=== PATIENT | female | born 1945 ===

== ENCOUNTER 2016-10-11 11:16 | Emergency (ER) | payer MEDICARE, MEDICAID ==
[2016-10-11] MEDS ORDERED: Albuterol-Ipratrop 3 mg / 0.5 (3 ml) UD ONE ×2 (11:21→12:31)
[2016-10-11 11:24] VITALS: BMI 24.0
[2016-10-11] MEDS: Albuterol-Ipratrop 3 mg / 0.5 (3 ml) UD IH SCH ×3 (12:00→12:48)
--- NOTE | 2016-10-11 12:12 | RAD ---
HISTORY: sob wheezing copd COMPARISON: Multiple chest radiographs most recently from 09/17/2016. TECHNIQUE: Chest PA and lateral FINDINGS: LUNGS: Scarring, bronchiectasis and architectural distortion in the upper lobes bilaterally. Mild hazy opacities in the lung bases likely atelectasis. Please note that chest x-ray has limited sensitivity for the detection of pulmonary masses. PLEURA: No significant pleural effusion identified. No pneumothorax apparent.Biapical pleural parenchymal thickening noted. CARDIOVASCULAR: Normal. OSSEOUS STRUCTURES: The osseous structures demonstrate degenerative changes. VISUALIZED UPPER ABDOMEN: Upper abdomen is suboptimally evaluated. OTHER FINDINGS: None. IMPRESSION: Interstitial changes in both lungs as before. No significant interval change.
[2016-10-11 12:19] LABS: BASO # 0.1 K/uL (0.0-0.2); BASO % 0.5 % (0.0-2.0); EOS # 0.5 K/uL (0.0-0.7); HEMATOCRIT 45.1 % (34.0-47.0); LYMPH # 1.1 K/uL (1.0-4.3); LYMPH % 10.8 % (20.0-40.0); MEAN CELL VOLUME 86.6 fL (81.0-99.0); MEAN CORPUSCULAR HEMOGLOBIN 28.1 pg (27.0-31.0); MEAN CORPUSCULAR HGB CONC 32.4 g/dL (33.0-37.0); MEAN PLATELET VOLUME 9.5 fL (7.2-11.7); MONO # 0.6 K/uL (0.0-0.8); MONO % 6.2 % (0.0-10.0); RED CELL DISTRIBUTION WIDTH 15.6 % (11.5-14.5); WHITE BLOOD COUNT 10.3 K/uL (4.8-10.8)
[2016-10-11 12:26] LABS: CHLORIDE 97 mmol/L (98-107); POTASSIUM 3.9 mmol/L (3.6-5.2); SODIUM 142 mmol/L (132-148)
[2016-10-11 12:28] LABS: GFR AFRICAN-AMERICAN > 60
[2016-10-11 12:29] LABS: ALB/GLOB RATIO 1.2 (1.0-2.1); ALKALINE PHOSPHATASE 60 U/L (38-126); ALT/SGPT 17 U/L (9-52); AST/SGOT 21 U/L (14-36); BILIRUBIN,TOTAL 0.7 mg/dL (0.2-1.3); BLOOD UREA NITROGEN 8 mg/dL (7-17); CARBON DIOXIDE 32 mmol/L (22-30); GLUCOSE,RANDOM 85 mg/dL (65-105); TOTAL PROTEIN 7.5 g/dL (6.3-8.3)
[2016-10-11 12:30] LABS: CALCIUM 8.8 mg/dl (8.6-10.4)
--- NOTE | 2016-10-11 12:48 | C.PDOC ---
History Of Present Illness 71-year-old female, PMHx includes Asthma and COPD, presents to the emergency department with complaints of shortness of breath, wheezing and chest tightness that started two days ago. Patient reports using her Albuterol at home with minimal relief. Notes that symptoms are consistent with her asthma exacerbation. Denies nausea/vomiting, cough, dizziness, diarrhea, headaches, swelling in extremities, or any other associated symptoms. No other complaints at this time. PMD Shane Jones MD. Time Seen by Provider: 10/11/16 11:43 Chief Complaint (Nursing): Shortness Of Breath History Per: Patient History/Exam Limitations: no limitations Onset/Duration Of Symptoms: Days Current Symptoms Are (Timing): Still Present Past Medical History Reviewed: Historical Data, Nursing Documentation, Vital Signs Vital Signs: Last Vital Signs Temp 98.4 F 10/11/16 13:55 Pulse 78 10/11/16 13:55 Resp 18 10/11/16 13:55 BP 120/72 10/11/16 13:55 Pulse Ox 98 10/11/16 13:55 - Medical History PMH: Arthritis, Asthma, COPD, Diabetes, HTN Denies: Chronic Kidney Disease Family History: States: Unknown Family Hx - Social History Hx Tobacco Use: Yes Hx Alcohol Use: Yes Hx Substance Use: No - Immunization History Hx Tetanus Toxoid Vaccination: No Hx Influenza Vaccination: Yes Hx Pneumococcal Vaccination: Yes Review Of Systems Except As Marked, All Systems Reviewed And Found Negative. Constitutional: Negative for: Fever, Chills Cardiovascular: Positive for: Chest Pain. Negative for: Palpitations, Edema, Light Headedness Respiratory: Positive for: Shortness of Breath, Wheezing. Negative for: Cough Gastrointestinal: Negative for: Nausea, Vomiting Musculoskeletal: Negative for: Neck Pain, Back Pain Skin: Negative for: Rash Neurological: Negative for: Weakness, Numbness, Headache, Dizziness Physical Exam - Physical Exam Appears: Non-toxic, No Acute Distress Skin: Warm, Dry, No Rash Head: Atraumatic, Normacephalic Eye(s): bilateral: Normal Inspection, PERRL, EOMI Nose: Normal Oral Mucosa: Moist Lips: Normal Appearing Neck: Normal ROM Cardiovascular: Rhythm Regular Respiratory: No Accessory Muscle Use, No Rales, No Rhonchi, Wheezing (diffuse expiratory), Other (increased end expiratory phase) Gastrointestinal/Abdominal: Soft, No Tenderness Extremity: Normal ROM Neurological/Psych: Oriented x3, Normal Speech ED Course And Treatment - Laboratory Results Result Diagrams: 10/11/16 12:15 10/11/16 12:15 ECG: Interpreted By Me, Viewed By Me ECG Rhythm: Sinus Rhythm ECG Interpretation: No Acute Changes Rate From EC O2 Sat by Pulse Oximetry: 100 - Radiology CXR: Viewed By Me, Read By Radiologist CXR Interpretation: Yes: Other (INTERSTITIAL CHANGES IN BOTH LUNGS BEFORE. NO SIGNIFICANT INTERVAL CHANGE) Medical Decision Making Medical Decision Makin the pt feels much better. SOB is resolved. spo2 94% on RA while ambulating. pt comfortable w dc and plan for rx. follow up and return precautions advised. Disposition - Disposition Referrals: Shaik Lynn MD [Staff Provider] - Disposition: HOME/ ROUTINE Disposition Time: 13:37 Condition: IMPROVED Additional Instructions: Please follow up with your doctor on Friday. Return to the ER for any worsening symptoms or for any other concerns. Prescriptions: Prednisone [Deltasone] 40 mg PO DAILY #8 tablet Albuterol/Ipratropium [Duoneb 3 MG/3 Ml-0.5 MG/3 Ml 3 Ml] 3 ml IH Q6H PRN #20 neb PRN Reason: Wheezing Instructions: COPD (Chronic Obstructive Pulmonary Disease) (ED) Forms: Gen Discharge Inst Kyrgyz Print Language: FRISIAN - Clinical Impression Clinical Impression: COPD exacerbation - Scribe Statement The provider has reviewed the documentation as recorded by the Scribe Rohan Owen All medical record entries made by the Scribe were at my direction and personally dictated by me. I have reviewed the chart and agree that the record accurately reflects my personal performance of the history, physical exam, medical decision making, and the department course for this patient. I have also personally directed, reviewed, and agree with the discharge instructions and disposition.
[2016-10-11 14:00] VITALS: BP 120/72; PULSE 78; RESP 18; TEMP 98.4
[2016-10-11 18:27] VITALS: O2SAT 100
--- NOTE | 2016-10-13 06:46 | CARD ---
APPROVED REPORT EKG Measurement Heart [id number] <Conclusion> Normal sinus rhythm Left anterior fascicular block Abnormal ECG
== END 2016-10-11 14:09 | disposition home or self-care (01) ==
LOC: C.ER 11:16
DX: J44.1 Chronic obstructive pulmonary disease with (acute) exacerbation (principal)
CPT/HCPCS: 71020; 80053; 84484; 85025; 93005; 94640; 96374; 99285; J2930

== ENCOUNTER 2016-10-16 05:51 | Emergency (ER) | payer MEDICARE, MEDICAID ==
[2016-10-16 05:51] VITALS: BMI 24.0
[2016-10-16] MEDS ORDERED: Albuterol-Ipratrop 3 mg / 0.5 (3 ml) UD ONE ×2 (06:08→06:31)
[2016-10-16] MEDS ORDERED: Albuterol-Ipratrop 3 mg / 0.5 (3 ml) UD INH STA (06:29)
--- NOTE | 2016-10-16 06:35 | C.PDOC ---
History Of Present Illness 71 y/o female presents to ED who reports she was feeling chest tightness and wheezing while sleeping prior to arrival. Patient notes she is currently taking prednisone and albuterol inhaler for similar symptoms. However, patient states she accidentally grabbed in the dark a small bottle of a fabric softener by accident and sprayed fabric softener in her mouth instead of her inhaler. She notes that she became a little dizzy soon after. On arrival, patient notes dizziness has subsided. Denies chest pain, palpitations, nausea, vomiting, fever , chills, rash or any other complaints. Time Seen by Provider: 10/16/16 06:20 Chief Complaint (Nursing): Dizziness/Lightheaded History Per: Patient History/Exam Limitations: no limitations Onset/Duration Of Symptoms: Mins Current Symptoms Are (Timing): Still Present Fall Associated With With Symptoms: No Recent travel outside of the [place]: No Past Medical History Reviewed: Historical Data, Nursing Documentation, Vital Signs Vital Signs: Last Vital Signs Temp 98 F 10/16/16 06:02 Pulse 95 H 10/16/16 06:02 Resp 20 10/16/16 06:02 BP 155/95 H 10/16/16 06:02 Pulse Ox 98 10/16/16 06:35 - Medical History PMH: Arthritis, Asthma, COPD, Diabetes, HTN Family History: States: Unknown Family Hx - Social History Hx Tobacco Use: Yes Hx Alcohol Use: No Hx Substance Use: No - Immunization History Hx Tetanus Toxoid Vaccination: No Hx Influenza Vaccination: No Hx Pneumococcal Vaccination: No Review Of Systems Except As Marked, All Systems Reviewed And Found Negative. Constitutional: Negative for: Fever Cardiovascular: Negative for: Chest Pain, Palpitations Respiratory: Positive for: Wheezing. Negative for: Shortness of Breath Gastrointestinal: Negative for: Vomiting Skin: Negative for: Rash Neurological: Negative for: Dizziness (resolved) Physical Exam - Physical Exam Appears: Non-toxic, No Acute Distress Skin: Normal Color, Warm, Dry Head: Atraumatic, Normacephalic Eye(s): bilateral: Normal Inspection, PERRL Oral Mucosa: Moist Tongue: Normal Appearing, No Swelling Lips: Normal Appearing, No Swelling Throat: Normal, No Erythema Chest: Symmetrical Cardiovascular: Rhythm Regular Respiratory: No Accessory Muscle Use, No Rales, No Rhonchi, Wheezing (expiratory ), Other (moving air) Back: Normal Inspection Extremity: Normal ROM, Capillary Refill Neurological/Psych: Oriented x3, Normal Speech, Normal Cognition Gait: Steady ED Course And Treatment O2 Sat by Pulse Oximetry: 98 (RA) Pulse Ox Interpretation: Normal Progress Note: Duoneb treatment x2 given. On reassessment, lung sounds are CTA , and VSS. Patient reports feeling better. Patient is speaking in complete sentences and is in no acute distress. Advised follow up with PMD within 1-2 days. 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 - Scribe Statement The provider has reviewed the documentation as recorded by the Klaus Tay Provider Scribe Attestation: All medical record entries made by the Klaus were at my direction and personally dictated by me. I have reviewed the chart and agree that the record accurately reflects my personal performance of the history, physical exam, medical decision making, and the department course for this patient. I have also personally directed, reviewed, and agree with the discharge instructions and disposition.
--- NOTE | 2016-10-16 06:42 | C.PDOC ---
Time Seen by Provider: 10/16/16 06:20 Chief Complaint (Nursing): Dizziness/Lightheaded Past Medical History Vital Signs: Last Vital Signs Temp 98 F 10/16/16 06:02 Pulse 95 H 10/16/16 06:02 Resp 20 10/16/16 06:02 BP 155/95 H 10/16/16 06:02 Pulse Ox 98 10/16/16 06:02 - Medical History PMH: Arthritis, Asthma, COPD, Diabetes, HTN Denies: Chronic Kidney Disease Family History: States: Unknown Family Hx - Social History Hx Tobacco Use: Yes Hx Alcohol Use: No Hx Substance Use: No - Immunization History Hx Tetanus Toxoid Vaccination: No Hx Influenza Vaccination: No Hx Pneumococcal Vaccination: No ED Course And Treatment O2 Sat by Pulse Oximetry: 98 Disposition Counseled Patient/Family Regarding: Diagnosis, Need For Followup - Disposition Referrals: [facility] [Outside] Disposition: HOME/ ROUTINE Disposition Time: 06:43 Condition: STABLE Additional Instructions: Please follow up with PMD Continue albuterol inhaler Cntinue prednisone Return to ER if worse Instructions: Asthma (ED) - Clinical Impression Clinical Impression: Asthma
[2016-10-16 06:57] VITALS: BP 135/80; PULSE 101; RESP 18; TEMP 98; O2SAT 100
== END 2016-10-16 06:56 | disposition home or self-care (01) ==
LOC: C.ER 05:51
DX: J45.909 Unspecified asthma, uncomplicated (principal)

== ENCOUNTER 2016-11-25 09:30 | Emergency (ER) | payer MEDICARE, MEDICAID ==
[2016-11-25 09:30] VITALS: BMI 24.0
--- NOTE | 2016-11-25 10:49 | C.PDOC ---
History Of Present Illness Patient is a 71 year old female who presents to the ER with a complaint of a posterior headache, associated with dizziness and left shoulder pain radiating to the left arm since 05:00. Patient states she took aspirin with no improvement. Denies fever, chest pain, cough, SOB, nausea, or vomiting. Time Seen by Provider: 11/25/16 09:52 Chief Complaint (Nursing): Dizziness/Lightheaded History Per: Patient History/Exam Limitations: no limitations Onset/Duration Of Symptoms: Hrs (Since 05:00) Current Symptoms Are (Timing): Still Present Activity At Onset Of Symptoms: Other (Unknown) Associated Symptoms Preceding Syncopal Episode: Other (No syncopal episode) Seizure Or Post-ictal Symptoms: None Possible Causative Factor(s): Other (Unknown) Fall Associated With With Symptoms: No Recent travel outside of the [place]: No Past Medical History Reviewed: Historical Data, Nursing Documentation, Vital Signs Vital Signs: Last Vital Signs Temp 98.7 F 11/25/16 13:32 Pulse 77 11/25/16 13:32 Resp 20 11/25/16 13:32 BP 110/70 11/25/16 13:32 Pulse Ox 99 11/25/16 13:32 - Medical History PMH: Arthritis, Asthma, COPD, Diabetes, HTN Surgical History: No Surg Hx Family History: States: Unknown Family Hx - Social History Hx Tobacco Use: Yes Hx Alcohol Use: No Hx Substance Use: No - Immunization History Hx Tetanus Toxoid Vaccination: No Hx Influenza Vaccination: No Hx Pneumococcal Vaccination: No Review Of Systems Constitutional: Negative for: Fever Gastrointestinal: Negative for: Nausea, Vomiting Musculoskeletal: Positive for: Shoulder Pain (Left), Arm Pain (Left, radiating from left shoulder) Neurological: Positive for: Headache (Posterior), Dizziness Physical Exam - Physical Exam Appears: Well, Non-toxic, No Acute Distress Skin: Normal Color, Warm, Dry Head: Atraumatic, Normacephalic Eye(s): bilateral: Normal Inspection, PERRL, EOMI Oral Mucosa: Moist Chest: Symmetrical, Tenderness (midchest and left anterior chest wall) Cardiovascular: Rhythm Regular, No Murmur Respiratory: Normal Breath Sounds, No Rales, No Rhonchi, No Wheezing Gastrointestinal/Abdominal: Soft, No Tenderness Extremity: Normal ROM, Tenderness (diffuse left shoulder, no swelling), No Swelling Neurological/Psych: Oriented x3, Normal Speech, Normal Cognition ED Course And Treatment - Laboratory Results Result Diagrams: 11/25/16 10:44 11/25/16 10:44 ECG Rhythm: Sinus Rhythm ECG Interpretation: No Acute Changes Interpretation Of ECG: prolonged QT Rate From EC O2 Sat by Pulse Oximetry: 94 (Room air) Pulse Ox Interpretation: Normal - Other Rad CXR X-Ray: Viewed By Me, Read By Radiologist Interpretation: Accession No. : [id number]. Patient Name / ID : AGATHA SOLIS / [id number]. Exam Date : 11/25/2016 10:22:38 ( Approved ). Study Comment : Sex / Age : F / 71Y. Creator : Wilfredo Wisdom MD. Dictator : Wilfredo Wisdom MD. Cement And Concrete Plant Worker : Rubber Compounder Mixer : Wilfredo Wisdom MD. Approver2 : Report Date : 11/25/2016 13:31:31. My Comment : . PROCEDURE: CHEST RADIOGRAPH, 1 VIEW. HISTORY: left shoulder pain/dizzy. COMPARISON: 2016. FINDINGS: LUNGS: Confluent nodular consolidative changes at the left lung base with a rounded opacity at the left lung base. This may represent underlying atelectasis and or infiltrate; however, underlying lesion can't be excluded. Posttreatment follow-up and/or correlation with chest CT may be helpful if clinically indicated. Trace right left pleural effusion. Venous congestion. Biapical pleural thickening with upper lobe granulomatous changes. PLEURA: As above. CARDIOVASCULAR: Cardiomegaly. Calcification at the aortic knob. OSSEOUS STRUCTURES: No significant abnormalities. VISUALIZED UPPER ABDOMEN: Normal. OTHER FINDINGS: None. IMPRESSION: Confluent nodular consolidative changes at the left lung base with a rounded opacity at the left lung base. This may represent underlying atelectasis and or infiltrate; however , underlying lesion can't be excluded. Posttreatment follow-up and/or correlation with chest CT may be helpful if clinically indicated. Trace right left pleural effusion. Venous congestion. Biapical pleural thickening with upper lobe granulomatous changes. - CT Scan/US Head CT Other Rad Studies (CT/US): Read By Radiologist, Radiology Report Reviewed CT/US Interpretation: Accession No. : [id number]. Patient Name / ID : AGATHA SOLIS / [id number]. Exam Date : 11/25/2016 10:51:04 ( Approved ). Study Comment : Sex / Age : F / 71Y. Creator : Wilfredo Wisdom MD. Dictator : Wilfredo Wisdom MD. Cement And Concrete Plant Worker : Rubber Compounder Mixer : Wilfredo Wisdom MD. Approver2 : Report Date : 11/25/2016 11:14:27. My Comment : . PROCEDURE: CT HEAD WITHOUT CONTRAST. HISTORY: headache, dizziness. COMPARISON: None available. TECHNIQUE: Axial computed tomography images were obtained through the head/brain without intravenous contrast. Radiation dose: Total exam DLP = 1049 mGy-cm. This CT exam was performed using one or more of the following dose reduction techniques: Automated exposure control, adjustment of the mA and/ or kV according to patient size, and/or use of iterative reconstruction technique. FINDINGS: HEMORRHAGE: No intracranial hemorrhage. BRAIN: Scattered focal lucencies in the subcortical and periventricular white matter suggestive for chronic microvascular ischemic change. Bilateral basal ganglia calcifications. VENTRICLES: Unremarkable. No hydrocephalus. CALVARIUM: Unremarkable. PARANASAL SINUSES: Unremarkable as visualized. No significant inflammatory changes. MASTOID AIR CELLS: Unremarkable as visualized. No inflammatory changes. OTHER FINDINGS: Incidentally noted on the veneer lathe operator view is some mild anterolisthesis of C3 on C4. Intracranial arterial calcifications. IMPRESSION: Chronic microvascular ischemic change. Bilateral basal ganglia calcifications. If focal neurologic deficit persists, consider MRI. Progress Note: Blood work, EKG, CXR, urinalysis, and head CT w/o contrast ordered. Antivert PO administered. On re-evaluation patient feels better and wants to be d/c home. Disposition - Disposition Referrals: Shaik Lynn MD [Staff Provider] - Disposition: HOME/ ROUTINE Disposition Time: 12:55 Condition: STABLE Additional Instructions: Follow up with your PMD within 1-2 days. Return to ED if feel worse. Prescriptions: Meclizine [Meclizine*] 25 mg PO Q6 #30 tab Instructions: Dizziness (ED) Print Language: DIVEHI - Clinical Impression Clinical Impression: Dizziness - Scribe Statement The provider has reviewed the documentation as recorded by the Scribverona Flores All medical record entries made by the Aracelisibverona were at my direction and personally dictated by me. I have reviewed the chart and agree that the record accurately reflects my personal performance of the history, physical exam, medical decision making, and the department course for this patient. I have also personally directed, reviewed, and agree with the discharge instructions and disposition.
[2016-11-25 10:53] LABS: BASO % 0.3 % (0.0-2.0); EOS # 0.4 K/uL (0.0-0.7); EOS % 3.3 % (0.0-4.0); HEMATOCRIT 44.9 % (34.0-47.0); LYMPH # 1.1 K/uL (1.0-4.3); LYMPH % 8.6 % (20.0-40.0); MEAN CELL VOLUME 87.6 fL (81.0-99.0); MEAN CORPUSCULAR HEMOGLOBIN 28.5 pg (27.0-31.0); MEAN CORPUSCULAR HGB CONC 32.5 g/dL (33.0-37.0); MEAN PLATELET VOLUME 9.9 fL (7.2-11.7); MONO # 0.6 K/uL (0.0-0.8); MONO % 4.7 % (0.0-10.0); PLATELET COUNT 632 K/uL (130-400); RED CELL DISTRIBUTION WIDTH 15.5 % (11.5-14.5); WHITE BLOOD COUNT 12.3 K/uL (4.8-10.8)
[2016-11-25 11:02] LABS: CHLORIDE 95 mmol/L (98-107); SODIUM 141 mmol/L (132-148)
[2016-11-25 11:03] LABS: POTASSIUM 3.9 mmol/L (3.6-5.2)
[2016-11-25 11:04] LABS: GFR AFRICAN-AMERICAN > 60
[2016-11-25 11:05] LABS: ALB/GLOB RATIO 1.2 (1.0-2.1); ALKALINE PHOSPHATASE 69 U/L (38-126); AST/SGOT 22 U/L (14-36); BILIRUBIN,TOTAL 0.8 mg/dL (0.2-1.3); BLOOD UREA NITROGEN 8 mg/dL (7-17); CARBON DIOXIDE 32 mmol/L (22-30); GLUCOSE,RANDOM 102 mg/dL (65-105); TOTAL PROTEIN 7.6 g/dL (6.3-8.3)
[2016-11-25 11:06] LABS: ALT/SGPT 22 U/L (9-52); CALCIUM 8.8 mg/dl (8.6-10.4)
--- NOTE | 2016-11-25 11:15 | CT ---
PROCEDURE: CT HEAD WITHOUT CONTRAST. HISTORY: headache, dizziness COMPARISON: None available. TECHNIQUE: Axial computed tomography images were obtained through the head/brain without intravenous contrast. Radiation dose: Total exam DLP = 1049 mGy-cm. This CT exam was performed using one or more of the following dose reduction techniques: Automated exposure control, adjustment of the mA and/or kV according to patient size, and/or use of iterative reconstruction technique. FINDINGS: HEMORRHAGE: No intracranial hemorrhage. BRAIN: Scattered focal lucencies in the subcortical and periventricular white matter suggestive for chronic microvascular ischemic change. Bilateral basal ganglia calcifications. VENTRICLES: Unremarkable. No hydrocephalus. CALVARIUM: Unremarkable. PARANASAL SINUSES: Unremarkable as visualized. No significant inflammatory changes. MASTOID AIR CELLS: Unremarkable as visualized. No inflammatory changes. OTHER FINDINGS: Incidentally noted on the acreage reporter view is some mild anterolisthesis of C3 on C4. Intracranial arterial calcifications. IMPRESSION: Chronic microvascular ischemic change. Bilateral basal ganglia calcifications. If focal neurologic deficit persists, consider MRI.
[2016-11-25 11:43] LABS: EOSINOPHIL 3 % (0-4); NEUTROPHIL 88 % (50-75); TOTAL CELLS COUNTED 100
[2016-11-25 12:12] LABS: RBC URINE < 1 /hpf (0-3); URINE BILIRUBIN NEGATIVE (NEGATIVE); URINE BLOOD NEGATIVE (NEGATIVE); URINE COLOR Yellow (YELLOW); URINE GLUCOSE (UA) NORMAL (Normal); URINE KETONE NEGATIVE (NEGATIVE); URINE LEUKOCYTE ESTERASE 2+ Leu/uL (Negative); URINE PROTEIN NEGATIVE (NEGATIVE); URINE UROBILINOGEN NORMAL mg/dL (0.2-1.0); WBC URINE 5 /hpf (0-5)
--- NOTE | 2016-11-25 13:33 | RAD ---
PROCEDURE: CHEST RADIOGRAPH, 1 VIEW HISTORY: left shoulder pain/dizzy COMPARISON: 10/11/2016 FINDINGS: LUNGS: Confluent nodular consolidative changes at the left lung base with a rounded opacity at the left lung base. This may represent underlying atelectasis and or infiltrate; however, underlying lesion can't be excluded. Posttreatment follow-up and/or correlation with chest CT may be helpful if clinically indicated. Trace right left pleural effusion. Venous congestion. Biapical pleural thickening with upper lobe granulomatous changes. PLEURA: As above. CARDIOVASCULAR: Cardiomegaly. Calcification at the aortic knob. OSSEOUS STRUCTURES: No significant abnormalities. VISUALIZED UPPER ABDOMEN: Normal. OTHER FINDINGS: None. IMPRESSION: Confluent nodular consolidative changes at the left lung base with a rounded opacity at the left lung base. This may represent underlying atelectasis and or infiltrate; however, underlying lesion can't be excluded. Posttreatment follow-up and/or correlation with chest CT may be helpful if clinically indicated. Trace right left pleural effusion. Venous congestion. Biapical pleural thickening with upper lobe granulomatous changes.
[2016-11-25 13:40] VITALS: BP 110/70; PULSE 77; RESP 20; TEMP 98.7
[2016-11-25 14:28] VITALS: O2SAT 94
--- NOTE | 2016-11-26 07:40 | CARD ---
APPROVED REPORT EKG Measurement Heart [id number] <Conclusion> Normal sinus rhythm Left anterior fascicular block Prolonged QT Abnormal ECG
== END 2016-11-25 13:35 | disposition home or self-care (01) ==
LOC: C.ER 09:30
DX: R42 Dizziness and giddiness (principal)

== ENCOUNTER 2016-12-17 22:42 | Emergency (ER) | payer MEDICARE, MEDICAID ==
[2016-12-17 22:42] VITALS: BMI 24.0
[2016-12-17] MEDS ORDERED: Albuterol-Ipratrop 3 mg / 0.5 (3 ml) UD ONE ×2 (22:50→23:03)
--- NOTE | 2016-12-17 23:00 | C.PDOC ---
History Of Present Illness Pt presents with wheezing. It's her usual asthma exacerbation. Did a few albuterol nebs at home, without improvement. No f/c/n/v. Pt speaking in 3-4 word sentences Time Seen by Provider: 12/17/16 23:00 Chief Complaint (Nursing): Respiratory Distress History Per: Patient History/Exam Limitations: no limitations Onset/Duration Of Symptoms: Days Current Symptoms Are (Timing): Still Present Initiating Event: Upper Respiratory Illness Exacerbating Factor(s): Coughing Current Respiratory Medications: See Home Med List Severity: Severe Pain Scale Rating Of: 6 Associated Symptoms: denies: Fever, Chills Reports Recently: Seen In ED, Treated By A Physician, Hospitalized Additional History Per: Patient Past Medical History Reviewed: Historical Data, Nursing Documentation, Vital Signs Vital Signs: Last Vital Signs Temp 97.4 F L 12/17/16 22:53 Pulse 96 H 12/17/16 22:53 Resp 23 12/17/16 22:53 BP 148/93 H 12/17/16 22:53 Pulse Ox 90 L 12/17/16 23:42 - Medical History PMH: Arthritis, Asthma, COPD, Diabetes, HTN Denies: Chronic Kidney Disease Family History: States: No Known Family Hx - Social History Hx Tobacco Use: Yes Hx Alcohol Use: No Hx Substance Use: No - Immunization History Hx Tetanus Toxoid Vaccination: No Hx Influenza Vaccination: No Hx Pneumococcal Vaccination: No Review Of Systems Constitutional: Negative for: Fever, Chills Eyes: Negative for: Vision Change ENT: Negative for: Throat Pain Cardiovascular: Negative for: Chest Pain, Palpitations Respiratory: Positive for: Shortness of Breath, Wheezing Gastrointestinal: Negative for: Nausea, Vomiting, Abdominal Pain Genitourinary: Negative for: Dysuria Musculoskeletal: Negative for: Back Pain Skin: Negative for: Rash, Lesions, Jaundice, Bruising Neurological: Negative for: Weakness Psych: Negative for: Anxiety Physical Exam - Physical Exam Appears: Non-toxic, No Acute Distress Skin: Warm, Dry Head: Normacephalic Eye(s): bilateral: Normal Inspection Nose: No Flaring Oral Mucosa: Moist Throat: No Erythema Neck: Trachea Midline, Supple Chest: Symmetrical Cardiovascular: Rhythm Regular Respiratory: Decreased Breath Sounds, No Rales, Wheezing Gastrointestinal/Abdominal: Soft, No Tenderness, No Distention Back: Normal Inspection Extremity: Normal ROM Extremity: Bilateral: Atraumatic, Normal Color And Temperature Neurological/Psych: Oriented x3, Normal Speech, Normal Cognition Gait: Steady ED Course And Treatment - Laboratory Results Result Diagrams: 12/17/16 23:11 12/17/16 23:11 O2 Sat by Pulse Oximetry: 90 Pulse Ox Interpretation: Normal - Radiology CXR: Interpreted by Me, Viewed By Me CXR Interpretation: Yes: Other (fibrotic intrtitial changes , unchanged from 11/25). No: Infiltrates, Fracture, Pnemothorax Reevaluation Time: 23:59 Reassessment Condition: Improved Critical Care Time - Critical Care Note Total Time (in mins): 30 Documented critical care: time excludes all time spent performing seperately billable procedures. Disposition Counseled Patient/Family Regarding: Studies Performed, Diagnosis, Need For Followup - Disposition Referrals: Shaik Lynn MD [Staff Provider] - Disposition: HOME/ ROUTINE Disposition Time: 23:00 Condition: FAIR Prescriptions: Albuterol/Ipratropium [Duoneb 3 MG/3 Ml-0.5 MG/3 Ml 3 Ml] 3 ml IH QID PRN #50 neb PRN Reason: asthma Prednisone [Deltasone] 20 mg PO DAILY #5 tablet Instructions: Asthma (DC) - Clinical Impression Clinical Impression: Asthma exacerbation
[2016-12-17 23:17] LABS: BASO # 0.1 K/uL (0.0-0.2); BASO % 0.8 % (0.0-2.0); EOS # 1.2 K/uL (0.0-0.7); EOS % 10.6 % (0.0-4.0); LYMPH # 1.9 K/uL (1.0-4.3); LYMPH % 16.8 % (20.0-40.0); MEAN CELL VOLUME 87.5 fL (81.0-99.0); MEAN CORPUSCULAR HEMOGLOBIN 28.9 pg (27.0-31.0); MEAN CORPUSCULAR HGB CONC 33.1 g/dL (33.0-37.0); MEAN PLATELET VOLUME 9.3 fL (7.2-11.7); MONO # 0.9 K/uL (0.0-0.8); MONO % 7.7 % (0.0-10.0); NRBC % 0.1 % (0.0-2.0); WHITE BLOOD COUNT 11.3 K/uL (4.8-10.8)
[2016-12-17] MEDS: Albuterol-Ipratrop 3 mg / 0.5 (3 ml) UD IH SCH (23:20)
[2016-12-17 23:21] LABS: CHLORIDE 98 mmol/L (98-107)
[2016-12-17 23:22] LABS: POTASSIUM 4.1 mmol/L (3.6-5.2); SODIUM 139 mmol/L (132-148)
[2016-12-17 23:24] LABS: ALB/GLOB RATIO 1.3 (1.0-2.1); AST/SGOT 22 U/L (14-36); BILIRUBIN,TOTAL 0.8 mg/dL (0.2-1.3); CARBON DIOXIDE 34 mmol/L (22-30); GFR AFRICAN-AMERICAN > 60; TOTAL PROTEIN 7.2 g/dL (6.3-8.3)
[2016-12-17 23:25] LABS: ALKALINE PHOSPHATASE 67 U/L (38-126); ALT/SGPT 21 U/L (9-52); BLOOD UREA NITROGEN 9 mg/dL (7-17); GLUCOSE,RANDOM 100 mg/dL (65-105)
[2016-12-18] MEDS ORDERED: Albuterol-Ipratrop 3 mg / 0.5 (3 ml) UD ONE (00:09)
[2016-12-18 00:20] VITALS: RESP 26
[2016-12-18 00:24] VITALS: BP 140/88; PULSE 70; TEMP 98.7; O2SAT 99
--- NOTE | 2016-12-18 09:20 | RAD ---
PROCEDURE: CHEST RADIOGRAPH, 1 VIEW HISTORY: SOB COMPARISON: 11/25/2016 FINDINGS: LUNGS: Worsening ill-defined linear consolidative changes at the right upper to mid lung zone. Patchy increased markings at both lung bases ; left greater than right. Venous congestion. Scattered nodularity at the lung bases. PLEURA: As above. CARDIOVASCULAR: Tortuous aorta. OSSEOUS STRUCTURES: No significant abnormalities. VISUALIZED UPPER ABDOMEN: Normal. OTHER FINDINGS: None. IMPRESSION: Worsening ill-defined linear consolidative changes at the right upper to mid lung zone. Patchy increased markings at both lung bases ; left greater than right. Venous congestion. Scattered nodularity at the lung bases.
== END 2016-12-18 00:20 | disposition home or self-care (01) ==
LOC: C.ER 22:42
DX: J45.901 Unspecified asthma with (acute) exacerbation (principal)
CPT/HCPCS: 71010; 80053; 85025; 85610; 85730; 87040; 94640; 96374; 99284; J2930

== ENCOUNTER 2016-12-24 10:29 | Emergency (ER) | payer MEDICARE, MEDICAID ==
[~2016-12-24 10:29] MED LIST: Albuterol-Ipratrop 3 mg / 0.5 (3 ml) UD INH STA
[2016-12-24 10:34] VITALS: BMI 25.1
[2016-12-24] MEDS ORDERED: Albuterol-Ipratrop 3 mg / 0.5 (3 ml) UD INH STA (10:39)
[2016-12-24] MEDS ORDERED: Albuterol-Ipratrop 3 mg / 0.5 (3 ml) UD ONE ×2 (10:39→11:45)
[2016-12-24] MEDS ORDERED: Albuterol-Ipratrop 3 mg / 0.5 (3 ml) UD IH STA (11:11)
[2016-12-24 11:52] LABS: BASO % 0.5 % (0.0-2.0); EOS # 0.9 K/uL (0.0-0.7); EOS % 9.4 % (0.0-4.0); HEMATOCRIT 44.5 % (34.0-47.0); LYMPH # 1.5 K/uL (1.0-4.3); LYMPH % 15.2 % (20.0-40.0); MEAN CELL VOLUME 87.8 fL (81.0-99.0); MEAN CORPUSCULAR HGB CONC 33.1 g/dL (33.0-37.0); MEAN PLATELET VOLUME 9.7 fL (7.2-11.7); MONO # 0.7 K/uL (0.0-0.8); MONO % 7.1 % (0.0-10.0); WHITE BLOOD COUNT 10.1 K/uL (4.8-10.8)
[2016-12-24 12:11] LABS: RBC URINE 1 /hpf (0-3); URINE BILIRUBIN NEGATIVE (NEGATIVE); URINE BLOOD NEGATIVE (NEGATIVE); URINE COLOR Yellow (YELLOW); URINE GLUCOSE (UA) NORMAL (Normal); URINE KETONE NEGATIVE (NEGATIVE); URINE LEUKOCYTE ESTERASE TRACE Leu/uL (Negative); URINE PROTEIN NEGATIVE (NEGATIVE); URINE UROBILINOGEN NORMAL mg/dL (0.2-1.0); WBC URINE 1 /hpf (0-5)
[2016-12-24 12:16] LABS: CHLORIDE 101 mmol/L (98-107)
[2016-12-24 12:17] LABS: POTASSIUM 3.8 mmol/L (3.6-5.2); SODIUM 140 mmol/L (132-148)
[2016-12-24 12:19] LABS: BILIRUBIN,TOTAL 0.7 mg/dL (0.2-1.3); CARBON DIOXIDE 33 mmol/L (22-30); GFR AFRICAN-AMERICAN > 60
[2016-12-24 12:20] LABS: ALB/GLOB RATIO 1.3 (1.0-2.1); ALKALINE PHOSPHATASE 68 U/L (38-126); ALT/SGPT 19 U/L (9-52); AST/SGOT 19 U/L (14-36); BLOOD UREA NITROGEN 10 mg/dL (7-17); CALCIUM 8.3 mg/dl (8.6-10.4); GLUCOSE,RANDOM 89 mg/dL (65-105); TOTAL PROTEIN 6.9 g/dL (6.3-8.3)
[2016-12-24 13:24] VITALS: BP 128/61; PULSE 81; RESP 20; TEMP 98.2
[2016-12-24 13:25] VITALS: O2SAT 97
--- NOTE | 2016-12-24 13:25 | C.PDOC ---
History Of Present Illness The patient, a 71 y/o female whose PMHx includes COPD, presents to the ED for evaluation of wheezing and shortness of breath which began yesterday. Patient states she ran out of her Duoneb treatment at home. She denies fever, chills, chest pain, cough, vomiting, extremity numbness/weakness. Time Seen by Provider: 12/24/16 10:51 Chief Complaint (Nursing): Shortness Of Breath History Per: Patient History/Exam Limitations: no limitations Onset/Duration Of Symptoms: Hrs Current Symptoms Are (Timing): Still Present Initiating Event: Other (+exacerbation of COPD ) Quality: denies: "Pain" Current Respiratory Medications: See Home Med List Associated Symptoms: denies: Fever, Chills, Chest Pain, Bloody Cough Additional History Per: Patient Past Medical History Vital Signs: Last Vital Signs Temp 98.2 F 12/24/16 13:10 Pulse 81 12/24/16 13:10 Resp 20 12/24/16 13:10 BP 128/61 12/24/16 13:10 Pulse Ox 97 12/24/16 15:21 - Medical History PMH: Arthritis, Asthma, COPD, Diabetes, HTN Denies: Chronic Kidney Disease Family History: States: Unknown Family Hx - Social History Hx Tobacco Use: Yes Hx Alcohol Use: No Hx Substance Use: No - Immunization History Hx Tetanus Toxoid Vaccination: No Hx Influenza Vaccination: No Hx Pneumococcal Vaccination: No Review Of Systems Except As Marked, All Systems Reviewed And Found Negative. Cardiovascular: Negative for: Palpitations Respiratory: Positive for: Shortness of Breath, Wheezing. Negative for: Cough Gastrointestinal: Negative for: Nausea, Vomiting Neurological: Negative for: Weakness, Numbness Physical Exam - Physical Exam Appears: Non-toxic, No Acute Distress Skin: Normal Color, Warm, Dry Head: Atraumatic, Normacephalic Eye(s): bilateral: Normal Inspection Ear(s): Bilateral: Normal Nose: Normal, No Discharge Oral Mucosa: Moist Throat: Normal, No Erythema, No Exudate Neck: Normal ROM, Supple Chest: Symmetrical, No Deformity, No Tenderness Cardiovascular: Rhythm Regular, No Murmur Respiratory: No Rales, No Rhonchi, Wheezing (audible, bilaterally ) Back: Normal Inspection, No Vertebral Tenderness, No Paraspinal Tenderness Extremity: Normal ROM, Capillary Refill (less than 2 seconds ) Neurological/Psych: Oriented x3, Normal Speech, Normal Cognition Gait: Steady ED Course And Treatment - Laboratory Results Result Diagrams: 12/24/16 11:43 12/24/16 12:04 ECG: Interpreted By Me, Viewed By Me ECG Rhythm: Sinus Rhythm Interpretation Of ECG: Sinus Rhythm at rate 77 bpm. Incomplete right bundle branch block. Left axis deviation. Rate From EC O2 Sat by Pulse Oximetry: 97 (on RA) Pulse Ox Interpretation: Normal - Other Rad CXR X-Ray: Interpreted by Me, Viewed By Me, Read By Radiologist Interpretation: Accession No. : [id number]. Patient Name / ID : AGATHA SOLIS / [id number]. Exam Date : 12/24/2016 11:20:37 ( Approved ). Study Comment : Sex / Age : F / 71Y. Creator : Kade Jimenez MD. Dictator : Kade Jimenez MD. Biological Lab Technician : Catheter Builder : Kade Jimenez MD. Approver2 : Report Date : 12/24/2016 13:46:10. My Comment : . PROCEDURE: CHEST RADIOGRAPH, 1 VIEW. Portable study 11:30. HISTORY: SOB. COMPARISON: 12/17/2016. FINDINGS: LUNGS: Stable upper lobe infiltrate/scarring. Stable atelectasis at the lung bases. PLEURA: No pneumothorax or pleural fluid seen. CARDIOVASCULAR: No radiographic findings to suggest acute or significant cardiovascular disease. OSSEOUS STRUCTURES: No significant abnormalities. VISUALIZED UPPER ABDOMEN: Normal. OTHER FINDINGS: None. IMPRESSION: Stable infiltrates compared the prior chest x-ray. . No acute/significant interval changes. Progress Note: labs, EKG, CXR ordered and reviewed. lab and CXR results show no acute changes. Patient received Albuterol IH X3 and solu-medrol IV. On reassessment, patient is resting comfortably and reports an improvement in her symptoms. Repeat lung examination shows diffuse wheezing. Patient was offered option to stay in observation. Patient states she is in no distress, her symptoms have improved, and wishes to be discharged home. Patient was dischaged with Rx and is advised to f/u with her PMD within 1-2 days for further evaluation. Reassessment Condition: Improved Disposition - Disposition Referrals: Shaik Lynn MD [Staff Provider] - Disposition: HOME/ ROUTINE Disposition Time: 13:18 Condition: IMPROVED Additional Instructions: Follow up with PMD within 1-2 days. Return to ED if feel worse. Prescriptions: Albuterol/Ipratropium [Duoneb 3 MG/3 Ml-0.5 MG/3 Ml 3 Ml] 1 ea IH Q4 #100 vial predniSONE [predniSONE Tab] 2 tab PO DAILY #8 tab Instructions: COPD (Chronic Obstructive Pulmonary Disease) (ED) - Clinical Impression Clinical Impression: COPD exacerbation - PA / [place] TECHNICIAN / Resident Statement MD/DO has reviewed & agrees with the documentation as recorded. - Scribe Statement The provider has reviewed the documentation as recorded by the Scribe (Judy Contreras) All medical record entries made by the Scribe were at my direction and personally dictated by me. I have reviewed the chart and agree that the record accurately reflects my personal performance of the history, physical exam, medical decision making, and the department course for this patient. I have also personally directed, reviewed, and agree with the discharge instructions and disposition.
--- NOTE | 2016-12-24 13:48 | RAD ---
PROCEDURE: CHEST RADIOGRAPH, 1 VIEW. Portable study 11:30. HISTORY: SOB COMPARISON: 12/17/2016. FINDINGS: LUNGS: Stable upper lobe infiltrate/scarring. Stable atelectasis at the lung bases. PLEURA: No pneumothorax or pleural fluid seen. CARDIOVASCULAR: No radiographic findings to suggest acute or significant cardiovascular disease. OSSEOUS STRUCTURES: No significant abnormalities. VISUALIZED UPPER ABDOMEN: Normal. OTHER FINDINGS: None. IMPRESSION: Stable infiltrates compared the prior chest x-ray. . No acute/significant interval changes.
--- NOTE | 2016-12-26 12:18 | CARD ---
APPROVED REPORT EKG Measurement Heart [id number] VA 144P61 [id number] <Conclusion> Normal sinus rhythm Possible Left atrial enlargement Left axis deviation Incomplete right bundle branch block Abnormal ECG
== END 2016-12-24 14:00 | disposition home or self-care (01) ==
LOC: C.ER 10:29
DX: J44.1 Chronic obstructive pulmonary disease with (acute) exacerbation (principal); Z72.0 Tobacco use
CPT/HCPCS: 71010; 80053; 81001; 83880; 84484; 85025; 93005; 94640; 96374; 99285; J2930

== ENCOUNTER 2017-02-01 15:42 | Emergency (ER) | payer MEDICARE, MEDICAID ==
[2017-02-01 15:42] VITALS: BMI 25.1
--- NOTE | 2017-02-01 16:13 | C.PDOC ---
History Of Present Illness 71 y/o female, with PMHx of COPD and anxiety, presents to the ED for evaluation of headache, chronic wheezes and shortness of breath. She also notes pain from the top of her head to her left-sided neck region, which she states is typical. Patient states she was prescribed Tramadol for headache and neck pain. Patient admits to smoking 1/2 pack of cigarettes/day. Patient underwent Head CT on 2016 which was unremarkable. She denies fever, chills, cough. Time Seen by Provider: 02/01/17 16:03 Chief Complaint (Nursing): Headache History Per: Patient History/Exam Limitations: no limitations Onset/Duration Of Symptoms: Days Current Symptoms Are (Timing): Still Present Quality: Aching Preceeding Symptoms: denies: Visual Disturbances Associated Symptoms: denies: Photophobia, Blurred Vision, Nausea, Vomiting, Extremity Weakness Additional History Per: Patient Past Medical History Reviewed: Historical Data, Nursing Documentation, Vital Signs Vital Signs: Last Vital Signs Temp 98.9 F 02/01/17 18:14 Pulse 100 H 02/01/17 18:14 Resp 19 02/01/17 18:14 BP 156/62 H 02/01/17 18:14 Pulse Ox 93 L 02/01/17 20:43 - Medical History PMH: Arthritis, Asthma, COPD, Diabetes, HTN Surgical History: No Surg Hx Family History: States: Unknown Family Hx - Social History Hx Tobacco Use: Yes Hx Alcohol Use: Yes Hx Substance Use: No - Immunization History Hx Tetanus Toxoid Vaccination: No Hx Influenza Vaccination: No Hx Pneumococcal Vaccination: No Review Of Systems Constitutional: Negative for: Fever, Chills Respiratory: Positive for: Shortness of Breath, Wheezing (chronic ). Negative for: Cough Neurological: Positive for: Headache Physical Exam - Physical Exam Appears: Non-toxic, No Acute Distress, Other (anxious, argumentative, evasive ) Skin: Normal Color, Warm, Dry Head: Atraumatic Eye(s): bilateral: Normal Inspection Oral Mucosa: Moist Neck: Supple Chest: Symmetrical, No Deformity, No Tenderness Cardiovascular: Rhythm Regular, No Murmur Respiratory: No Rales, Rhonchi (mild, scattered ), No Wheezing Gastrointestinal/Abdominal: Soft, No Tenderness, No Guarding, No Rebound, Other (+obese ) Back: Normal Inspection, No Vertebral Tenderness Extremity: Normal ROM, Capillary Refill (less than 2 seconds ) Neurological/Psych: Normal Speech, Normal Cognition Gait: Steady ED Course And Treatment - Laboratory Results Result Diagrams: 02/01/17 16:34 02/01/17 16:34 Lab Interpretation: Normal (abg, no co2 retention, good sat) ECG: Interpreted By Me ECG Rhythm: Sinus Rhythm ECG Interpretation: Normal Rate From EC O2 Sat by Pulse Oximetry: 93 Pulse Ox Interpretation: Normal - Radiology CXR: Interpreted by Me CXR Interpretation: Yes: No Acute Disease, Other (chronic changes) - Other Rad CXR X-Ray: Interpreted by Me, Viewed By Me, Read By Radiologist Interpretation: IMPRESSION: No significant interval change since the previous exam noted. Progress Note: labs, EKG, CXR ordered and reviewed. Patient received Albuterol INH, Pepcid PO, Ultram PO, and prednisone PO. Reevaluation Time: 18:05 Reassessment Condition: Improved (TORIBIO improved, wants d/c. and referral to Neurology for chronic TORIBIO issues- already studied.) Disposition - Disposition Referrals: Shaik Lynn MD [Staff Provider] - Disposition: HOME/ ROUTINE Disposition Time: 18:10 Condition: GOOD Additional Instructions: continue Tylenol 975 mg every 6 hours as needed for headache pain Prednisone 40 mg daily for 4 more days- good for your COPD and Headache issues. Pepcid 20 mg @ night to prevent stomach irritation from the Prednisone. Prescriptions: Prednisone [Deltasone] 40 mg PO DAILY #8 tablet Instructions: Acute Headache (ED) - Clinical Impression Clinical Impression: COPD exacerbation, Headache - Scribe Statement The provider has reviewed the documentation as recorded by the Scribe (Judy Contreras) Provider Attestation: All medical record entries made by the Scribe were at my direction and personally dictated by me. I have reviewed the chart and agree that the record accurately reflects my personal performance of the history, physical exam, medical decision making, and the department course for this patient. I have also personally directed, reviewed, and agree with the discharge instructions and disposition.
[2017-02-01 16:36] LABS: BASO # 0.1 K/uL (0.0-0.2); BASO % 0.7 % (0.0-2.0); EOS # 0.6 K/uL (0.0-0.7); EOS % 5.4 % (0.0-4.0); HEMOGLOBIN 14.5 g/dL (11.0-16.0); LYMPH # 1.9 K/uL (1.0-4.3); LYMPH % 18.1 % (20.0-40.0); MEAN CELL VOLUME 87.9 fL (81.0-99.0); MEAN CORPUSCULAR HEMOGLOBIN 28.7 pg (27.0-31.0); MEAN CORPUSCULAR HGB CONC 32.7 g/dL (33.0-37.0); MEAN PLATELET VOLUME 9.4 fL (7.2-11.7); MONO # 0.9 K/uL (0.0-0.8); MONO % 8.2 % (0.0-10.0); NEUT # 7.1 K/uL (1.8-7.0); NEUT % 67.6 % (50.0-75.0); NRBC % 0.1 % (0.0-2.0); RBC 5.05 Mil/uL (3.80-5.20); RED CELL DISTRIBUTION WIDTH 14.9 % (11.5-14.5); WHITE BLOOD COUNT 10.5 K/uL (4.8-10.8)
[2017-02-01 16:38] LABS: ABG ALLEN TEST POS; ARTERIAL BLOOD GAS HCO3 27.5 mmol/L (21-28); ARTERIAL BLOOD GAS O2 SAT 98.5 % (95-98); ARTERIAL BLOOD GAS PCO2 44 mm/Hg (35-45); ARTERIAL BLOOD GAS PH 7.42 (7.35-7.45); ARTERIAL BLOOD GAS PO2 77 mm/Hg (80-100); ARTERIAL BLOOD GAS TCO2 29.9 mmol/L (22-28)
[2017-02-01 16:53] LABS: GFR AFRICAN-AMERICAN > 60; GFR NON-AFRICAN AMERICAN > 60
[2017-02-01 16:54] LABS: ALB/GLOB RATIO 1.2 (1.0-2.1); ALT/SGPT 20 U/L (9-52); AST/SGOT 26 U/L (14-36); BLOOD UREA NITROGEN 11 mg/dL (7-17)
[2017-02-01 16:55] LABS: CALCIUM 8.5 mg/dl (8.6-10.4)
[2017-02-01] MEDS ORDERED: Albuterol-Ipratrop 3 mg / 0.5 (3 ml) UD INH STA (17:08)
[2017-02-01] MEDS ORDERED: Albuterol-Ipratrop 3 mg / 0.5 (3 ml) UD ONE (17:13)
--- NOTE | 2017-02-01 17:22 | RAD ---
PROCEDURE: CHEST RADIOGRAPH, 1 VIEW HISTORY: SOB COMPARISON: Comparison is made to 12/24/2016 FINDINGS: LUNGS: No evidence of new infiltrate or consolidation in the lungs. Re- demonstration of reticular opacities in the lungs. PLEURA: No pneumothorax or pleural fluid seen. CARDIOVASCULAR: Normal. OSSEOUS STRUCTURES: No significant abnormalities. VISUALIZED UPPER ABDOMEN: Normal. OTHER FINDINGS: None. IMPRESSION: No significant interval change since the previous exam noted.
[2017-02-01 18:16] VITALS: BP 156/62; PULSE 100; RESP 19; TEMP 98.9
[2017-02-01 20:38] VITALS: O2SAT 93
--- NOTE | 2017-02-07 13:59 | CARD ---
APPROVED REPORT EKG Measurement Heart [id number] PA 148P64 [id number] <Conclusion> Normal sinus rhythm Possible Left atrial enlargement Left axis deviation Incomplete right bundle branch block Abnormal ECG
== END 2017-02-01 18:18 | disposition home or self-care (01) ==
LOC: C.ER 15:42
DX: J44.1 Chronic obstructive pulmonary disease with (acute) exacerbation (principal); R51 Headache
CPT/HCPCS: 36600; 71010; 80053; 82803; 84484; 85025; 94640; 99284; G0480

== ENCOUNTER 2017-02-27 00:35 | Inpatient (IN) | payer MEDICARE, MEDICAID ==
[2017-02-27 00:35] VITALS: BMI 25.1
[2017-02-27] MEDS ORDERED: Magnesium Sulfate 1 gm in D5W 2 GM/200 ML BAG IVPB ONE (00:42)
[2017-02-27] MEDS ORDERED: Magnesium Sulfate 1 gm in D5W 1 GM/100 ML BAG IVPB STA (00:48)
[2017-02-27] MEDS ORDERED: Magnesium Sulfate 1 gm in D5W 1 GM/100 ML BAG IVPB ONE (00:50)
[2017-02-27 01:15] LABS: BASO # 0.1 K/uL (0.0-0.2); BASO % 0.8 % (0.0-2.0); EOS # 1.5 K/uL (0.0-0.7); EOS % 14.8 % (0.0-4.0); HEMATOCRIT 45.4 % (34.0-47.0); LYMPH # 2.4 K/uL (1.0-4.3); MEAN CELL VOLUME 88.9 fL (81.0-99.0); MEAN CORPUSCULAR HEMOGLOBIN 28.8 pg (27.0-31.0); MEAN CORPUSCULAR HGB CONC 32.3 g/dL (33.0-37.0); MEAN PLATELET VOLUME 9.6 fL (7.2-11.7); MONO # 0.9 K/uL (0.0-0.8); MONO % 8.8 % (0.0-10.0); RED CELL DISTRIBUTION WIDTH 14.8 % (11.5-14.5); WHITE BLOOD COUNT 10.1 K/uL (4.8-10.8)
--- NOTE | 2017-02-27 01:22 | C.PDOC ---
History Of Present Illness 71 year old female with a Hx of asthma who presents to the ER complaint of SOB and wheezing that began today and has worsened tonight. Denies fever, chills, or chest pain. Chief Complaint (Nursing): Respiratory Distress History Per: Patient History/Exam Limitations: no limitations Onset/Duration Of Symptoms: Hrs Current Symptoms Are (Timing): Still Present Initiating Event: Other (Not known) Current Respiratory Medications: None Associated Symptoms: denies: Fever, Chills, Chest Pain, Bloody Cough, Productive Cough Past Medical History Reviewed: Historical Data, Nursing Documentation, Vital Signs Vital Signs: Last Vital Signs Temp 97.6 F 02/27/17 00:43 Pulse 86 02/27/17 01:35 Resp 20 02/27/17 01:35 BP 135/80 02/27/17 01:35 Pulse Ox 100 02/27/17 01:35 - Medical History PMH: Arthritis, Asthma, COPD, Diabetes, HTN Surgical History: No Surg Hx Family History: States: Unknown Family Hx - Social History Hx Tobacco Use: Yes Hx Alcohol Use: Yes Hx Substance Use: No - Immunization History Hx Tetanus Toxoid Vaccination: No Hx Influenza Vaccination: No Hx Pneumococcal Vaccination: No Review Of Systems Constitutional: Negative for: Fever, Chills Cardiovascular: Negative for: Chest Pain, Palpitations Respiratory: Positive for: Shortness of Breath, Wheezing Gastrointestinal: Negative for: Nausea, Vomiting Physical Exam - Physical Exam Appears: Non-toxic, Other (Dyspenic) Skin: Normal Color, Warm, Dry Head: Atraumatic, Normacephalic Oral Mucosa: Moist Chest: Symmetrical, No Tenderness Cardiovascular: Rhythm Regular, No Murmur Respiratory: No Rales, Rhonchi (Bilateral), No Wheezing Gastrointestinal/Abdominal: Soft, No Tenderness Neurological/Psych: Oriented x3, Normal Speech, Normal Cognition ED Course And Treatment - Laboratory Results Result Diagrams: 02/27/17 01:05 02/27/17 01:05 O2 Sat by Pulse Oximetry: 100 (Room air) Pulse Ox Interpretation: Normal Progress Note: EKG, blood work, and CXR ordered. Magnesium administered. Disposition Discussed With : Ja Contreras Doctor Will See Patient In The: Hospital Counseled Patient/Family Regarding: Diagnosis - Disposition Referrals: Shaik Lynn MD [Primary Care Provider] - Disposition: HOSPITALIZED Disposition Time: 03:16 Condition: STABLE Forms: [facility] (Portuguese) - POA Present On Arrival: None - Clinical Impression Clinical Impression: Exacerbation of asthma - Scribe Statement The provider has reviewed the documentation as recorded by the Scribe Ahsan Flores All medical record entries made by the Scribe were at my direction and personally dictated by me. I have reviewed the chart and agree that the record accurately reflects my personal performance of the history, physical exam, medical decision making, and the department course for this patient. I have also personally directed, reviewed, and agree with the discharge instructions and disposition.
[2017-02-27 01:38] LABS: ALB/GLOB RATIO 1.3 (1.0-2.1); ALKALINE PHOSPHATASE 68 U/L (38-126); ALT/SGPT 25 U/L (9-52); AST/SGOT 30 U/L (14-36); BILIRUBIN,TOTAL 0.4 mg/dL (0.2-1.3); BLOOD UREA NITROGEN 13 mg/dL (7-17); CALCIUM 8.5 mg/dl (8.6-10.4); CARBON DIOXIDE 31 mmol/L (22-30); CHLORIDE 101 mmol/L (98-107); GFR AFRICAN-AMERICAN > 60; GLUCOSE,RANDOM 89 mg/dL (65-105); POTASSIUM 4.1 mmol/L (3.6-5.2); SODIUM 140 mmol/L (132-148); TOTAL PROTEIN 6.5 g/dL (6.3-8.3)
[2017-02-27] MEDS ORDERED: Albuterol-Ipratrop 3 mg / 0.5 (3 ml) UD INH STA ×2 (02:34→02:36)
[2017-02-27] MEDS ORDERED: Albuterol-Ipratrop 3 mg / 0.5 (3 ml) UD ONE (02:36)
--- NOTE | 2017-02-27 03:16 | RAD ---
EXAM: XR Chest, 1 View CLINICAL HISTORY: 71 years old, female; Pain; Chest pain; Additional info: SOB TECHNIQUE: Frontal view of the chest. EXAM DATE/TIME: 02/27/2017 12:47 AM COMPARISON: CR - CHEST TWO VIEWS (PA/LAT) 01/20/2016 11:36:37 PM FINDINGS: The mediastinal cardiac silouette is normal in size. Again seen is a linear opacity in the right upper lung. Again seen are tiny nodular densities not significantly changed. No effusions are identified. The osseous structures are normal. IMPRESSION: No acute findings.
[2017-02-27] MEDS ORDERED: Fluticasone-Salmeterol 500-50mcg Diskus IH PRN (03:50)
[2017-02-27] MEDS ORDERED: Albuterol-Ipratrop 3 mg / 0.5 (3 ml) UD IH SCH (04:00)
[2017-02-27] MEDS ORDERED: MethylPREDNISolone 40 mg Vial ONE (05:42)
[2017-02-27] MEDS: Enoxaparin 40 mg Syringe SC SCH (10:37)
[2017-02-27] MEDS: Azithromycin 500 MG in Sodium Chloride 0.9% 250 ML IVPB SCH (11:01)
--- NOTE | 2017-02-27 12:10 | CP.PCM.CON ---
History of Present Illness - History of Present Illness History of Present Illness: 71 year old female with a Hx of asthma who presents to the ER complaint of SOB and wheezing that began today and has worsened tonight. Denies fever, chills, or chest pain. Review of Systems - Review of Systems All systems: reviewed and no additional remarkable complaints except (As mentioned in HPI) Past Patient History - Infectious Disease Hx of Infectious Diseases: None - Past Medical History & Family History Past Medical History?: Yes - Past Social History Smoking Status: Current Some Days Smoker - CARDIAC Hx Hypertension: Yes - PULMONARY Hx Asthma: Yes Hx Chronic Obstructive Pulmonary Disease (COPD): Yes - NEUROLOGICAL Hx Neurological Disorder: No - HEENT Other/Comment: USES GLASSES - RENAL Hx Chronic Kidney Disease: No - ENDOCRINE/METABOLIC Hx Endocrine Disorders: Yes Hx Diabetes Mellitus Type 2: Yes - HEMATOLOGICAL/ONCOLOGICAL Hx Blood Disorders: No - INTEGUMENTARY Hx Dermatological Problems: No - MUSCULOSKELETAL/RHEUMATOLOGICAL Hx Falls: No - GASTROINTESTINAL Hx Gastrointestinal Disorders: No - GENITOURINARY/GYNECOLOGICAL Hx Genitourinary Disorders: No - PSYCHIATRIC Hx Substance Use: No - SURGICAL HISTORY Hx Surgeries: Yes Hx Cardiac Catheterization: Yes - ANESTHESIA Hx Anesthesia: Yes Hx Anesthesia Reactions: No Hx Malignant Hyperthermia: No Meds Allergies/Adverse Reactions: Allergies Allergy/AdvReac Type Severity Reaction Status Date / Time moxifloxacin HCl Allergy Intermediate RASH Verified 02/01/17 15:52 [From Avelox] - Medications Medications: Current Medications Albuterol/Ipratropium (Duoneb 3 Mg/0.5 Mg (3 Ml) Ud) 3 ml IH RQ4 [facility] Enoxaparin Sodium (Lovenox) 40 mg SC DAILY [facility] Last Admin: 02/27/17 10:37 Dose: 40 mg Azithromycin 500 mg/ Sodium (Chloride) 250 mls @ 250 mls/hr IVPB DAILY [facility] Last Admin: 02/27/17 11:01 Dose: 250 mls/hr Ceftriaxone Sodium 1 gm/ (Sodium Chloride) 100 mls @ 100 mls/hr IVPB DAILY [facility] Last Admin: 02/27/17 11:00 Dose: 100 mls/hr Methylprednisolone (Solu-Medrol) 60 mg IV Q8 [facility] Last Admin: 02/27/17 05:57 Dose: 60 mg Montelukast Sodium (Singulair) 10 mg PO DAILY [facility] Last Admin: 08/10/17 10:43 Dose: 10 mg Fluticasone/Salmeterol (Advair Diskus 500/50) 1 puff IH RBID [facility] Sitagliptin Phosphate (Januvia) 50 mg PO DAILY [facility] Physical Exam - Head Exam Head Exam: NORMAL INSPECTION - Eye Exam Eye Exam: Normal appearance - ENT Exam ENT Exam: Mucous Membranes Moist - Respiratory Exam Respiratory Exam: Prolonged Expiratory Phase, Wheezes - Cardiovascular Exam Cardiovascular Exam: REGULAR RHYTHM, +S1, +S2 - GI/Abdominal Exam GI & Abdominal Exam: Normal Bowel Sounds, Soft - Extremities Exam Extremities exam: Positive for: normal inspection Results - Vital Signs Recent Vital Signs: Last Vital Signs Temp 97.9 F 02/27/17 08:05 Pulse 87 02/27/17 08:05 Resp 18 02/27/17 08:05 BP 109/70 02/27/17 08:05 Pulse Ox 95 02/27/17 08:05 - Labs Result Diagrams: 03/02/17 08:28 03/02/17 08:28 Assessment & Plan (1) COPD exacerbation Status: Acute - Assessment and Plan (Free Text) Plan: IV steroids Nebulizers Oxygen supplementation Chest PT Advair 250/50 micrograms 1 puff twice DVT GI prophylaxis
[2017-02-27] MEDS: Albuterol-Ipratrop 3 mg / 0.5 (3 ml) UD IH SCH ×4 (14:48→23:55)
--- NOTE | 2017-02-27 16:25 | CP.PCM.HP ---
Past Patient History - Infectious Disease Hx of Infectious Diseases: None - Past Medical History & Family History Past Medical History?: Yes - Past Social History Smoking Status: Current Some Days Smoker - CARDIAC Hx Hypertension: Yes - PULMONARY Hx Asthma: Yes Hx Chronic Obstructive Pulmonary Disease (COPD): Yes - NEUROLOGICAL Hx Neurological Disorder: No - HEENT Other/Comment: USES GLASSES - RENAL Hx Chronic Kidney Disease: No - ENDOCRINE/METABOLIC Hx Endocrine Disorders: Yes Hx Diabetes Mellitus Type 2: Yes - HEMATOLOGICAL/ONCOLOGICAL Hx Blood Disorders: No - INTEGUMENTARY Hx Dermatological Problems: No - MUSCULOSKELETAL/RHEUMATOLOGICAL Hx Falls: No - GASTROINTESTINAL Hx Gastrointestinal Disorders: No - GENITOURINARY/GYNECOLOGICAL Hx Genitourinary Disorders: No - PSYCHIATRIC Hx Substance Use: No - SURGICAL HISTORY Hx Surgeries: Yes Hx Cardiac Catheterization: Yes - ANESTHESIA Hx Anesthesia: Yes Hx Anesthesia Reactions: No Hx Malignant Hyperthermia: No Meds Allergies/Adverse Reactions: Allergies Allergy/AdvReac Type Severity Reaction Status Date / Time moxifloxacin HCl Allergy Intermediate RASH Verified 02/01/17 15:52 [From Avelox] Physical Exam - Constitutional Appears: Well - Head Exam Head Exam: ATRAUMATIC, NORMAL INSPECTION, NORMOCEPHALIC - Eye Exam Eye Exam: EOMI, Normal appearance, PERRL Pupil Exam: NORMAL ACCOMODATION, PERRL - ENT Exam ENT Exam: Mucous Membranes Moist, Normal Exam - Neck Exam Neck exam: Positive for: Normal Inspection - Respiratory Exam Respiratory Exam: Decreased Breath Sounds - Cardiovascular Exam Cardiovascular Exam: REGULAR RHYTHM, +S1, +S2 - GI/Abdominal Exam GI & Abdominal Exam: Diminished Bowel Sounds, Soft - Rectal Exam Rectal Exam: Deferred Results - Vital Signs Recent Vital Signs: Last Vital Signs Temp 97.9 F 02/27/17 08:05 Pulse 87 02/27/17 08:05 Resp 18 02/27/17 08:05 BP 109/70 02/27/17 08:05 Pulse Ox 95 02/27/17 08:05 - Labs Result Diagrams: 02/27/17 01:05 02/27/17 01:05 Labs: Laboratory Results - last 24 hr 02/27/17 12:17 POC Glucose (mg/dL) 161 H
[2017-02-27] MEDS: Fluticasone-Salmeterol 500-50mcg Diskus IH SCH (19:42)
[2017-02-27] MEDS: guaiFENesin 100 mg/5 ml Syrup UD PO PRN (20:57)
[2017-02-28] MEDS: Albuterol-Ipratrop 3 mg / 0.5 (3 ml) UD IH SCH ×5 (03:07→19:28)
[2017-02-28] MEDS: guaiFENesin 100 mg/5 ml Syrup UD PO PRN ×2 (06:08→22:06)
[2017-02-28] MEDS: Azithromycin 500 MG in Sodium Chloride 0.9% 250 ML IVPB SCH (09:01)
[2017-02-28] MEDS: Enoxaparin 40 mg Syringe SC SCH (09:01)
[2017-02-28] MEDS: Fluticasone-Salmeterol 500-50mcg Diskus IH SCH ×2 (09:57→19:28)
--- NOTE | 2017-02-28 10:08 | CP.PCM.PN ---
Subjective - Date & Time of Evaluation Date of Evaluation: 02/28/17 Time of Evaluation: 09:20 - Subjective Subjective: clinically same Objective - Vital Signs/Intake and Output Vital Signs (last 24 hours): Temp Pulse Resp BP Pulse Ox 98.3 F 106 H 20 126/79 93 L 02/28/17 07:05 02/28/17 07:05 02/28/17 07:05 02/28/17 07:05 02/28/17 07:05 - Medications Medications: Current Medications Albuterol/Ipratropium (Duoneb 3 Mg/0.5 Mg (3 Ml) Ud) 3 ml IH RQ4 [facility] Last Admin: 02/28/17 07:15 Dose: 3 ml Enoxaparin Sodium (Lovenox) 40 mg SC DAILY [facility] Last Admin: 02/28/17 09:01 Dose: 40 mg Guaifenesin (Robitussin) 100 mg PO Q4H PRN PRN Reason: Cough Last Admin: 02/28/17 06:08 Dose: 100 mg Azithromycin 500 mg/ Sodium (Chloride) 250 mls @ 250 mls/hr IVPB DAILY [facility] Last Admin: 02/28/17 09:01 Dose: 250 mls/hr Ceftriaxone Sodium 1 gm/ (Sodium Chloride) 100 mls @ 100 mls/hr IVPB DAILY [facility] Last Admin: 02/28/17 09:01 Dose: 100 mls/hr Methylprednisolone (Solu-Medrol) 60 mg IV Q8 [facility] Last Admin: 02/28/17 05:10 Dose: 60 mg Montelukast Sodium (Singulair) 10 mg PO DAILY [facility] Last Admin: 02/28/17 09:01 Dose: 10 mg Fluticasone/Salmeterol (Advair Diskus 500/50) 1 puff IH RBID [facility] Last Admin: 02/28/17 09:57 Dose: 1 puff Sitagliptin Phosphate (Januvia) 50 mg PO DAILY [facility] Last Admin: 02/28/17 09:01 Dose: 50 mg - Constitutional Appears: Well - Head Exam Head Exam: ATRAUMATIC, NORMAL INSPECTION, NORMOCEPHALIC - Eye Exam Eye Exam: EOMI, Normal appearance, PERRL Pupil Exam: NORMAL ACCOMODATION, PERRL - ENT Exam ENT Exam: Mucous Membranes Moist, Normal Exam - Neck Exam Neck Exam: Full ROM, Normal Inspection. absent: Lymphadenopathy - Respiratory Exam Respiratory Exam: Decreased Breath Sounds - Cardiovascular Exam Cardiovascular Exam: REGULAR RHYTHM, +S1, +S2 - GI/Abdominal Exam GI & Abdominal Exam: Soft, Diminished Bowel Sounds - Rectal Exam Rectal Exam: Deferred
--- NOTE | 2017-02-28 11:22 | CP.PCM.PN ---
Subjective - Date & Time of Evaluation Date of Evaluation: 02/28/17 Time of Evaluation: 09:40 - Subjective Subjective: Medicine Note- Dr. Contreras's service Patient was seen and examined at bedside. Patient reports no acute complaints at this time. She says her breathing is improved from when she first came in. She states that last night, she was feeling short of breath at night and that is why she came in. She says she has been to the hospital a number of times for her Asthma. No events overnight. Objective - Vital Signs/Intake and Output Vital Signs (last 24 hours): Temp Pulse Resp BP Pulse Ox 98.3 F 106 H 20 126/79 93 L 02/28/17 07:05 02/28/17 07:05 02/28/17 07:05 02/28/17 07:05 02/28/17 07:05 - Medications Medications: Current Medications Albuterol/Ipratropium (Duoneb 3 Mg/0.5 Mg (3 Ml) Ud) 3 ml IH RQ4 [facility] Last Admin: 02/28/17 11:02 Dose: 3 ml Enoxaparin Sodium (Lovenox) 40 mg SC DAILY [facility] Last Admin: 02/28/17 09:01 Dose: 40 mg Guaifenesin (Robitussin) 100 mg PO Q4H PRN PRN Reason: Cough Last Admin: 02/28/17 06:08 Dose: 100 mg Azithromycin 500 mg/ Sodium (Chloride) 250 mls @ 250 mls/hr IVPB DAILY [facility] Last Admin: 02/28/17 09:01 Dose: 250 mls/hr Ceftriaxone Sodium 1 gm/ (Sodium Chloride) 100 mls @ 100 mls/hr IVPB DAILY [facility] Last Admin: 02/28/17 09:01 Dose: 100 mls/hr Methylprednisolone (Solu-Medrol) 60 mg IV Q8 [facility] Last Admin: 02/28/17 05:10 Dose: 60 mg Montelukast Sodium (Singulair) 10 mg PO DAILY [facility] Last Admin: 02/28/17 09:01 Dose: 10 mg Fluticasone/Salmeterol (Advair Diskus 500/50) 1 puff IH RBID [facility] Last Admin: 02/28/17 09:57 Dose: 1 puff Sitagliptin Phosphate (Januvia) 50 mg PO DAILY [facility] Last Admin: 02/28/17 09:01 Dose: 50 mg - Constitutional Appears: Non-toxic, No Acute Distress - Head Exam Head Exam: ATRAUMATIC, NORMAL INSPECTION, NORMOCEPHALIC - Eye Exam Pupil Exam: NORMAL ACCOMODATION, PERRL - ENT Exam ENT Exam: Mucous Membranes Moist - Respiratory Exam Respiratory Exam: Prolonged Expiratory Phase, Rales, Wheezes. absent: Rhonchi - Cardiovascular Exam Cardiovascular Exam: REGULAR RHYTHM, +S1, +S2 - GI/Abdominal Exam GI & Abdominal Exam: Soft, Normal Bowel Sounds. absent: Tenderness, Diminished Bowel Sounds, Hernia, Hypoactive Bowel Sounds - Extremities Exam Extremities Exam: Normal Capillary Refill, Normal Inspection - Neurological Exam Neurological Exam: Alert, Awake, Oriented x3 - Psychiatric Exam Psychiatric exam: Normal Affect, Normal Mood - Skin Skin Exam: Dry, Intact, Normal Color, Warm Assessment and Plan - Assessment and Plan (Free Text) Assessment: Dyspnea secondary to Asthma exacerbation vs Pneumonia CXR- 02/27/17- Again see is a linear opacity in the RUL. Tiny nodular densities not significantly changes. No acute findings Afebrile, WBC 10.1 negative D dimer Continue Ceftriaxone 1gm Q24h and Azithromycin 500mg IVPB Daily Robitussin 100mg PO Q4h Solumedrol 60mg IV Q8h Singulair 10mg PO Daily Advair 500/50 1 puff IH RBID Duoneb Q4h [facility] Diabetes Januvia 50mg PO Daily Accuchecks RISS f/u [id number] Prophylactic Measure Lovenox 40mg SC Daily Protonix 40mg PO Daily
[2017-02-28] MEDS: (Novolin R) Insulin Human Regular 100 units/ml vial SC SCH ×3 (11:56→22:14)
--- NOTE | 2017-02-28 15:43 | CP.PCM.PN ---
Subjective - Date & Time of Evaluation Date of Evaluation: 02/28/17 Time of Evaluation: 15:40 - Subjective Subjective: CHART REVIEWED, PT SEEN AND EXAMINED, COVERING DR FIELDS. PT ALERT, +COUGH +SOB AT REST. ROS: OTHERWISE NEG. Objective - Vital Signs/Intake and Output Vital Signs (last 24 hours): Temp Pulse Resp BP Pulse Ox 98.3 F 106 H 20 126/79 93 L 02/28/17 07:05 02/28/17 07:05 02/28/17 07:05 02/28/17 07:05 02/28/17 07:05 Intake and Output: 02/28/17 02/28/17 06:59 18:59 Intake Total 780 Balance 780 - Medications Medications: Current Medications Albuterol/Ipratropium (Duoneb 3 Mg/0.5 Mg (3 Ml) Ud) 3 ml IH RQ4 [facility] Last Admin: 02/28/17 15:29 Dose: 3 ml Enoxaparin Sodium (Lovenox) 40 mg SC DAILY [facility] Last Admin: 02/28/17 09:01 Dose: 40 mg Guaifenesin (Robitussin) 100 mg PO Q4H PRN PRN Reason: Cough Last Admin: 02/28/17 06:08 Dose: 100 mg Azithromycin 500 mg/ Sodium (Chloride) 250 mls @ 250 mls/hr IVPB DAILY [facility] Last Admin: 02/28/17 09:01 Dose: 250 mls/hr Ceftriaxone Sodium 1 gm/ (Sodium Chloride) 100 mls @ 100 mls/hr IVPB DAILY [facility] Last Admin: 02/28/17 09:01 Dose: 100 mls/hr Insulin Human Regular (Novolin R) 0 unit SC ACHS [facility] PRN Reason: Protocol Last Admin: 02/28/17 11:56 Dose: Not Given Methylprednisolone (Solu-Medrol) 60 mg IV Q8 [facility] Last Admin: 02/28/17 13:07 Dose: 60 mg Montelukast Sodium (Singulair) 10 mg PO DAILY [facility] Last Admin: 02/28/17 09:01 Dose: 10 mg Pantoprazole Sodium (Protonix Ec Tab) 40 mg PO DAILY [facility] Fluticasone/Salmeterol (Advair Diskus 500/50) 1 puff IH RBID [facility] Last Admin: 02/28/17 09:57 Dose: 1 puff Sitagliptin Phosphate (Januvia) 50 mg PO DAILY [facility] Last Admin: 02/28/17 09:01 Dose: 50 mg - Constitutional Appears: Chronically Ill - Head Exam Head Exam: ATRAUMATIC, NORMOCEPHALIC - Eye Exam Eye Exam: EOMI, Normal appearance - ENT Exam ENT Exam: Mucous Membranes Moist - Respiratory Exam Respiratory Exam: Prolonged Expiratory Phase, Rhonchi, Wheezes - Cardiovascular Exam Cardiovascular Exam: RRR, +S1, +S2 - GI/Abdominal Exam GI & Abdominal Exam: Soft. absent: Tenderness - Rectal Exam Rectal Exam: Deferred - Extremities Exam Extremities Exam: absent: Calf Tenderness, Pedal Edema - Back Exam Back Exam: absent: CVA tenderness (L), CVA tenderness (R) - Neurological Exam Neurological Exam: Alert, Awake, CN II-XII Intact, Oriented x3 - Psychiatric Exam Psychiatric exam: Normal Affect - Skin Skin Exam: absent: Rash Assessment and Plan (1) Hypertension Status: Acute (2) Diabetes mellitus Status: Acute (3) COPD exacerbation Status: Acute (4) Pulmonary nodule, left Status: Acute - Assessment and Plan (Free Text) Assessment: 71 YO FEMALE WITH A HX MULT MED PROBS, ADM WITH ACUTE COPD EXAC., STILL WITH SIG BRONCHOSPASM. CONT IV STEROIDS., NEB BD., ADVAIR., MONITOR O2 SAT. EMPIRIC AB., CXR REVIEWED., CHECK CT CHEST FOR BETTER EVAL. DISCUSSED WITH STAFF.
[2017-03-01] MEDS: Albuterol-Ipratrop 3 mg / 0.5 (3 ml) UD IH SCH ×7 (00:32→23:46)
[2017-03-01] MEDS: guaiFENesin 100 mg/5 ml Syrup UD PO PRN (06:01)
[2017-03-01 07:19] LABS: HEMATOCRIT 44.2 % (34.0-47.0); MEAN CELL VOLUME 87.8 fL (81.0-99.0); MEAN CORPUSCULAR HEMOGLOBIN 28.9 pg (27.0-31.0); MEAN CORPUSCULAR HGB CONC 32.9 g/dL (33.0-37.0); MONO # 0.8 K/uL (0.0-0.8); MONO % 4.4 % (0.0-10.0)
[2017-03-01 07:31] LABS: PLATELET COUNT 625 K/uL (130-400); WHITE BLOOD COUNT 19.4 K/uL (4.8-10.8)
[2017-03-01 07:32] LABS: CHLORIDE 101 mmol/L (98-107); POTASSIUM 3.9 mmol/L (3.6-5.2); SODIUM 141 mmol/L (132-148)
[2017-03-01 07:34] LABS: BILIRUBIN,TOTAL 0.4 mg/dL (0.2-1.3); GFR AFRICAN-AMERICAN > 60
[2017-03-01 07:35] LABS: ALB/GLOB RATIO 1.2 (1.0-2.1); ALKALINE PHOSPHATASE 66 U/L (38-126); ALT/SGPT 30 U/L (9-52); AST/SGOT 25 U/L (14-36); BLOOD UREA NITROGEN 18 mg/dL (7-17); CALCIUM 9.6 mg/dl (8.6-10.4); CARBON DIOXIDE 30 mmol/L (22-30); GLUCOSE,RANDOM 110 mg/dL (65-105)
[2017-03-01] MEDS: Fluticasone-Salmeterol 500-50mcg Diskus IH SCH ×2 (08:06→19:31)
[2017-03-01 09:13] LABS: LARGE PLATELETS PRESENT; NEUTROPHIL 88 % (50-75); TOTAL CELLS COUNTED 100
[2017-03-01 09:14] LABS: GIANT PLATELETS PRESENT
[2017-03-01 09:16] LABS: PLATELET CLUMPS PRESENT
[2017-03-01] MEDS: Azithromycin 500 MG in Sodium Chloride 0.9% 250 ML IVPB SCH (09:36)
[2017-03-01] MEDS: (Novolin R) Insulin Human Regular 100 units/ml vial SC SCH ×4 (09:37→21:14)
[2017-03-01] MEDS: Enoxaparin 40 mg Syringe SC SCH (09:37)
--- NOTE | 2017-03-01 10:42 | CP.PCM.PN ---
Subjective - Date & Time of Evaluation Date of Evaluation: 03/01/17 Time of Evaluation: 10:38 - Subjective Subjective: COVERING DR FIELDS. PT ALERT, FEELS BETTER, LESS SOB., LESS COUGH NOW. ROS; OTHERWISE NEG Objective - Vital Signs/Intake and Output Vital Signs (last 24 hours): Temp Pulse Resp BP Pulse Ox 98.2 F 85 20 130/77 93 L 03/01/17 07:54 03/01/17 07:54 03/01/17 07:54 03/01/17 07:54 03/01/17 07:54 Intake and Output: 03/01/17 03/01/17 06:59 18:59 Intake Total 480 Balance 480 - Medications Medications: Current Medications Albuterol/Ipratropium (Duoneb 3 Mg/0.5 Mg (3 Ml) Ud) 3 ml IH RQ4 [facility] Last Admin: 03/01/17 07:40 Dose: 3 ml Enoxaparin Sodium (Lovenox) 40 mg SC DAILY [facility] Last Admin: 03/01/17 09:37 Dose: 40 mg Guaifenesin (Robitussin) 100 mg PO Q4H PRN PRN Reason: Cough Last Admin: 03/01/17 06:01 Dose: 100 mg Azithromycin 500 mg/ Sodium (Chloride) 250 mls @ 250 mls/hr IVPB DAILY [facility] Last Admin: 03/01/17 09:36 Dose: 250 mls/hr Ceftriaxone Sodium 1 gm/ (Sodium Chloride) 100 mls @ 100 mls/hr IVPB DAILY [facility] Last Admin: 03/01/17 09:36 Dose: 100 mls/hr Insulin Human Regular (Novolin R) 0 unit SC ACHS [facility] PRN Reason: Protocol Last Admin: 03/01/17 09:37 Dose: Not Given Methylprednisolone (Solu-Medrol) 60 mg IV Q8 [facility] Last Admin: 03/01/17 05:54 Dose: 60 mg Montelukast Sodium (Singulair) 10 mg PO DAILY [facility] Last Admin: 03/01/17 09:37 Dose: 10 mg Pantoprazole Sodium (Protonix Ec Tab) 40 mg PO DAILY [facility] Fluticasone/Salmeterol (Advair Diskus 500/50) 1 puff IH RBID [facility] Last Admin: 03/01/17 08:06 Dose: 1 puff Sitagliptin Phosphate (Januvia) 50 mg PO DAILY [facility] Last Admin: 03/01/17 09:37 Dose: 50 mg - Labs Labs: 03/01/17 07:08 03/01/17 07:08 - Constitutional Appears: Chronically Ill - Head Exam Head Exam: ATRAUMATIC, NORMOCEPHALIC - Eye Exam Eye Exam: EOMI, Normal appearance - ENT Exam ENT Exam: Mucous Membranes Moist - Neck Exam Neck Exam: absent: Tenderness - Respiratory Exam Respiratory Exam: Decreased Breath Sounds, Prolonged Expiratory Phase, Rhonchi, Wheezes. absent: Accessory Muscle Use - Cardiovascular Exam Cardiovascular Exam: RRR, +S1, +S2 - GI/Abdominal Exam GI & Abdominal Exam: Soft. absent: Tenderness - Rectal Exam Rectal Exam: Deferred - Extremities Exam Extremities Exam: absent: Calf Tenderness, Pedal Edema - Back Exam Back Exam: absent: CVA tenderness (L), CVA tenderness (R) - Neurological Exam Neurological Exam: Alert, Awake, CN II-XII Intact, Oriented x3 - Psychiatric Exam Psychiatric exam: Normal Affect, Normal Mood - Skin Skin Exam: absent: Rash Assessment and Plan (1) Hypertension Status: Acute (2) Diabetes mellitus Status: Acute (3) COPD exacerbation Status: Acute (4) Pulmonary nodule, left Status: Acute - Assessment and Plan (Free Text) Assessment: RESP STATUS IMPROVING,. CONT STEROIDS, TAPER TOLERATED. CONT NEB BD., MONITOR O2 SAT. FOLLOW PEAK FLOWS. CONT ADVAIR, SINGULAIR. CXR REVIEWED. AFEBRILE ON AB. INCREASE OOB. DISCUSSED WITH STAFF.
--- NOTE | 2017-03-01 11:37 | CP.PCM.PN ---
Subjective - Date & Time of Evaluation Date of Evaluation: 03/01/17 Time of Evaluation: 09:40 - Subjective Subjective: clinically same Objective - Vital Signs/Intake and Output Vital Signs (last 24 hours): Temp Pulse Resp BP Pulse Ox 98.2 F 85 20 130/77 93 L 03/01/17 07:54 03/01/17 07:54 03/01/17 07:54 03/01/17 07:54 03/01/17 07:54 Intake and Output: 03/01/17 03/01/17 06:59 18:59 Intake Total 480 Balance 480 - Medications Medications: Current Medications Albuterol/Ipratropium (Duoneb 3 Mg/0.5 Mg (3 Ml) Ud) 3 ml IH RQ4 [facility] Last Admin: 03/01/17 07:40 Dose: 3 ml Enoxaparin Sodium (Lovenox) 40 mg SC DAILY [facility] Last Admin: 03/01/17 09:37 Dose: 40 mg Guaifenesin (Robitussin) 100 mg PO Q4H PRN PRN Reason: Cough Last Admin: 03/01/17 06:01 Dose: 100 mg Azithromycin 500 mg/ Sodium (Chloride) 250 mls @ 250 mls/hr IVPB DAILY [facility] Last Admin: 03/01/17 09:36 Dose: 250 mls/hr Ceftriaxone Sodium 1 gm/ (Sodium Chloride) 100 mls @ 100 mls/hr IVPB DAILY [facility] Last Admin: 03/01/17 09:36 Dose: 100 mls/hr Insulin Human Regular (Novolin R) 0 unit SC ACHS [facility] PRN Reason: Protocol Last Admin: 03/01/17 09:37 Dose: Not Given Methylprednisolone (Solu-Medrol) 60 mg IV Q8 [facility] Last Admin: 03/01/17 05:54 Dose: 60 mg Montelukast Sodium (Singulair) 10 mg PO DAILY [facility] Last Admin: 03/01/17 09:37 Dose: 10 mg Pantoprazole Sodium (Protonix Ec Tab) 40 mg PO DAILY [facility] Fluticasone/Salmeterol (Advair Diskus 500/50) 1 puff IH RBID [facility] Last Admin: 03/01/17 08:06 Dose: 1 puff Sitagliptin Phosphate (Januvia) 50 mg PO DAILY [facility] Last Admin: 03/01/17 09:37 Dose: 50 mg - Labs Labs: 03/01/17 07:08 03/01/17 07:08 - Constitutional Appears: Well - Head Exam Head Exam: ATRAUMATIC, NORMAL INSPECTION, NORMOCEPHALIC - Eye Exam Eye Exam: EOMI, Normal appearance, PERRL Pupil Exam: NORMAL ACCOMODATION, PERRL - ENT Exam ENT Exam: Mucous Membranes Moist, Normal Exam - Neck Exam Neck Exam: Full ROM, Normal Inspection. absent: Lymphadenopathy - Respiratory Exam Respiratory Exam: Decreased Breath Sounds - Cardiovascular Exam Cardiovascular Exam: REGULAR RHYTHM, +S1, +S2 - GI/Abdominal Exam GI & Abdominal Exam: Soft, Diminished Bowel Sounds - Rectal Exam Rectal Exam: Deferred
[2017-03-01] MEDS: Pantoprazole 40 mg EC Tab PO SCH (12:01)
[2017-03-01] MEDS: MethylPREDNISolone 40 mg Vial IVP SCH (15:48)
[2017-03-02] MEDS: MethylPREDNISolone 40 mg Vial IVP SCH ×3 (00:08→15:35)
[2017-03-02] MEDS: guaiFENesin 100 mg/5 ml Syrup UD PO PRN (00:11)
[2017-03-02 00:51] VITALS: RESP 20
[2017-03-02] MEDS: Albuterol-Ipratrop 3 mg / 0.5 (3 ml) UD IH SCH ×3 (03:32→12:18)
[2017-03-02] MEDS: (Novolin R) Insulin Human Regular 100 units/ml vial SC SCH ×2 (07:30→12:00)
[2017-03-02] MEDS: Fluticasone-Salmeterol 500-50mcg Diskus IH SCH (08:11)
[2017-03-02 08:27] VITALS: PULSE 85; O2SAT 95
[2017-03-02 08:45] LABS: BASO % 0.2 % (0.0-2.0); HEMATOCRIT 45.7 % (34.0-47.0); LYMPH # 0.7 K/uL (1.0-4.3); LYMPH % 4.4 % (20.0-40.0); MEAN CORPUSCULAR HEMOGLOBIN 28.6 pg (27.0-31.0); MEAN CORPUSCULAR HGB CONC 32.5 g/dL (33.0-37.0); MEAN PLATELET VOLUME 9.7 fL (7.2-11.7); MONO # 0.7 K/uL (0.0-0.8); MONO % 4.7 % (0.0-10.0); NRBC % 0.2 % (0.0-2.0); PLATELET COUNT 607 K/uL (130-400); RED CELL DISTRIBUTION WIDTH 14.6 % (11.5-14.5); WHITE BLOOD COUNT 14.8 K/uL (4.8-10.8)
[2017-03-02 08:59] LABS: CHLORIDE 97 mmol/L (98-107); SODIUM 141 mmol/L (132-148)
[2017-03-02 09:01] LABS: GFR AFRICAN-AMERICAN > 60
[2017-03-02 09:02] LABS: ALB/GLOB RATIO 1.2 (1.0-2.1); ALKALINE PHOSPHATASE 70 U/L (38-126); ALT/SGPT 26 U/L (9-52); AST/SGOT 22 U/L (14-36); BILIRUBIN,TOTAL 0.4 mg/dL (0.2-1.3); BLOOD UREA NITROGEN 18 mg/dL (7-17); CALCIUM 9.3 mg/dl (8.6-10.4); CARBON DIOXIDE 31 mmol/L (22-30); GLUCOSE,RANDOM 111 mg/dL (65-105); TOTAL PROTEIN 7.3 g/dL (6.3-8.3)
[2017-03-02] MEDS: Pantoprazole 40 mg EC Tab PO SCH (09:04)
[2017-03-02] MEDS: Azithromycin 500 MG in Sodium Chloride 0.9% 250 ML IVPB SCH (09:04)
[2017-03-02] MEDS: Enoxaparin 40 mg Syringe SC SCH (09:08)
--- NOTE | 2017-03-02 09:53 | CP.PCM.PN ---
Subjective - Date & Time of Evaluation Date of Evaluation: 03/02/17 Time of Evaluation: 10:00 - Subjective Subjective: clinically same Objective - Vital Signs/Intake and Output Vital Signs (last 24 hours): Temp Pulse Resp BP Pulse Ox 98 F 85 20 156/96 H 95 03/02/17 08:26 03/02/17 08:26 03/02/17 08:26 03/02/17 08:26 03/02/17 08:26 - Medications Medications: Current Medications Albuterol/Ipratropium (Duoneb 3 Mg/0.5 Mg (3 Ml) Ud) 3 ml IH RQ4 [facility] Last Admin: 03/02/17 08:11 Dose: 3 ml Enoxaparin Sodium (Lovenox) 40 mg SC DAILY [facility] Last Admin: 03/02/17 09:08 Dose: 40 mg Guaifenesin (Robitussin) 100 mg PO Q4H PRN PRN Reason: Cough Last Admin: 03/02/17 00:11 Dose: 100 mg Azithromycin 500 mg/ Sodium (Chloride) 250 mls @ 250 mls/hr IVPB DAILY [facility] Last Admin: 03/02/17 09:04 Dose: 250 mls/hr Ceftriaxone Sodium 1 gm/ (Sodium Chloride) 100 mls @ 100 mls/hr IVPB DAILY [facility] Last Admin: 03/02/17 09:04 Dose: 100 mls/hr Insulin Human Regular (Novolin R) 0 unit SC ACHS [facility] PRN Reason: Protocol Last Admin: 03/02/17 07:30 Dose: Not Given Methylprednisolone (Solu-Medrol) 40 mg IVP Q8H [facility] Last Admin: 03/02/17 09:04 Dose: 40 mg Montelukast Sodium (Singulair) 10 mg PO DAILY [facility] Last Admin: 03/02/17 09:04 Dose: 10 mg Pantoprazole Sodium (Protonix Ec Tab) 40 mg PO DAILY [facility] Last Admin: 03/02/17 09:04 Dose: 40 mg Fluticasone/Salmeterol (Advair Diskus 500/50) 1 puff IH RBID [facility] Last Admin: 03/02/17 08:11 Dose: 1 puff Sitagliptin Phosphate (Januvia) 50 mg PO DAILY [facility] Last Admin: 03/02/17 09:04 Dose: 50 mg - Labs Labs: 03/02/17 08:28 03/02/17 08:28 - Constitutional Appears: Well - Head Exam Head Exam: ATRAUMATIC, NORMAL INSPECTION, NORMOCEPHALIC - Eye Exam Eye Exam: EOMI, Normal appearance, PERRL Pupil Exam: NORMAL ACCOMODATION, PERRL - ENT Exam ENT Exam: Mucous Membranes Moist, Normal Exam - Neck Exam Neck Exam: Full ROM, Normal Inspection. absent: Lymphadenopathy - Respiratory Exam Respiratory Exam: Decreased Breath Sounds - Cardiovascular Exam Cardiovascular Exam: REGULAR RHYTHM, +S1, +S2 - GI/Abdominal Exam GI & Abdominal Exam: Soft, Diminished Bowel Sounds - Rectal Exam Rectal Exam: Deferred
--- NOTE | 2017-03-02 10:53 | CP.PCM.PN ---
Subjective - Date & Time of Evaluation Date of Evaluation: 03/02/17 Time of Evaluation: 10:51 - Subjective Subjective: COVERING DR FIELDS; PT FEELS BETTER, OOB, LESS SOB. LESS COUGH., ROS; OTHERWISE NEG Objective - Vital Signs/Intake and Output Vital Signs (last 24 hours): Temp Pulse Resp BP Pulse Ox 98 F 85 20 156/96 H 95 03/02/17 08:26 03/02/17 08:26 03/02/17 08:26 03/02/17 08:26 03/02/17 08:26 - Medications Medications: Current Medications Albuterol/Ipratropium (Duoneb 3 Mg/0.5 Mg (3 Ml) Ud) 3 ml IH RQ4 [facility] Last Admin: 03/02/17 08:11 Dose: 3 ml Enoxaparin Sodium (Lovenox) 40 mg SC DAILY [facility] Last Admin: 03/02/17 09:08 Dose: 40 mg Guaifenesin (Robitussin) 100 mg PO Q4H PRN PRN Reason: Cough Last Admin: 03/02/17 00:11 Dose: 100 mg Azithromycin 500 mg/ Sodium (Chloride) 250 mls @ 250 mls/hr IVPB DAILY [facility] Last Admin: 03/02/17 09:04 Dose: 250 mls/hr Ceftriaxone Sodium 1 gm/ (Sodium Chloride) 100 mls @ 100 mls/hr IVPB DAILY [facility] Last Admin: 03/02/17 09:04 Dose: 100 mls/hr Insulin Human Regular (Novolin R) 0 unit SC ACHS [facility] PRN Reason: Protocol Last Admin: 03/02/17 07:30 Dose: Not Given Methylprednisolone (Solu-Medrol) 40 mg IVP Q8H [facility] Last Admin: 03/02/17 09:04 Dose: 40 mg Montelukast Sodium (Singulair) 10 mg PO DAILY [facility] Last Admin: 03/02/17 09:04 Dose: 10 mg Pantoprazole Sodium (Protonix Ec Tab) 40 mg PO DAILY [facility] Last Admin: 03/02/17 09:04 Dose: 40 mg Fluticasone/Salmeterol (Advair Diskus 500/50) 1 puff IH RBID [facility] Last Admin: 03/02/17 08:11 Dose: 1 puff Sitagliptin Phosphate (Januvia) 50 mg PO DAILY [facility] Last Admin: 03/02/17 09:04 Dose: 50 mg - Labs Labs: 03/02/17 08:28 03/02/17 08:28 - Constitutional Appears: No Acute Distress - Head Exam Head Exam: ATRAUMATIC, NORMOCEPHALIC - Eye Exam Eye Exam: EOMI, Normal appearance - ENT Exam ENT Exam: Mucous Membranes Moist - Neck Exam Neck Exam: Full ROM - Respiratory Exam Respiratory Exam: Prolonged Expiratory Phase, Wheezes. absent: Accessory Muscle Use, Chest Wall Tenderness - Cardiovascular Exam Cardiovascular Exam: RRR, +S1, +S2 - GI/Abdominal Exam GI & Abdominal Exam: Soft. absent: Tenderness - Extremities Exam Extremities Exam: absent: Calf Tenderness, Pedal Edema - Back Exam Back Exam: absent: CVA tenderness (L), CVA tenderness (R) - Neurological Exam Neurological Exam: Alert, Awake, CN II-XII Intact, Oriented x3 - Psychiatric Exam Psychiatric exam: Normal Affect - Skin Skin Exam: absent: Rash Assessment and Plan (1) Hypertension Status: Acute (2) Diabetes mellitus Status: Acute (3) COPD exacerbation Status: Acute (4) Pulmonary nodule, left Status: Acute - Assessment and Plan (Free Text) Assessment: RESP STATUS IMPROVING., CONT STEROID TAPER TOLERATED. CONT ADVAIR, SINGULAIR. , NEB BD., MONITOR O2 SAT. CXR REVIEWED., AFEBRILE ON AB. DISCUSSED WITH STAFF.
[2017-03-02 11:41] LABS: NEUTROPHIL 92 % (50-75); TOTAL CELLS COUNTED 100
[2017-03-02 11:45] LABS: GIANT PLATELETS PRESENT; LARGE PLATELETS PRESENT
[2017-03-02 15:17] VITALS: BP 149/91; TEMP 98.1
--- NOTE | 2017-03-11 20:33 | CARD ---
APPROVED REPORT EKG Measurement Heart [id number] <Conclusion> Normal sinus rhythm Possible Left atrial enlargement Left axis deviation Incomplete right bundle branch block Left ventricular hypertrophy Abnormal ECG
== END 2017-03-02 16:05 | disposition home or self-care (01) | DRG 191 ==
LOC: SUPCPDRO 00:35 → C.ER 00:35 → C.9E 03:17 → C.5T 08:01 → OBSVTOIN 02-28 16:08
PROVIDERS: ADMIT Internal Medicine Nephrology; ATTEND Internal Medicine Nephrology
DX: J44.1 Chronic obstructive pulmonary disease with (acute) exacerbation (principal); J45.901 Unspecified asthma with (acute) exacerbation; I10 Essential (primary) hypertension; R06.00 Dyspnea, unspecified; R91.1 Solitary pulmonary nodule; E11.9 Type 2 diabetes mellitus without complications; F17.210 Nicotine dependence, cigarettes, uncomplicated

== ENCOUNTER 2017-05-05 10:30 | Emergency (ER) | payer MEDICARE, MEDICAID ==
[2017-05-05 10:30] VITALS: BMI 25.1
[2017-05-05] MEDS ORDERED: Albuterol-Ipratrop 3 mg / 0.5 (3 ml) UD ONE ×3 (10:52→11:57)
[2017-05-05] MEDS ORDERED: Albuterol-Ipratrop 3 mg / 0.5 (3 ml) UD IH STA ×2 (11:10)
[2017-05-05] MEDS ORDERED: Sodium Chloride 0.9% 500 ML IV ONE (11:10)
--- NOTE | 2017-05-05 11:15 | C.PDOC ---
History Of Present Illness 71 yr old female with PMHx of COPD, presents to the ER for evaluation of chest tightness and asthma exacerbation gradually developing for the past few days. Patient states she has been using her nebulizer at home with no improvements. Reports of similar episode in the past, consistent with her asthma exacerbation sx. Otherwise, Patient denies recent illness, fever, chills, headache, dizziness , neck pain, drooling, dysphagia, chest pain, palpitation, diaphoresis, nausea, vomiting, abdominal pain, back pain, UTi sx, peripheral edema. Ambulate to ED, appears in mild resp. distress, use neb tx at present time. Time Seen by Provider: 05/05/17 10:54 Chief Complaint (Nursing): Shortness Of Breath History Per: Patient History/Exam Limitations: no limitations Onset/Duration Of Symptoms: Gradual Current Symptoms Are (Timing): Still Present Past Medical History Reviewed: Historical Data, Nursing Documentation, Vital Signs Vital Signs: Last Vital Signs Temp 98.6 F 05/05/17 13:00 Pulse 76 05/05/17 13:01 Resp 16 05/05/17 13:01 BP 137/60 05/05/17 13:01 Pulse Ox 93 L 05/05/17 14:32 - Medical History PMH: Arthritis, Asthma, COPD, Diabetes, HTN Family History: States: No Known Family Hx - Social History Hx Tobacco Use: Yes Hx Alcohol Use: No Hx Substance Use: No - Immunization History Hx Tetanus Toxoid Vaccination: No Hx Influenza Vaccination: No Hx Pneumococcal Vaccination: No Review Of Systems Except As Marked, All Systems Reviewed And Found Negative. Constitutional: Negative for: Fever Cardiovascular: Negative for: Chest Pain, Palpitations Respiratory: Positive for: Other ((+) Chest tightness. Asthma exacerbation.) Gastrointestinal: Negative for: Nausea, Vomiting, Abdominal Pain Neurological: Negative for: Weakness, Numbness, Headache Physical Exam - Physical Exam Appears: Non-toxic, No Acute Distress, Other (mild resp. distress.) Skin: Warm, Dry, No Rash Head: Normacephalic Ear(s): Bilateral: Normal Nose: No Flaring, No Discharge Oral Mucosa: Moist, No Drooling Throat: No Erythema, No Exudate, No Drooling Neck: Trachea Midline, Supple Chest: Symmetrical, No Tenderness Cardiovascular: Rhythm Regular, No Murmur, No JVD, Other ((-) carotid bruits B/L ) Respiratory: No Decreased Breath Sounds, Accessory Muscle Use, No Rales, No Rhonchi, No Stridor, Wheezing (Diffuse wheezing, bilateral.) Gastrointestinal/Abdominal: Soft, No Tenderness, No Distention, No Guarding Back: No CVA Tenderness Extremity: No Pedal Edema, No Deformity, No Swelling Neurological/Psych: Oriented x3, Normal Speech, Normal Motor, Normal Sensation, Normal Reflexes ED Course And Treatment - Laboratory Results Result Diagrams: 05/05/17 11:32 05/05/17 11:32 Lab Interpretation: No Acute Changes ECG: Interpreted By Me, Viewed By Me ECG Interpretation: No Changes From Prior Interpretation Of ECG: SR@69/min, LAD, incomplete RBBB, left AFB, no acute ST-T changes. Compare to previous study from 02/27/17 and appears similar without acute abnormalities. O2 Sat by Pulse Oximetry: 93 (RA) Pulse Ox Interpretation: Normal - Other Rad CXR X-Ray: Viewed By Me, Read By Radiologist Interpretation: HISTORY: SOB. COMPARISON: Comparison chest dated 02/27/2017. TECHNIQUE: Two-view chest. FINDINGS: LUNGS: Chronic appearing curvilinear atelectasis/ scarring changes seen in the upper lobes bilaterally right greater than left. . Changes are likely postinflammatory. Additionally, the interstitial markings are increased and coarsened with a few scattered peribronchial cuffing changes. Findings could represent sequela of reactive/ inflammatory airway disease or viral illness. PLEURA: No significant pleural effusion identified. No pneumothorax apparent. CARDIOVASCULAR: Heart size is upper limits of normal/borderline enlarged. OSSEOUS STRUCTURES: Mild multilevel degenerative spondylosis of the thoracic spine. VISUALIZED UPPER ABDOMEN: Normal. OTHER FINDINGS: None. IMPRESSION: Chronic appearing curvilinear atelectasis/ scarring changes seen in the upper lobes bilaterally right greater than left. . Changes are likely postinflammatory. Additionally, the interstitial markings are increased and coarsened with a few scattered peribronchial cuffing changes. Findings could represent sequela of reactive/ inflammatory airway disease or viral illness. Progress Note: At 13:10, pt reports moderate improvement in symptoms. Pt appears more comfortable, not in resp. distress. Pt sts, " fell much better" and wish to go home now. PEAK flow pre- 100 and post- 200. Pts ts, baseline for PEAK 350. Afebrile, hemodynamicaly stable. Non-toxic, not in resp. ditsress. PulsEOx 94% RA, apears low. Neck: Supple, (-) JVD, (-) carotid bruits. Lungs: mild improvement in exp. wheezing B/L, BS equal B/L. CVS: (+) S1S2, reg. Abd: benign. Neuorlogicaly intact. Blood work review and appears similar to previous visits. CXR: (-) infiltrates. Admission was offered to pt , refused " I feel much better". Risk vs benefits discussed with pt. Pt was given chance to ask questions and received complete explanation. Pt understands risk and agrees with AMA. Ptadvised return to ED at any time to complete treatment and further eval. Follow up with PMD in 1 days for re-eval. Against Medical Advice - AMA Patient Left Against Medical Advice: The patient declines admission to the hospital and wishes to leave the Emergency Department. This action is against my medical advice. This decision was made with informed refusal. The patient was told that admission to the hospital is necessary. Explanation of the reasons why were discussed. The risks of leaving were explained to the patient and include, but are not limited to, worsening of known or currently unknown conditions, permanent disability and from undiagnosed or untreated conditions. The patient has the capacity to make this informed decision and understands my explanation of the current medical problem and risks of leaving. The patient voluntarily accepts these risks and signed an AMA form documenting our conversation. The patient was given the opportunity to ask questions and reconsider. The patient was encouraged to return to the Emergency Department at any time for further care. Medical Decision Making Medical Decision Making: PLAN: * CXR * EKG * Troponin * CBC * CMP * Urinalysis * Duoneb IH * Solumedrol IVP * Magnesium Sulfate IV * Sodium Chloride IV Disposition - Disposition Referrals: Shaik Lynn MD [Staff Provider] - Disposition: AGAINST MEDICAL ADVICE Disposition Time: 13:09 Condition: STABLE Additional Instructions: TAKE MEDICATION PRESCRIBED NEBULIZER TREATMENT EVERY 4 HOURS ON CLOCK FOLLOW UP WITH PMD AND PULMONOLOGY IN 2-3 DAYS FOR RE-EVALUATION. RETURN TO ED IF ANY WORSENING OR NEW CHANGES. Prescriptions: Albuterol HFA [Ventolin HFA 90 mcg/actuation (8 g)] 1 puff IH Q6 #1 inhaler Albuterol/Ipratropium [Duoneb 3 MG/3 Ml-0.5 MG/3 Ml 3 Ml] 1 ea IH Q4 #100 neb Cefdinir [Omnicef] 300 mg PO BID #14 cap Prednisone [Deltasone] 60 mg PO DAILY #9 tablet Instructions: COPD (Chronic Obstructive Pulmonary Disease) (ED) Forms: [employer] ([place]) - Clinical Impression Clinical Impression: COPD exacerbation, Left against medical advice, Hypoxia - PA / WEB CONTENT EDITOR / Resident Statement MD/DO has reviewed & agrees with the documentation as recorded. - Scribe Statement The provider has reviewed the documentation as recorded by the Scribe Maylin Clancy All medical record entries made by the Aracelisibverona were at my direction and personally dictated by me. I have reviewed the chart and agree that the record accurately reflects my personal performance of the history, physical exam, medical decision making, and the department course for this patient. I have also personally directed, reviewed, and agree with the discharge instructions and disposition.
[2017-05-05] MEDS ORDERED: Magnesium Sulfate 1 gm in D5W 1 GM/100 ML BAG IVPB ONE (11:32)
[2017-05-05] MEDS ORDERED: Sodium Chloride 0.9% 1,000 ML ONE (11:32)
[2017-05-05 11:36] LABS: BASO % 0.6 % (0.0-2.0); EOS # 1.1 K/uL (0.0-0.7); EOS % 14.1 % (0.0-4.0); HEMATOCRIT 45.4 % (34.0-47.0); LYMPH # 1.5 K/uL (1.0-4.3); LYMPH % 18.3 % (20.0-40.0); MEAN CELL VOLUME 86.6 fL (81.0-99.0); MEAN CORPUSCULAR HEMOGLOBIN 28.6 pg (27.0-31.0); MEAN CORPUSCULAR HGB CONC 33.1 g/dL (33.0-37.0); MEAN PLATELET VOLUME 9.8 fL (7.2-11.7); MONO # 0.6 K/uL (0.0-0.8); NRBC % 0.1 % (0.0-2.0); RED CELL DISTRIBUTION WIDTH 15.4 % (11.5-14.5); WHITE BLOOD COUNT 8.1 K/uL (4.8-10.8)
--- NOTE | 2017-05-05 11:36 | RAD ---
HISTORY: SOB COMPARISON: Comparison chest dated 02/27/2017 TECHNIQUE: Two-view chest FINDINGS: LUNGS: Chronic appearing curvilinear atelectasis/ scarring changes seen in the upper lobes bilaterally right greater than left. . Changes are likely postinflammatory. Additionally, the interstitial markings are increased and coarsened with a few scattered peribronchial cuffing changes. Findings could represent sequela of reactive/inflammatory airway disease or viral illness. PLEURA: No significant pleural effusion identified. No pneumothorax apparent. CARDIOVASCULAR: Heart size is upper limits of normal/borderline enlarged OSSEOUS STRUCTURES: Mild multilevel degenerative spondylosis of the thoracic spine VISUALIZED UPPER ABDOMEN: Normal. OTHER FINDINGS: None. IMPRESSION: Chronic appearing curvilinear atelectasis/ scarring changes seen in the upper lobes bilaterally right greater than left. . Changes are likely postinflammatory. Additionally, the interstitial markings are increased and coarsened with a few scattered peribronchial cuffing changes. Findings could represent sequela of reactive/inflammatory airway disease or viral illness.
[2017-05-05 11:45] LABS: CHLORIDE 99 mmol/L (98-107)
[2017-05-05 11:46] LABS: POTASSIUM 4.1 mmol/L (3.6-5.2); SODIUM 138 mmol/L (132-148)
[2017-05-05 11:48] LABS: ALB/GLOB RATIO 1.3 (1.0-2.1); AST/SGOT 21 U/L (14-36); BILIRUBIN,TOTAL 0.7 mg/dL (0.2-1.3); BLOOD UREA NITROGEN 12 mg/dL (7-17); CARBON DIOXIDE 31 mmol/L (22-30); GFR AFRICAN-AMERICAN > 60; TOTAL PROTEIN 7.3 g/dL (6.3-8.3)
[2017-05-05 11:49] LABS: ALKALINE PHOSPHATASE 55 U/L (38-126); ALT/SGPT 27 U/L (9-52); CALCIUM 8.7 mg/dl (8.6-10.4); GLUCOSE,RANDOM 81 mg/dL (65-105)
[2017-05-05] MEDS ORDERED: Magnesium Sulfate 1 gm in D5W 1 GM/100 ML BAG IV ONE (12:00)
[2017-05-05 12:39] LABS: URINE BILIRUBIN NEGATIVE (NEGATIVE); URINE BLOOD NEGATIVE (NEGATIVE); URINE COLOR Colorless (YELLOW); URINE GLUCOSE (UA) NORMAL (Normal); URINE KETONE NEGATIVE (NEGATIVE); URINE LEUKOCYTE ESTERASE NEG Leu/uL (Negative); URINE PROTEIN NEGATIVE (NEGATIVE); URINE UROBILINOGEN NORMAL mg/dL (0.2-1.0); WBC URINE < 1 /hpf (0-5)
[2017-05-05 13:01] VITALS: PULSE 76
[2017-05-05] MEDS ORDERED: Azithromycin 500mg/250ML NS 500 MG/250 ML BAG IVPB STA (13:10)
[2017-05-05 13:13] VITALS: O2SAT 93
[2017-05-05] MEDS ORDERED: cefTRIAXone IV 1 gm in Dextros 50 ML IVPB ONE (13:16)
[2017-05-05] MEDS ORDERED: Azithromycin 500mg/250ML NS 500 MG/250 ML BAG IVPB ONE (13:34)
[2017-05-05 15:53] VITALS: BP 120/64; RESP 18; TEMP 98.9
--- NOTE | 2017-05-06 13:15 | CARD ---
APPROVED REPORT EKG Measurement Heart [id number] FL [id number] <Conclusion> Normal sinus rhythm Possible Left atrial enlargement Incomplete right bundle branch block Left anterior fascicular block Left ventricular hypertrophy Abnormal ECG
== END 2017-05-05 15:45 | disposition left against medical advice (07) ==
LOC: C.ER 10:30
DX: J44.1 Chronic obstructive pulmonary disease with (acute) exacerbation (principal); R09.02 Hypoxemia
CPT/HCPCS: 71020; 80053; 81001; 83880; 84484; 85025; 85610; 85730; 87086; 93005; 96365; 96367; 96375; 99285; J0456; J0696; J2930; J3475; J7040

== ENCOUNTER 2017-06-15 02:05 | Observation (INO) | payer MEDICARE, MEDICAID ==
[2017-06-15 02:05] VITALS: BMI 25.1
[2017-06-15] MEDS ORDERED: Albuterol-Ipratrop 3 mg / 0.5 (3 ml) UD ONE (02:13)
[2017-06-15] MEDS ORDERED: Albuterol-Ipratrop 3 mg / 0.5 (3 ml) UD INH STA ×3 (03:04→07:03)
--- NOTE | 2017-06-15 04:05 | C.PDOC ---
History Of Present Illness 71 year old female with a Hx of asthma, COPD, oxygen dependent at home, presents to the ER with a complaint of SOB and wheezing upon waking up tonight. Patient states she took nebulizer treatments at home with no improvement to symptoms which prompted visit. Denies chest pain, nausea, or vomiting. Time Seen by Provider: 06/15/17 02:58 Chief Complaint (Nursing): Respiratory Distress History Per: Patient History/Exam Limitations: no limitations Onset/Duration Of Symptoms: Hrs Current Symptoms Are (Timing): Still Present Initiating Event: Other (Not known) Associated Symptoms: denies: Fever, Chills, Chest Pain Recent travel outside of the [place]: No Past Medical History Reviewed: Historical Data, Nursing Documentation, Vital Signs Vital Signs: Last Vital Signs Temp 99.1 F 06/15/17 16:00 Pulse 95 H 06/15/17 16:00 Resp 20 06/15/17 16:00 BP 119/72 06/15/17 16:00 Pulse Ox 94 L 06/15/17 18:43 - Medical History PMH: Arthritis, Asthma, COPD, Diabetes, HTN Family History: States: Unknown Family Hx - Social History Hx Tobacco Use: Yes (Last use 3 days ago) Hx Alcohol Use: No Hx Substance Use: No - Immunization History Hx Tetanus Toxoid Vaccination: No Hx Influenza Vaccination: No Hx Pneumococcal Vaccination: No Review Of Systems Constitutional: Negative for: Fever, Chills Cardiovascular: Negative for: Chest Pain, Palpitations Respiratory: Positive for: Shortness of Breath, Wheezing Gastrointestinal: Negative for: Nausea, Vomiting Physical Exam - Physical Exam Appears: Non-toxic, No Acute Distress, Other (Sleeping) Skin: Normal Color, Warm, Dry Head: Atraumatic, Normacephalic Oral Mucosa: Moist Chest: Symmetrical, No Tenderness Cardiovascular: Rhythm Regular Respiratory: No Accessory Muscle Use, No Rales, No Rhonchi, Wheezing (scattered expiratory wheezing (examined after first nebulizer treatment)) Gastrointestinal/Abdominal: Soft, No Tenderness Extremity: No Pedal Edema Neurological/Psych: Oriented x3, Normal Speech, Other (No focal deficits) ED Course And Treatment - Laboratory Results Result Diagrams: 06/15/17 08:51 06/15/17 08:53 O2 Sat by Pulse Oximetry: 94 (Room air) Pulse Ox Interpretation: Normal Medical Decision Making Medical Decision Making: Duoneb and prednisone administered. pt was feeling better after first neb with decreased wheezing. second neb ordered. 650 am: pt resting, appears comfortable,however has diffuse wheezing and o2 sat dec to 93 on 2 liters. pt to be admitted to Dr Rojo, discussed with him. Disposition Discussed With .: Tootie Rojo Doctor Will See Patient In The: Hospital - Disposition Disposition: HOSPITALIZED Disposition Time: 07:05 Condition: STABLE - Clinical Impression Clinical Impression: Exacerbation of asthma - Scribe Statement The provider has reviewed the documentation as recorded by the Scribverona Flores All medical record entries made by the Aracelisibverona were at my direction and personally dictated by me. I have reviewed the chart and agree that the record accurately reflects my personal performance of the history, physical exam, medical decision making, and the department course for this patient. I have also personally directed, reviewed, and agree with the discharge instructions and disposition.
[2017-06-15] MEDS ORDERED: MethylPREDNISolone 40 mg Vial IVP STA (08:47)
[2017-06-15 08:50] LABS: BASO % 0.3 % (0.0-2.0); EOS % 0.2 % (0.0-4.0); HEMOGLOBIN 14.4 g/dL (11.0-16.0); LYMPH # 0.6 K/uL (1.0-4.3); LYMPH % 6.7 % (20.0-40.0); MEAN CELL VOLUME 85.9 fL (81.0-99.0); MEAN CORPUSCULAR HEMOGLOBIN 28.8 pg (27.0-31.0); MEAN CORPUSCULAR HGB CONC 33.5 g/dL (33.0-37.0); MEAN PLATELET VOLUME 9.5 fL (7.2-11.7); MONO # 0.1 K/uL (0.0-0.8); MONO % 1.2 % (0.0-10.0); NEUT # 8.1 K/uL (1.8-7.0); NEUT % 91.6 % (50.0-75.0); PLATELET COUNT 718 K/uL (130-400); RBC 5.01 Mil/uL (3.80-5.20); RED CELL DISTRIBUTION WIDTH 16.8 % (11.5-14.5); WHITE BLOOD COUNT 8.9 K/uL (4.8-10.8)
[2017-06-15 09:03] LABS: BLOOD UREA NITROGEN 15 mg/dL (7-17); CALCIUM 8.4 mg/dl (8.6-10.4); GFR AFRICAN-AMERICAN > 60; GFR NON-AFRICAN AMERICAN > 60
[2017-06-15 09:24] LABS: BANDS 1 % (0-2); LYMPHOCYTE 2 % (20-40); MONOCYTE 1 % (0-10); NEUTROPHIL 96 % (50-75); PLATELET ESTIMATE INCREASED (NORMAL); TOTAL CELLS COUNTED 100
[2017-06-15 09:25] LABS: ANISOCYTOSIS SLIGHT; LARGE PLATELETS PRESENT
[2017-06-15 09:26] LABS: GIANT PLATELETS PRESENT
[2017-06-15 09:27] LABS: HYPOCHROMIC SLIGHT; POLYCHROMIC SLIGHT
[2017-06-15] MEDS: Enoxaparin 40 mg Syringe SC SCH (10:15)
[2017-06-15 12:03] VITALS: RESP 20
[2017-06-15] MEDS ORDERED: Influenza Vaccine 60 mcg/0.5 mL SYR (4YR UP) IM ONE (12:15)
[2017-06-15] MEDS: (Novolog) Insulin Aspart, Recombinant 100 u/ml 10 ml vial SC SCH ×3 (12:30→22:11)
[2017-06-15] MEDS: Albuterol-Ipratrop 3 mg / 0.5 (3 ml) UD INH SCH ×3 (14:00→19:44)
--- NOTE | 2017-06-15 19:07 | RAD ---
HISTORY: asthma COMPARISON: Comparison made with chest radiograph and CT scan chest 05/12/2017 and 05/14/2017 respectively. TECHNIQUE: Chest PA and lateral FINDINGS: LUNGS: Chronic areas of atelectasis/ scarring and bronchiectasis with upper lobe predominance less well seen on this study as compared to high-resolution CT chest. There may also be some mild bibasilar atelectasis as well. PLEURA: No significant pleural effusion identified. No pneumothorax apparent. CARDIOVASCULAR: Normal. OSSEOUS STRUCTURES: No significant abnormalities. VISUALIZED UPPER ABDOMEN: Normal. OTHER FINDINGS: None. IMPRESSION: Chronic areas of atelectasis/ scarring and bronchiectasis with upper lobe predominance less well seen on this study as compared to high-resolution CT chest. There may also be some mild bibasilar atelectasis as well.
[2017-06-15] MEDS ORDERED: (Novolog) Insulin Aspart, Recombinant 100 u/ml 10 ml vial SC SCH (22:00)
[2017-06-16] MEDS: Albuterol-Ipratrop 3 mg / 0.5 (3 ml) UD INH SCH ×5 (00:29→16:14)
--- NOTE | 2017-06-16 00:51 | HP ---
HISTORY OF PRESENT ILLNESS: The patient is a 71-year-old female admitted to the hospital with complaint of weakness, fatigue, tiredness, shortness of breath, and cough. The patient has COPD, smoker. Prescribed Ventolin inhaler, nebulizer. PHYSICAL EXAMINATION: GENERAL: The patient is awake, alert, and oriented. VITAL SIGNS: Temperature 98, pulse 90. HEENT: Within normal limits. NECK: Soft and supple. but wheezes. HEART: Regular. ABDOMEN: Soft. EXTREMITIES: No edema. IMPRESSION: The patient has exacerbation of chronic obstructive pulmonary disease and bronchitis. PLAN: The patient is on bedrest, supportive care, bronchodilators. Tootie Rojo MD
[2017-06-16] MEDS: (Novolog) Insulin Aspart, Recombinant 100 u/ml 10 ml vial SC SCH ×2 (08:05→12:34)
[2017-06-16] MEDS: Enoxaparin 40 mg Syringe SC SCH (10:35)
[2017-06-16 12:07] LABS: BASO # 0.1 K/uL (0.0-0.2); BASO % 0.7 % (0.0-2.0); EOS # 0.2 K/uL (0.0-0.7); EOS % 1.8 % (0.0-4.0); HEMOGLOBIN 13.9 g/dL (11.0-16.0); LYMPH # 2.4 K/uL (1.0-4.3); LYMPH % 22.1 % (20.0-40.0); MEAN CORPUSCULAR HEMOGLOBIN 28.1 pg (27.0-31.0); MEAN CORPUSCULAR HGB CONC 32.6 g/dL (33.0-37.0); MEAN PLATELET VOLUME 9.8 fL (7.2-11.7); MONO # 0.9 K/uL (0.0-0.8); MONO % 7.8 % (0.0-10.0); NEUT # 7.4 K/uL (1.8-7.0); NEUT % 67.6 % (50.0-75.0); RBC 4.96 Mil/uL (3.80-5.20); RED CELL DISTRIBUTION WIDTH 16.5 % (11.5-14.5)
[2017-06-16 13:14] LABS: ALB/GLOB RATIO 1.5 (1.0-2.1); ALBUMIN 4.1 g/dL (3.5-5.0); ALT/SGPT 24 U/L (9-52); AST/SGOT 23 U/L (14-36); BLOOD UREA NITROGEN 22 mg/dL (7-17); CALCIUM 8.3 mg/dl (8.6-10.4); GFR AFRICAN-AMERICAN > 60; GFR NON-AFRICAN AMERICAN > 60; MAGNESIUM 1.5 mg/dL (1.6-2.3)
[2017-06-16] MEDS ORDERED: Potassium Chloride 20 mEq/15 ml LIQ UD PO ONE (15:07)
[2017-06-16 16:16] VITALS: BP 147/82; PULSE 93; TEMP 97.9; O2SAT 95
--- NOTE | 2017-06-16 17:53 | CP.PCM.PN ---
Subjective - Date & Time of Evaluation Date of Evaluation: 06/16/17 Time of Evaluation: 08:05 - Subjective Subjective: PGY2 Resident - Medicine Progress Note This 71 year old female with PMHx of asthma, COPD, oxygen dependent at home - presents to the ED c/o SOB and wheezing since last night. Patient states she took nebulizer treatments at home with no improvement to symptoms which prompted her visit. At the time of admission, she denied chest pain, nausea, or vomiting. In the ED, she found relief with nebulizer treatment, however her O2 saturation remained at 93% on 2L NC. PMHx: Arthritis, Asthma, COPD, Diabetes, HTN Allergies moxifloxacin, azithromycin Meds: see EMR FamHx: denies Social: denies ETOH or illicit drug use. admits to smoking for many years ( states several cigarets per day). Patient seen and examined at bedside. No acute distress. No overnight events. Patient reports she is feeling better after treatment, is less SOB, and would like to go home. She denies fever, chills, headache, changes in vision, chest pain, palpitations, cough, abdominal pain, nausea/vomiting, diarrhea/ constipation, or any additional acute complaints. Patient is stable for discharge per Dr. Jessica Rojo. Patient should resume all medications as outlined in this document. Additionally, patient should take the new medications listed below (scripts provided). 1. Please make an appointment and follow up with your Primary Doctor within one week of discharge. Patient should return to ED immediately if symptoms return or worsen. Instructions discussed with patient who understood and agreed. Newly prescribed medications: Breo 200-25mcg INH daily #1 Medrol dose pack 4mg #1 - follow package instructions Spiriva 18mcg IH daily #1 Objective - Vital Signs/Intake and Output Vital Signs (last 24 hours): Temp Pulse Resp BP Pulse Ox 97.9 F 93 H 20 147/82 95 06/16/17 16:00 06/16/17 16:00 06/16/17 16:00 06/16/17 16:00 06/16/17 16:00 Intake and Output: 06/16/17 06/16/17 06:59 18:59 Intake Total 480 480 Balance 480 480 - Labs Labs: 06/16/17:48 06/16/17 11:48 - Constitutional Appears: Non-toxic, No Acute Distress - Head Exam Head Exam: ATRAUMATIC, NORMAL INSPECTION - Eye Exam Eye Exam: EOMI, Normal appearance, PERRL Pupil Exam: NORMAL ACCOMODATION - ENT Exam ENT Exam: Mucous Membranes Dry, Normal External Ear Exam, Normal Oropharynx - Neck Exam Neck Exam: absent: Lymphadenopathy - Respiratory Exam Respiratory Exam: Decreased Breath Sounds, Wheezes, NORMAL BREATHING PATTERN. absent: Rales, Rhonchi - Cardiovascular Exam Cardiovascular Exam: REGULAR RHYTHM, +S1, +S2 - GI/Abdominal Exam GI & Abdominal Exam: Soft, Normal Bowel Sounds. absent: Tenderness - Extremities Exam Extremities Exam: Full ROM, Normal Capillary Refill. absent: Pedal Edema, Tenderness - Back Exam Back Exam: NORMAL INSPECTION. absent: CVA tenderness (L), CVA tenderness (R) - Neurological Exam Neurological Exam: Alert, Awake, Oriented x3 - Psychiatric Exam Psychiatric exam: Normal Affect, Normal Mood - Skin Skin Exam: Dry, Intact, Normal Color, Warm Assessment and Plan - Assessment and Plan (Free Text) Assessment: Asthma/COPD exacberation -CXR 06/15/17 - Chronic areas of atelectasis/ scarring and bronchiectasis with upper lobe predominance less well seen on this study as compared to high- resolution CT chest. There may also be some mild bibasilar atelectasis as well. -duoneb 3mL INH RQ4 LINDA -Singulair 10mg PO HS LINDA -Prednisone 60mg PO STAT -Solumedrol 40mg IVP BID STAT HTN Controlled without meds Monitor DM Novolog sliding scale Januvia 50mg PO daily Prophylaxis Lovenox 40mg SC daily SCDs
[2017-06-17] MEDS ORDERED: Influenza Vaccine 60 mcg/0.5 mL SYR (4YR UP) IM ONE (10:00)
== END 2017-06-16 16:10 | disposition home or self-care (01) ==
LOC: C.ER 02:05 → C.9E 07:04 → C.6T 10:03 → C.9E 10:38 → C.6T 10:50
PROVIDERS: ADMIT Internal Medicine Pulmonary Disease; ATTEND Internal Medicine Pulmonary Disease
DX: J45.901 Unspecified asthma with (acute) exacerbation (principal); E11.9 Type 2 diabetes mellitus without complications; F17.200 Nicotine dependence, unspecified, uncomplicated; I10 Essential (primary) hypertension; Z79.84 Long term (current) use of oral hypoglycemic drugs; Z99.81 Dependence on supplemental oxygen

== ENCOUNTER 2017-06-17 04:24 | Inpatient (IN) | payer MEDICARE, MEDICAID ==
[2017-06-17 04:24] VITALS: BMI 25.1
--- NOTE | 2017-06-17 04:38 | C.PDOC ---
History Of Present Illness Patient presents to the ED via EMS with complaints of shortness of breath. Patient was seen in ED and discharged yesterday for similar complaints. Patient was given Nebulizer treatment en route to ED with improvement of symptoms. Patient denies fever, chills, nausea, or vomiting. Time Seen by Provider: 06/17/17 04:37 Chief Complaint (Nursing): Respiratory Distress History Per: Patient History/Exam Limitations: no limitations Onset/Duration Of Symptoms: Hrs Current Symptoms Are (Timing): Still Present Current Respiratory Medications: Albuterol Associated Symptoms: denies: Fever, Chills Reports Recently: Seen In ED, Treated By A Physician, Hospitalized Recent travel outside of the [place]: No Additional History Per: Prior Records Past Medical History Reviewed: Historical Data, Nursing Documentation, Vital Signs Vital Signs: Last Vital Signs Temp 98.3 F 06/17/17 04:33 Pulse 94 H 06/17/17 04:33 Resp 22 06/17/17 04:33 BP 152/84 H 06/17/17 04:33 Pulse Ox 99 06/17/17 05:10 - Medical History PMH: Arthritis, Asthma, COPD, Diabetes, HTN Denies: Chronic Kidney Disease Family History: States: No Known Family Hx - Social History Hx Tobacco Use: Yes (Last use 3 days ago) Hx Alcohol Use: No Hx Substance Use: No - Immunization History Hx Tetanus Toxoid Vaccination: No Hx Influenza Vaccination: No Hx Pneumococcal Vaccination: Yes Review Of Systems Constitutional: Negative for: Fever, Chills Cardiovascular: Negative for: Chest Pain, Palpitations Respiratory: Positive for: Shortness of Breath. Negative for: Cough Gastrointestinal: Negative for: Nausea, Vomiting, Abdominal Pain, Diarrhea Physical Exam - Physical Exam Appears: Non-toxic, In Acute Distress (mild respiratory distress, was originally in severe respiratory distress ) Skin: Warm, Dry, No Rash Head: Atraumatic, Normacephalic, No Tenderness Oral Mucosa: Moist Neck: Supple Chest: Symmetrical, No Deformity Cardiovascular: Rhythm Regular, No Murmur Respiratory: Decreased Breath Sounds, Wheezing (bilaterally ) Gastrointestinal/Abdominal: Soft, No Tenderness, No Distention, No Guarding, No Rebound Extremity: Normal ROM, No Tenderness Neurological/Psych: Oriented x3 ED Course And Treatment - Laboratory Results Result Diagrams: 06/17/17 04:47 06/17/17 04:47 ECG: Interpreted By Me, Viewed By Me ECG Rhythm: Sinus Rhythm (97), R BBB, Nonspecific Changes O2 Sat by Pulse Oximetry: 99 (RA) Pulse Ox Interpretation: Normal Progress Note: ABG, Chest CT, EKG, blood work and labs were ordered. Patient was given Albuterol and Solu-Medrol. Critical Care Time - Critical Care Note Total Time (in mins): 30 Documented critical care: time excludes all time spent performing seperately billable procedures. Disposition Discussed With Dr.: Ja Contreras Comment: accepted the pt on his service and took over the care at 6:30 AM Doctor Will See Patient In The: Hospital Counseled Patient/Family Regarding: Studies Performed, Diagnosis - Disposition Disposition: HOSPITALIZED Disposition Time: 04:38 Condition: FAIR Forms: [employer] ([place]ian) - POA Present On Arrival: None - Clinical Impression Clinical Impression: Acute asthma exacerbation, Dyspnea - PA / SURVEILLANCE MONITOR / Resident Statement MD/DO has reviewed & agrees with the documentation as recorded. - Scribe Statement The provider has reviewed the documentation as recorded by the Scribe Catalina Garcia All medical record entries made by the Scribe were at my direction and personally dictated by me. I have reviewed the chart and agree that the record accurately reflects my personal performance of the history, physical exam, medical decision making, and the department course for this patient. I have also personally directed, reviewed, and agree with the discharge instructions and disposition. Decision To Admit - Pt Status Changed To: Hospital Disposition Of: Inpatient - Admit Certification Admit to Inpatient:: After my assessment, the patient will require hospitalization for at least two midnights. This is because of the severity of symptoms shown, intensity of services needed, and/or the medical risk in this patient being treated as an outpatient. - InPatient: Physician Admission Certification: I certify that this patient requires 2 or more midnights of care for the following reason:: After my assessment, the patient will require hospitalization for at least two midnights. This is because of the severity of symptoms shown, intensity of services needed, and/or the medical risk in this patient being treated as an outpatient. - . Bed Request Type: Regular Admitting Physician: Ja Contreras Patient Diagnosis: Acute asthma exacerbation, Dyspnea
[2017-06-17] MEDS ORDERED: Albuterol-Ipratrop 3 mg / 0.5 (3 ml) UD IH SCH (04:45)
[2017-06-17 04:53] LABS: BASO # 0.1 K/uL (0.0-0.2); BASO % 0.9 % (0.0-2.0); EOS # 0.7 K/uL (0.0-0.7); EOS % 6.5 % (0.0-4.0); HEMATOCRIT 43.8 % (34.0-47.0); LYMPH # 2.7 K/uL (1.0-4.3); LYMPH % 26.4 % (20.0-40.0); MEAN CELL VOLUME 85.5 fL (81.0-99.0); MEAN CORPUSCULAR HEMOGLOBIN 27.5 pg (27.0-31.0); MEAN CORPUSCULAR HGB CONC 32.2 g/dL (33.0-37.0); MEAN PLATELET VOLUME 9.3 fL (7.2-11.7); MONO # 0.8 K/uL (0.0-0.8); MONO % 8.2 % (0.0-10.0); NRBC % 0.1 % (0.0-2.0); RED CELL DISTRIBUTION WIDTH 16.8 % (11.5-14.5); WHITE BLOOD COUNT 10.2 K/uL (4.8-10.8)
[2017-06-17 05:00] LABS: INR 0.9
[2017-06-17 05:01] LABS: ABG ALLEN TEST POS; DRAW SITE RR
[2017-06-17 05:12] LABS: ALB/GLOB RATIO 1.7 (1.0-2.1); ALKALINE PHOSPHATASE 58 U/L (38-126); ALT/SGPT 33 U/L (9-52); AST/SGOT 21 U/L (14-36); BILIRUBIN,TOTAL 0.8 mg/dL (0.2-1.3); BLOOD UREA NITROGEN 16 mg/dL (7-17); CARBON DIOXIDE 27 mmol/L (22-30); CHLORIDE 101 mmol/L (98-107); GFR AFRICAN-AMERICAN > 60; GLUCOSE,RANDOM 79 mg/dL (65-105); POTASSIUM 3.8 mmol/L (3.6-5.2); SODIUM 138 mmol/L (132-148); TOTAL PROTEIN 6.3 g/dL (6.3-8.3)
[2017-06-17] MEDS ORDERED: Albuterol-Ipratrop 3 mg / 0.5 (3 ml) UD INH SCH ×2 (08:00→12:00)
[2017-06-17] MEDS ORDERED: Azithromycin 500mg/250ML NS 250 ML IVPB SCH (08:15)
[2017-06-17 08:24] VITALS: RESP 20
[2017-06-17] MEDS: MethylPREDNISolone 40 mg Vial IVP SCH ×3 (09:15→17:28)
[2017-06-17] MEDS ORDERED: cefTRIAXone IV 1 gm in Dextros 50 ML IVPB SCH (10:00)
[2017-06-17] MEDS: Albuterol-Ipratrop 3 mg / 0.5 (3 ml) UD INH SCH ×5 (12:43→23:48)
[2017-06-17] MEDS: Tiotropium 18 mcg Cap For Inhalation IH SCH (12:45)
[2017-06-17] MEDS ORDERED: MethylPREDNISolone 40 mg Vial IVP SCH (14:15)
--- NOTE | 2017-06-17 16:08 | CP.PCM.HP ---
History of Present Illness - History of Present Illness History of Present Illness: 71-year-old female with PMHarthritis, eczema, COPD, DM, HTN presents to the ER for evaluation of shortness of breath. C/Oshortness of breath for the last few hours. Acute in onset, progressive, occurs at rest, NYHA grade 4, not relieved by any bronchodilators or medications. Patient states that she was seen in the ER yesterday for similar complaints and was discharged. No C/[place]chest pain, fever, chills, nausea, vomiting, palpitations. Present on Admission - Present on Admission Any Indicators Present on Admission: No Past Patient History - Infectious Disease Hx of Infectious Diseases: None - Past Medical History & Family History Past Medical History?: Yes - Past Social History Smoking Status: Former Smoker - CARDIAC Hx Hypertension: Yes - PULMONARY Hx Asthma: Yes Hx Chronic Obstructive Pulmonary Disease (COPD): Yes - NEUROLOGICAL Hx Neurological Disorder: No - HEENT Hx HEENT Problems: Yes Other/Comment: USES GLASSES - RENAL Hx Chronic Kidney Disease: No - ENDOCRINE/METABOLIC Hx Endocrine Disorders: Yes Hx Diabetes Mellitus Type 2: Yes - HEMATOLOGICAL/ONCOLOGICAL Hx Blood Disorders: No - INTEGUMENTARY Hx Dermatological Problems: No - MUSCULOSKELETAL/RHEUMATOLOGICAL Hx Arthritis: Yes Hx Falls: Yes - GASTROINTESTINAL Hx Gastrointestinal Disorders: No - GENITOURINARY/GYNECOLOGICAL Hx Genitourinary Disorders: No - PSYCHIATRIC Hx Substance Use: No - SURGICAL HISTORY Hx Surgeries: Yes Hx Cardiac Catheterization: Yes (2015) - ANESTHESIA Hx Anesthesia: Yes Hx Anesthesia Reactions: No Hx Malignant Hyperthermia: No Meds Home Medications: Home Medication List Medication Instructions Recorded Confirmed Type Amoxicillin/Clavulanate [Augmentin 1 tab PO BID #14 tab 06/19/17 Rx 875 MG-125 MG] Prednisone [Deltasone] 20 mg PO DAILY #14 tablet 06/19/17 Rx Allergies/Adverse Reactions: Allergies Allergy/AdvReac Type Severity Reaction Status Date / Time moxifloxacin HCl Allergy Intermediate RASH Verified 06/17/17 04:31 [From Avelox] azithromycin AdvReac ITCHING Verified 06/17/17 04:31 Physical Exam - Constitutional Appears: Well - Head Exam Head Exam: ATRAUMATIC, NORMAL INSPECTION, NORMOCEPHALIC - Eye Exam Eye Exam: EOMI, Normal appearance, PERRL Pupil Exam: NORMAL ACCOMODATION, PERRL - ENT Exam ENT Exam: Mucous Membranes Moist, Normal Exam - Neck Exam Neck exam: Positive for: Normal Inspection - Respiratory Exam Respiratory Exam: Decreased Breath Sounds - Cardiovascular Exam Cardiovascular Exam: REGULAR RHYTHM, +S1, +S2 - GI/Abdominal Exam GI & Abdominal Exam: Diminished Bowel Sounds, Soft - Rectal Exam Rectal Exam: Deferred Results - Vital Signs Recent Vital Signs: Last Vital Signs Temp 98.2 F 06/17/17 08:23 Pulse 92 H 06/17/17 12:45 Resp 20 06/17/17 08:23 BP 138/79 06/17/17 08:23 Pulse Ox 95 06/17/17 08:23 - Labs Result Diagrams: 06/19/17 08:02 06/19/17 08:02 Labs: Laboratory Results - last 24 hr 06/17/17 06/17/17 06/17/17 04:47 04:47 04:47 WBC 10.2 RBC 5.13 Hgb 14.1 Hct 43.8 MCV 85.5 MCH 27.5 MCHC 32.2 L RDW 16.8 H Plt Count 724 H MPV 9.3 Neut % (Auto) 58.0 Lymph % (Auto) 26.4 [place] % (Auto) 8.2 Eos % (Auto) 6.5 H Baso % (Auto) 0.9 Neut # 5.9 Lymph # 2.7 [place] # 0.8 Eos # 0.7 Baso # 0.1 PT 10.4 INR 0.9 APTT 30 Puncture Site pCO2 pO2 HCO3 ABG pH ABG Total CO2 ABG O2 Saturation ABG Base Excess Reji Test ABG Potassium A-a O2 Difference Respiratory Index Glucose Lactate FiO2 Sodium 138 Potassium 3.8 Chloride 101 Carbon Dioxide 27 Anion Gap 14 BUN 16 Creatinine 0.6 L Est GFR ( Amer) > 60 Est GFR (Non-Af Amer) > 60 Random Glucose 79 Calcium 8.0 L Total Bilirubin 0.8 AST 21 ALT 33 Alkaline Phosphatase 58 NT-Pro-B Natriuret Pep 201 Total Protein 6.3 Albumin 4.0 Globulin 2.4 Albumin/Globulin Ratio 1.7 Arterial Blood Potassium 06/17/17 04:55 WBC RBC Hgb Hct MCV MCH MCHC RDW Plt Count MPV Neut % (Auto) Lymph % (Auto) [place] % (Auto) Eos % (Auto) Baso % (Auto) Neut # Lymph # [place] # Eos # Baso # PT INR APTT Puncture Site Rr pCO2 49 H pO2 65 L HCO3 27.7 ABG pH 7.39 ABG Total CO2 31.2 H ABG O2 Saturation 96.8 ABG Base Excess 3.7 H Reji Test Pos ABG Potassium 3.3 L A-a O2 Difference 123.0 Respiratory Index 1.9 Glucose 92 Lactate 1.1 FiO2 35.0 Sodium 141.0 Potassium Chloride 110.0 H Carbon Dioxide Anion Gap BUN Creatinine Est GFR ( Amer) Est GFR (Non-Af Amer) Random Glucose Calcium Total Bilirubin AST ALT Alkaline Phosphatase NT-Pro-B Natriuret Pep Total Protein Albumin Globulin Albumin/Globulin Ratio Arterial Blood Potassium 3.3 L
--- NOTE | 2017-06-17 17:14 | CP.PCM.CON ---
History of Present Illness - History of Present Illness History of Present Illness: Reason for consultation: Asthma Rupal De Leon is a 71 y/o F with a PMHx of Asthma, COPD,extensive bronchiectasis Diabetes and HTN who presents with SOB. SOB is worse at night. Patient on home oxygen and tried her nebulizer which did not help. Patient was discharged from [facility] for Asthma/bronchiectasis Exacerbation on 06/16 where she was prescribed new medications but she did have time to fill the prescriptions before SOB became worse. Pt has 40 year pack smoking hx and continues to smoke 5 cigarettes/day. Patient was seen and examined at bedside. Patient resting comfortably. Patient complains of SOB and congestion. Denies fever, chills, headache, dizziness, cough, chest pain, n/v/, diarrhea, constipation or leg swelling. Allergies: moxifloxacin, azithromycin PMHx: HTN, Asthma, COPD, Diabetes SocialHx: denies alcohol and drug use. 40 year smoking hx. Patient says she smokes "5 cigarettes a day now." Review of Systems - Review of Systems All systems: reviewed and no additional remarkable complaints except (Shortness of breath and cough) Past Patient History - Infectious Disease Hx of Infectious Diseases: None - Past Medical History & Family History Past Medical History?: Yes - Past Social History Smoking Status: Former Smoker - CARDIAC Hx Hypertension: Yes - PULMONARY Hx Chronic Obstructive Pulmonary Disease (COPD): Yes - NEUROLOGICAL Hx Neurological Disorder: No - HEENT Hx HEENT Problems: Yes Other/Comment: USES GLASSES - RENAL Hx Chronic Kidney Disease: No - ENDOCRINE/METABOLIC Hx Diabetes Mellitus Type 2: Yes - HEMATOLOGICAL/ONCOLOGICAL Hx Blood Disorders: No - INTEGUMENTARY Hx Dermatological Problems: No - MUSCULOSKELETAL/RHEUMATOLOGICAL Hx Arthritis: Yes - GASTROINTESTINAL Hx Gastrointestinal Disorders: No - GENITOURINARY/GYNECOLOGICAL Hx Genitourinary Disorders: No - PSYCHIATRIC Hx Substance Use: No - SURGICAL HISTORY Hx Surgeries: Yes Hx Cardiac Catheterization: Yes (2015) - ANESTHESIA Hx Anesthesia: Yes Hx Anesthesia Reactions: No Hx Malignant Hyperthermia: No Meds Allergies/Adverse Reactions: Allergies Allergy/AdvReac Type Severity Reaction Status Date / Time moxifloxacin HCl Allergy Intermediate RASH Verified 06/17/17 04:31 [From Avelox] azithromycin AdvReac ITCHING Verified 06/17/17 04:31 - Medications Medications: Current Medications Albuterol/Ipratropium (Duoneb 3 Mg/0.5 Mg (3 Ml) Ud) 3 ml INH RQ4 [facility] Last Admin: 06/17/17 16:31 Dose: 3 ml Albuterol/Ipratropium (Duoneb 3 Mg/0.5 Mg (3 Ml) Ud) 3 ml INH Q4 [facility] Stop: 06/18/17 00:01 Last Admin: 06/17/17 12:44 Dose: Not Given Heparin Sodium (Porcine) (Heparin) 5,000 units SC Q12 [facility] Ceftriaxone Sodium (Rocephin Iv 1 Gm Duplex) 50 mls @ 100 mls/hr IVPB DAILY [facility] Last Admin: 06/17/17 10:09 Dose: 100 mls/hr Methylprednisolone (Solu-Medrol) 60 mg IVP Q8H [facility] Montelukast Sodium (Singulair) 10 mg PO DAILY [facility] Last Admin: 06/17/17 09:15 Dose: 10 mg Fluticasone/Salmeterol (Advair Diskus 250/50) 1 puff INH RQ12 [facility] Sitagliptin Phosphate (Januvia) 50 mg PO DAILY [facility] Last Admin: 06/17/17 09:15 Dose: 50 mg Tiotropium [place] (Spiriva) 18 mcg IH RQ24 [facility] Last Admin: 06/17/17 12:45 Dose: Not Given Physical Exam - Head Exam Head Exam: ATRAUMATIC, NORMOCEPHALIC - Eye Exam Eye Exam: Normal appearance - ENT Exam ENT Exam: Mucous Membranes Moist - Neck Exam Neck exam: Positive for: Normal Inspection - Respiratory Exam Respiratory Exam: Rhonchi, Wheezes - Cardiovascular Exam Cardiovascular Exam: REGULAR RHYTHM - GI/Abdominal Exam GI & Abdominal Exam: Normal Bowel Sounds, Soft Results - Vital Signs Recent Vital Signs: Last Vital Signs Temp 99 F 06/17/17 16:00 Pulse 95 H 06/17/17 16:32 Resp 20 06/17/17 16:00 BP 130/79 06/17/17 16:00 Pulse Ox 95 06/17/17 16:32 - Labs Result Diagrams: 06/18/17 11:18 06/18/17 11:18 Labs: Laboratory Results - last 24 hr 06/17/17 06/17/17 06/17/17 04:47 04:47 04:47 WBC 10.2 RBC 5.13 Hgb 14.1 Hct 43.8 MCV 85.5 MCH 27.5 MCHC 32.2 L RDW 16.8 H Plt Count 724 H MPV 9.3 Neut % (Auto) 58.0 Lymph % (Auto) 26.4 [place] % (Auto) 8.2 Eos % (Auto) 6.5 H Baso % (Auto) 0.9 Neut # 5.9 Lymph # 2.7 [place] # 0.8 Eos # 0.7 Baso # 0.1 PT 10.4 INR 0.9 APTT 30 Puncture Site pCO2 pO2 HCO3 ABG pH ABG Total CO2 ABG O2 Saturation ABG Base Excess Reji Test ABG Potassium A-a O2 Difference Respiratory Index Glucose Lactate FiO2 Sodium 138 Potassium 3.8 Chloride 101 Carbon Dioxide 27 Anion Gap 14 BUN 16 Creatinine 0.6 L Est GFR ( Amer) > 60 Est GFR (Non-Af Amer) > 60 Random Glucose 79 Calcium 8.0 L Total Bilirubin 0.8 AST 21 ALT 33 Alkaline Phosphatase 58 NT-Pro-B Natriuret Pep 201 Total Protein 6.3 Albumin 4.0 Globulin 2.4 Albumin/Globulin Ratio 1.7 Arterial Blood Potassium 06/17/17 04:55 WBC RBC Hgb Hct MCV MCH MCHC RDW Plt Count MPV Neut % (Auto) Lymph % (Auto) [place] % (Auto) Eos % (Auto) Baso % (Auto) Neut # Lymph # [place] # Eos # Baso # PT INR APTT Puncture Site Rr pCO2 49 H pO2 65 L HCO3 27.7 ABG pH 7.39 ABG Total CO2 31.2 H ABG O2 Saturation 96.8 ABG Base Excess 3.7 H Reji Test Pos ABG Potassium 3.3 L A-a O2 Difference 123.0 Respiratory Index 1.9 Glucose 92 Lactate 1.1 FiO2 35.0 Sodium 141.0 Potassium Chloride 110.0 H Carbon Dioxide Anion Gap BUN Creatinine Est GFR ( Amer) Est GFR (Non-Af Amer) Random Glucose Calcium Total Bilirubin AST ALT Alkaline Phosphatase NT-Pro-B Natriuret Pep Total Protein Albumin Globulin Albumin/Globulin Ratio Arterial Blood Potassium 3.3 L Assessment & Plan (1) COPD exacerbation Status: Acute Comment: Rupal De Leon is a 71 y/o F with a PMHx of Asthma, COPD, severe bronchiectasis Diabetes and HTN who presents with SOB. bronchiectasis exacerbation with lower respiratory tract infection. r/o pneumonia. continue IV antibiotics covering pseudomonas. Patient will benefit from VEST therapy because of recurrent infection and multiple admission. Chest X-ray 06/05: Chronic areas of atelectasis/scarring and bronchiectasis with upper lobe predominance less well seen on this study as compared to high resolution CT chest. There may also be some mild bibasilar atelectasis as well. Continue medications (?) (2) Bronchiectasis Status: Acute
[2017-06-17] MEDS: Cefepime IV 1 gm in Dextrose 1 GM/50 ML BAG IVPB SCH (19:08)
[2017-06-17] MEDS ORDERED: Fluticasone-Salmeterol 250-50mcg Diskus INH SCH (20:00)
[2017-06-18] MEDS: MethylPREDNISolone 40 mg Vial IVP SCH ×4 (01:15→19:15)
[2017-06-18] MEDS ORDERED: Albuterol-Ipratrop 3 mg / 0.5 (3 ml) UD INH STA (02:05)
[2017-06-18] MEDS: Albuterol-Ipratrop 3 mg / 0.5 (3 ml) UD INH SCH ×5 (04:03→19:59)
[2017-06-18] MEDS: Cefepime IV 1 gm in Dextrose 1 GM/50 ML BAG IVPB SCH ×2 (06:28→19:04)
[2017-06-18] MEDS: Tiotropium 18 mcg Cap For Inhalation IH SCH (10:00)
[2017-06-18 11:28] LABS: BASO % 0.2 % (0.0-2.0); EOS % 0.2 % (0.0-4.0); HEMATOCRIT 42.5 % (34.0-47.0); LYMPH % 5.9 % (20.0-40.0); MEAN CELL VOLUME 85.6 fL (81.0-99.0); MEAN CORPUSCULAR HEMOGLOBIN 28.3 pg (27.0-31.0); MEAN PLATELET VOLUME 9.5 fL (7.2-11.7); MONO # 0.7 K/uL (0.0-0.8); PLATELET COUNT 810 K/uL (130-400); RED CELL DISTRIBUTION WIDTH 16.8 % (11.5-14.5); WHITE BLOOD COUNT 16.6 K/uL (4.8-10.8)
[2017-06-18 11:42] LABS: ALB/GLOB RATIO 1.5 (1.0-2.1); ALKALINE PHOSPHATASE 58 U/L (38-126); ALT/SGPT 32 U/L (9-52); AST/SGOT 20 U/L (14-36); BILIRUBIN,TOTAL 0.7 mg/dL (0.2-1.3); BLOOD UREA NITROGEN 18 mg/dL (7-17); CALCIUM 9.2 mg/dl (8.6-10.4); CARBON DIOXIDE 25 mmol/L (22-30); CHLORIDE 99 mmol/L (98-107); GFR AFRICAN-AMERICAN > 60; GLUCOSE,RANDOM 130 mg/dL (65-105); MAGNESIUM 1.9 mg/dL (1.6-2.3); PHOSPHOROUS 3.4 mg/dL (2.5-4.5); SODIUM 135 mmol/L (132-148); TOTAL PROTEIN 7.1 g/dL (6.3-8.3)
[2017-06-18 11:59] LABS: GIANT PLATELETS PRESENT; LARGE PLATELETS PRESENT; NEUTROPHIL 91 % (50-75); TOTAL CELLS COUNTED 100
--- NOTE | 2017-06-18 15:00 | CP.PCM.PN ---
<Santino Magaña - Last Filed: 06/18/17 18:24> Subjective - Date & Time of Evaluation Date of Evaluation: 06/18/17 Time of Evaluation: 08:00 - Subjective Subjective: HPI: This 71 year old female with PMHx of asthma, COPD, oxygen dependent at home - presents to the ED via EMS with complaints of shortness of breath. Patient was seen in ED recently, admitted, and discharged on 06/16/17 with appropriate medication, however patient admits to not filling her scripts. She experienced another episode of asthma exacerbation, and returned to the ED yesterday 06/17. Patient was given Nebulizer treatment en route to ED with improvement of symptoms. PMHx: Arthritis, Asthma, COPD, Diabetes, HTN Allergies moxifloxacin, azithromycin Meds: see EMR FamHx: denies Social: denies ETOH or illicit drug use. admits to smoking for many years ( states several cigarets per day). PGY2 Resident - Medicine Progress Note Patient seen and examined at bedside. No acute distress. No overnight events. Patient reports she is breathing better with treatment. When asked why she did not fill her medications on discharge from the hospital, she states that she was discharged too late at 5pm and could not make it to her pharmacy in time. Patient states she will call her son, have him pickup her medications today, so they will be available to her upon subsequent discharge. Currently denies fever , chills, headache, changes in vision, chest pain, palpitations, cough, abdominal pain, nausea/vomiting, diarrhea/constipation, or any additional acute complaints. Objective - Vital Signs/Intake and Output Vital Signs (last 24 hours): Temp Pulse Resp BP Pulse Ox 98.3 F 101 H 20 114/64 95 06/18/17 08:06 06/18/17 08:06 06/18/17 08:06 06/18/17 08:06 06/18/17 08:06 Intake and Output: 06/18/17 06/18/17 06:59 18:59 Intake Total 810 Output Total 600 Balance 210 - Medications Medications: Current Medications Albuterol/Ipratropium (Duoneb 3 Mg/0.5 Mg (3 Ml) Ud) 3 ml INH RQ4 [facility] Last Admin: 06/18/17 11:13 Dose: 3 ml Heparin Sodium (Porcine) (Heparin) 5,000 units SC Q12 [facility] Last Admin: 06/18/17 10:53 Dose: 5,000 units Cefepime HCl (Maxipime Iv 1 Gm Premix) 1 gm in 50 mls @ 100 mls/hr IVPB Q12H [facility] Last Admin: 06/18/17 06:28 Dose: 100 mls/hr Methylprednisolone (Solu-Medrol) 40 mg IVP Q8H [facility] Last Admin: 06/18/17 12:09 Dose: Not Given Montelukast Sodium (Singulair) 10 mg PO DAILY [facility] Last Admin: 06/18/17 10:53 Dose: 10 mg Fluticasone/Salmeterol (Advair Diskus 250/50) 1 puff INH RQ12 [facility] Sitagliptin Phosphate (Januvia) 50 mg PO DAILY [facility] Last Admin: 06/18/17 10:53 Dose: 50 mg Tiotropium [place] (Spiriva) 18 mcg IH RQ24 [facility] Last Admin: 06/18/17 10:00 Dose: 18 mcg - Labs Labs: 06/18/17 11:18 06/18/17 11:18 PT 10.4 SECONDS (9.7-12.2) 06/17/17 04:47 INR 0.9 06/17/17 04:47 APTT 30 SECONDS (21-34) 06/17/17 04:47 - Additional Findings Additional findings: - Constitutional Appears: Non-toxic, No Acute Distress - Head Exam Head Exam: ATRAUMATIC, NORMAL INSPECTION - Eye Exam Eye Exam: EOMI, Normal appearance, PERRL - ENT Exam ENT Exam: Mucous Membranes Dry, Normal External Ear Exam, Normal Oropharynx - Respiratory Exam Respiratory Exam: Decreased Breath Sounds, Wheezes, NORMAL BREATHING PATTERN. absent: Rales, Rhonchi - Cardiovascular Exam Cardiovascular Exam: REGULAR RHYTHM, +S1, +S2 - GI/Abdominal Exam GI & Abdominal Exam: Soft, Normal Bowel Sounds. absent: Tenderness - Extremities Exam Extremities Exam: Full ROM, Normal Capillary Refill. absent: Pedal Edema, Tenderness - Back Exam Back Exam: NORMAL INSPECTION. absent: CVA tenderness (L), CVA tenderness (R) - Neurological Exam Neurological Exam: Alert, Awake, Oriented x3 - Psychiatric Exam Psychiatric exam: Normal Affect, Normal Mood - Skin Skin Exam: Dry, Intact, Normal Color, Warm Assessment and Plan - Assessment and Plan (Free Text) Assessment: Asthma/COPD exacberation -duoneb 3mL INH RQ4 [facility] -Singulair 10mg PO HS [facility] -Spiriva 18mcg IH RQ24 -Advair diskus 250/50 1 puff INH Q12H -Cefepime -Solumedrol 40mg IVP Q8H [facility] -CXR 06/15/17 (prior admission) - Chronic areas of atelectasis/ scarring and bronchiectasis with upper lobe predominance less well seen on this study as compared to high-resolution CT chest. There may also be some mild bibasilar atelectasis as well. -Pulmonology consult, Dr. Florentino, f/u recs - Patient will benefit from VEST therapy because of recurrent infection and multiple admission HTN Controlled without meds Monitor DM Novolog sliding scale Januvia 50mg PO daily Prophylaxis Heparin 5000u SC SCDs <Ja Contreras S - Last Filed: 06/19/17 16:31> Objective - Vital Signs/Intake and Output Vital Signs (last 24 hours): Temp Pulse Resp BP Pulse Ox 97.9 F 105 H 20 115/70 96 06/19/17 08:00 06/19/17 08:00 06/19/17 08:00 06/19/17 08:00 06/19/17 08:00 Intake and Output: 06/19/17 06/19/17 06:59 18:59 Intake Total 1100 Balance 1100 - Labs Labs: 06/19/17 08:02 06/19/17 08:02 PT 10.4 SECONDS (9.7-12.2) 06/17/17 04:47 INR 0.9 06/17/17 04:47 APTT 30 SECONDS (21-34) 06/17/17 04:47 Attending/Attestation - Attestation I have personally seen and examined this patient.: Yes I have fully participated in the care of the patient.: Yes I have reviewed all pertinent clinical information, including history, physical exam and plan: Yes Notes (Text): Patient examined. Patient better. No acute distress. Continue bronchodilators. Continue methylprednisolone. Continue cefepime. Continue sitagliptin.
--- NOTE | 2017-06-18 18:55 | CP.PCM.PN ---
Subjective - Date & Time of Evaluation Date of Evaluation: 06/18/17 Time of Evaluation: 08:00 - Subjective Subjective: clinically same Objective - Vital Signs/Intake and Output Vital Signs (last 24 hours): Temp Pulse Resp BP Pulse Ox 98.5 F 104 H 20 126/76 95 06/18/17 15:53 06/18/17 15:53 06/18/17 15:53 06/18/17 15:53 06/18/17 15:53 Intake and Output: 06/18/17 06/18/17 06:59 18:59 Intake Total 810 Output Total 600 Balance 210 - Medications Medications: Current Medications Albuterol/Ipratropium (Duoneb 3 Mg/0.5 Mg (3 Ml) Ud) 3 ml INH RQ4 [facility] Last Admin: 06/18/17 17:33 Dose: 3 ml Heparin Sodium (Porcine) (Heparin) 5,000 units SC Q12 [facility] Last Admin: 06/18/17 10:53 Dose: 5,000 units Cefepime HCl (Maxipime Iv 1 Gm Premix) 1 gm in 50 mls @ 100 mls/hr IVPB Q12H [facility] Last Admin: 06/18/17 06:28 Dose: 100 mls/hr Methylprednisolone (Solu-Medrol) 40 mg IVP Q8H [facility] Last Admin: 06/18/17 12:09 Dose: Not Given Montelukast Sodium (Singulair) 10 mg PO DAILY [facility] Last Admin: 06/18/17 10:53 Dose: 10 mg Fluticasone/Salmeterol (Advair Diskus 250/50) 1 puff INH RQ12 [facility] Sitagliptin Phosphate (Januvia) 50 mg PO DAILY [facility] Last Admin: 06/18/17 10:53 Dose: 50 mg Tiotropium [place] (Spiriva) 18 mcg IH RQ24 [facility] Last Admin: 06/18/17 10:00 Dose: 18 mcg - Labs Labs: 06/18/17 11:18 06/18/17 11:18 PT 10.4 SECONDS (9.7-12.2) 06/17/17 04:47 INR 0.9 06/17/17 04:47 APTT 30 SECONDS (21-34) 06/17/17 04:47 - Constitutional Appears: Well - Head Exam Head Exam: ATRAUMATIC, NORMAL INSPECTION, NORMOCEPHALIC - Eye Exam Eye Exam: EOMI, Normal appearance, PERRL Pupil Exam: NORMAL ACCOMODATION, PERRL - ENT Exam ENT Exam: Mucous Membranes Moist, Normal Exam - Neck Exam Neck Exam: Full ROM, Normal Inspection. absent: Lymphadenopathy - Respiratory Exam Respiratory Exam: Decreased Breath Sounds - Cardiovascular Exam Cardiovascular Exam: REGULAR RHYTHM, +S1, +S2 - GI/Abdominal Exam GI & Abdominal Exam: Soft, Diminished Bowel Sounds - Rectal Exam Rectal Exam: Deferred Assessment and Plan (1) Acute asthma exacerbation Status: Acute (2) Asthma Status: Acute (3) Asthma exacerbation Status: Acute (4) Bronchiectasis Status: Acute (5) COPD exacerbation Status: Acute (6) Choking episode Status: Acute (7) Chr obstructive pulmonary disease w/ acute lower respiratory infxn Status: Acute (8) Diabetes mellitus Status: Acute (9) Dizziness Status: Acute (10) Dyspnea Status: Acute (11) Dyspnea Status: Acute (12) Exacerbation of asthma Status: Acute (13) Headache Status: Acute (14) Hypertension Status: Acute (15) Hypoxia Status: Acute (16) Insomnia Status: Acute (17) Left against medical advice Status: Acute (18) Pneumonia Status: Acute (19) Pulmonary nodule, left Status: Acute (20) Respiratory tract infection Status: Acute - Assessment and Plan (Free Text) Plan: Patient examined. Patient better. Laboratory investigation shows raised total count. Continue bronchodilators, methylprednisolone. Continue sitagliptin. Continuation cefepime.
[2017-06-19 00:08] VITALS: O2SAT 96
[2017-06-19] MEDS: Albuterol-Ipratrop 3 mg / 0.5 (3 ml) UD INH SCH ×4 (00:59→11:06)
[2017-06-19] MEDS: MethylPREDNISolone 40 mg Vial IVP SCH (04:35)
[2017-06-19] MEDS: Cefepime IV 1 gm in Dextrose 1 GM/50 ML BAG IVPB SCH (06:24)
[2017-06-19 08:18] LABS: BASO % 0.1 % (0.0-2.0); HEMATOCRIT 43.3 % (34.0-47.0); LYMPH # 0.4 K/uL (1.0-4.3); LYMPH % 2.7 % (20.0-40.0); MEAN CELL VOLUME 86.2 fL (81.0-99.0); MEAN CORPUSCULAR HEMOGLOBIN 28.1 pg (27.0-31.0); MEAN CORPUSCULAR HGB CONC 32.6 g/dL (33.0-37.0); MEAN PLATELET VOLUME 9.3 fL (7.2-11.7); MONO # 0.6 K/uL (0.0-0.8); MONO % 3.6 % (0.0-10.0); PLATELET COUNT 753 K/uL (130-400); RED CELL DISTRIBUTION WIDTH 16.6 % (11.5-14.5); WHITE BLOOD COUNT 16.3 K/uL (4.8-10.8)
--- NOTE | 2017-06-19 09:01 | CP.PCM.PN ---
<Pancho Salter - Last Filed: 06/19/17 10:17> Subjective - Date & Time of Evaluation Date of Evaluation: 06/19/17 Time of Evaluation: 09:01 - Subjective Subjective: PGY2 Note for Dr. Jabari Contreras; all management as per Dr. Jabari Contreras The patient states she feels well, is no longer wheezing, and is walking/ ambulatin gwithout problem or shortness of breath. The patient is stable for d/ c as per Dr. Jabari Contreras. Objective - Vital Signs/Intake and Output Vital Signs (last 24 hours): Temp Pulse Resp BP Pulse Ox 98.4 F 77 20 124/73 96 06/19/17 00:05 06/19/17 00:05 06/19/17 00:05 06/19/17 00:05 06/19/17 00:05 Intake and Output: 06/19/17 06/19/17 06:59 18:59 Intake Total 1100 Balance 1100 - Medications Medications: Current Medications Albuterol/Ipratropium (Duoneb 3 Mg/0.5 Mg (3 Ml) Ud) 3 ml INH RQ4 LINDA Last Admin: 06/19/17 07:38 Dose: 3 ml Heparin Sodium (Porcine) (Heparin) 5,000 units SC Q12 LINDA Last Admin: 06/18/17 22:22 Dose: 5,000 units Cefepime HCl (Maxipime Iv 1 Gm Premix) 1 gm in 50 mls @ 100 mls/hr IVPB Q12H LINDA Last Admin: 06/19/17 06:24 Dose: 100 mls/hr Methylprednisolone (Solu-Medrol) 40 mg IVP Q12H LINDA Montelukast Sodium (Singulair) 10 mg PO DAILY LINDA Last Admin: 06/18/17 10:53 Dose: 10 mg Fluticasone/Salmeterol (Advair Diskus 250/50) 1 puff INH RQ12 LINDA Sitagliptin Phosphate (Januvia) 50 mg PO DAILY LINDA Last Admin: 06/18/17 10:53 Dose: 50 mg Tiotropium [place] (Spiriva) 18 mcg IH RQ24 LINDA Last Admin: 06/18/17 10:00 Dose: 18 mcg - Labs Labs: 06/19/17 08:02 06/18/17 11:18 PT 10.4 SECONDS (9.7-12.2) 06/17/17 04:47 INR 0.9 06/17/17 04:47 APTT 30 SECONDS (21-34) 06/17/17 04:47 - Constitutional Appears: Well, Non-toxic - Head Exam Head Exam: ATRAUMATIC, NORMAL INSPECTION - Eye Exam Eye Exam: EOMI - ENT Exam ENT Exam: Mucous Membranes Moist - Neck Exam Neck Exam: Full ROM - Respiratory Exam Respiratory Exam: Clear to Ausculation Bilateral - Cardiovascular Exam Cardiovascular Exam: REGULAR RHYTHM - GI/Abdominal Exam GI & Abdominal Exam: Soft - Back Exam Back Exam: absent: CVA tenderness (L), CVA tenderness (R) - Neurological Exam Neurological Exam: Alert, Awake, CN II-XII Intact, Normal Gait, Oriented x3 - Psychiatric Exam Psychiatric exam: Normal Affect - Skin Skin Exam: Warm Assessment and Plan - Assessment and Plan (Free Text) Assessment: Asthma/COPD exacberation; resolving -duoneb 3mL INH RQ4 LINDA -Singulair 10mg PO HS LINDA -Spiriva 18mcg IH RQ24 -Advair diskus 250/50 1 puff INH Q12H -Cefepime -Solumedrol 40mg IVP Q8H LINDA -06/19: redued to Q12H 40mg IV solumedrol; can likely be d/c with steroids PO at this point if stable -CXR 06/15/17 (prior admission) - Chronic areas of atelectasis/ scarring and bronchiectasis with upper lobe predominance less well seen on this study as compared to high-resolution CT chest. There may also be some mild bibasilar atelectasis as well. -Pulmonology consult, Dr. Florentino, f/u recs - Patient will benefit from VEST therapy because of recurrent infection and multiple admission HTN Controlled without meds Monitor DM Novolog sliding scale Januvia 50mg PO daily Prophylaxis Heparin 5000u SC SCDs The patient is stable for d/c as per Dr. Jabari Contreras She will get 40mg PO prednisone for 7 more days She does not need more abx she has all other inhalers already filled as per patient she will need to follow up with Dr. Florentino, pulmonology, as outpatient All management as per Dr. Jabari Contreras <Ja Contreras S - Last Filed: 06/19/17 16:32> Objective - Vital Signs/Intake and Output Vital Signs (last 24 hours): Temp Pulse Resp BP Pulse Ox 97.9 F 105 H 20 115/70 96 06/19/17 08:00 06/19/17 08:00 06/19/17 08:00 06/19/17 08:00 06/19/17 08:00 Intake and Output: 06/19/17 06/19/17 06:59 18:59 Intake Total 1100 Balance 1100 - Labs Labs: 06/19/17 08:02 06/19/17 08:02 PT 10.4 SECONDS (9.7-12.2) 06/17/17 04:47 INR 0.9 06/17/17 04:47 APTT 30 SECONDS (21-34) 06/17/17 04:47 Assessment and Plan (1) Acute asthma exacerbation Status: Acute (2) Asthma Status: Acute (3) Asthma exacerbation Status: Acute (4) Bronchiectasis Status: Acute (5) COPD exacerbation Status: Acute (6) Choking episode Status: Acute (7) Chr obstructive pulmonary disease w/ acute lower respiratory infxn Status: Acute (8) Diabetes mellitus Status: Acute (9) Dizziness Status: Acute (10) Dyspnea Status: Acute (11) Dyspnea Status: Acute (12) Exacerbation of asthma Status: Acute (13) Headache Status: Acute (14) Hypertension Status: Acute (15) Hypoxia Status: Acute (16) Insomnia Status: Acute (17) Left against medical advice Status: Acute (18) Pneumonia Status: Acute (19) Pulmonary nodule, left Status: Acute (20) Respiratory tract infection Status: Acute Attending/Attestation - Attestation I have personally seen and examined this patient.: Yes I have fully participated in the care of the patient.: Yes I have reviewed all pertinent clinical information, including history, physical exam and plan: Yes Notes (Text): Patient examined. No wheezing present. Patient is ambulatory. Patient can be discharged. Continue bronchodilators and methylprednisolone. Continue supportive care.
[2017-06-19 09:09] LABS: ALB/GLOB RATIO 1.4 (1.0-2.1); ALKALINE PHOSPHATASE 62 U/L (38-126); ALT/SGPT 32 U/L (9-52); AST/SGOT 18 U/L (14-36); BILIRUBIN,TOTAL 0.7 mg/dL (0.2-1.3); BLOOD UREA NITROGEN 21 mg/dL (7-17); CALCIUM 8.6 mg/dl (8.6-10.4); CARBON DIOXIDE 30 mmol/L (22-30); CHLORIDE 99 mmol/L (98-107); GFR AFRICAN-AMERICAN > 60; GLUCOSE,RANDOM 110 mg/dL (65-105); MAGNESIUM 1.8 mg/dL (1.6-2.3); PHOSPHOROUS 3.8 mg/dL (2.5-4.5); POTASSIUM 3.8 mmol/L (3.6-5.2); SODIUM 141 mmol/L (132-148); TOTAL PROTEIN 6.8 g/dL (6.3-8.3)
[2017-06-19] MEDS ORDERED: MethylPREDNISolone 40 mg Vial IVP SCH (09:15)
[2017-06-19 09:35] VITALS: BP 115/70; PULSE 105; TEMP 97.9
[2017-06-19 10:02] LABS: NEUTROPHIL 84 % (50-75); REACTIVE LYMPHOCYTES 1 % (0-0); TOTAL CELLS COUNTED 100
[2017-06-19 10:03] LABS: GIANT PLATELETS PRESENT; LARGE PLATELETS PRESENT
[2017-06-19] MEDS: Tiotropium 18 mcg Cap For Inhalation IH SCH (11:05)
[2017-06-19] MEDS ORDERED: Influenza Vaccine 60 mcg/0.5 mL SYR (4YR UP) IM ONE (11:30)
--- NOTE | 2017-06-19 13:13 | CP.PCM.PN ---
Objective - Vital Signs/Intake and Output Vital Signs (last 24 hours): Temp Pulse Resp BP Pulse Ox 97.9 F 105 H 20 115/70 96 06/19/17 08:00 06/19/17 08:00 06/19/17 08:00 06/19/17 08:00 06/19/17 08:00 Intake and Output: 06/19/17 06/19/17 06:59 18:59 Intake Total 1100 Balance 1100 - Medications Medications: Current Medications Albuterol/Ipratropium (Duoneb 3 Mg/0.5 Mg (3 Ml) Ud) 3 ml INH RQ4 LINDA Last Admin: 06/19/17 11:06 Dose: 3 ml Heparin Sodium (Porcine) (Heparin) 5,000 units SC Q12 LINDA Last Admin: 06/19/17 10:21 Dose: 5,000 units Cefepime HCl (Maxipime Iv 1 Gm Premix) 1 gm in 50 mls @ 100 mls/hr IVPB Q12H LINDA Last Admin: 06/19/17 06:24 Dose: 100 mls/hr Methylprednisolone (Solu-Medrol) 40 mg IVP Q12H LINDA Last Admin: 06/19/17 10:20 Dose: 40 mg Montelukast Sodium (Singulair) 10 mg PO DAILY LINDA Last Admin: 06/19/17 10:20 Dose: 10 mg Fluticasone/Salmeterol (Advair Diskus 250/50) 1 puff INH RQ12 LINDA Sitagliptin Phosphate (Januvia) 50 mg PO DAILY LINDA Last Admin: 06/19/17 10:20 Dose: 50 mg Tiotropium [place] (Spiriva) 18 mcg IH RQ24 LINDA Last Admin: 06/19/17 11:05 Dose: 18 mcg - Labs Labs: 06/19/17 08:02 06/19/17 08:02 PT 10.4 SECONDS (9.7-12.2) 06/17/17 04:47 INR 0.9 06/17/17 04:47 APTT 30 SECONDS (21-34) 06/17/17 04:47 Assessment and Plan (1) COPD exacerbation Status: Acute (2) Bronchiectasis Status: Acute
[2017-06-19] MEDS ORDERED: Fluticasone-Salmeterol 250-50mcg Diskus INH SCH (20:00)
[2017-06-20] MEDS ORDERED: Pneumococcal 23-Valent Vaccine IM ONE ×2 (10:00)
--- NOTE | 2017-06-20 19:38 | CARD ---
APPROVED REPORT EKG Measurement Heart [id number] <Conclusion> Normal sinus rhythm Possible Left atrial enlargement Incomplete right bundle branch block Left anterior fascicular block Abnormal ECG
== END 2017-06-19 14:18 | disposition home or self-care (01) | DRG 190 ==
LOC: SUPCPDRO 04:24 → C.ER 04:24 → C.3T 06:28
PROVIDERS: ADMIT Internal Medicine Nephrology; ATTEND Internal Medicine Nephrology
DX: J44.0 Chronic obstructive pulmonary disease with (acute) lower respiratory infection (principal); J18.9 Pneumonia, unspecified organism; Z99.81 Dependence on supplemental oxygen; J45.901 Unspecified asthma with (acute) exacerbation; J98.11 Atelectasis; J44.1 Chronic obstructive pulmonary disease with (acute) exacerbation; E11.9 Type 2 diabetes mellitus without complications; M19.90 Unspecified osteoarthritis, unspecified site; I10 Essential (primary) hypertension; F17.210 Nicotine dependence, cigarettes, uncomplicated; R09.89 Other specified symptoms and signs involving the circulatory and respiratory systems; R09.02 Hypoxemia; G47.00 Insomnia, unspecified

== ENCOUNTER 2017-09-05 15:18 | Emergency (ER) | payer MEDICARE, MEDICAID ==
[2017-09-05 15:48] VITALS: BMI 25.4
[2017-09-05 15:54] VITALS: O2SAT 95
--- NOTE | 2017-09-05 17:47 | C.PDOC ---
History Of Present Illness 72-year-old female, presents to the emergency department with complaints of three-day duration of intermittent dizziness, that is described as room- spinning. Patient has a Hx of vertigo in the past and this feels similar. Denies nausea/vomiting, chest pain, shortness of breath. No other complaints at this time. Time Seen by Provider: 09/05/17 16:03 Chief Complaint (Nursing): Dizziness/Lightheaded History Per: Patient History/Exam Limitations: no limitations Onset/Duration Of Symptoms: Days Past Medical History Reviewed: Historical Data, Nursing Documentation, Vital Signs Vital Signs: Last Vital Signs Temp 98.7 F 09/05/17 15:50 Pulse 85 09/05/17 15:50 Resp 17 09/05/17 15:50 BP 123/77 09/05/17 15:50 Pulse Ox 95 09/05/17 17:57 - Medical History PMH: Arthritis, Asthma, COPD, Diabetes, HTN Family History: States: No Known Family Hx - Social History Hx Tobacco Use: Yes (Last use 3 days ago) Hx Alcohol Use: No Hx Substance Use: No - Immunization History Hx Tetanus Toxoid Vaccination: No Hx Influenza Vaccination: No Hx Pneumococcal Vaccination: Yes Review Of Systems Except As Marked, All Systems Reviewed And Found Negative. Constitutional: Negative for: Fever, Chills Cardiovascular: Negative for: Chest Pain, Palpitations Respiratory: Negative for: Shortness of Breath Gastrointestinal: Negative for: Nausea, Vomiting, Abdominal Pain Skin: Negative for: Rash Neurological: Positive for: Dizziness. Negative for: Weakness, Numbness, Headache Physical Exam - Physical Exam Appears: Non-toxic, No Acute Distress Skin: Normal Color, Warm, Dry, No Rash Head: Atraumatic, Normacephalic Eye(s): bilateral: Normal Inspection, PERRL, EOMI, Other (No nystagmus) Ear(s): Bilateral: Normal Nose: Normal Oral Mucosa: Moist Lips: Normal Appearing Throat: No Erythema, No Exudate Neck: Normal ROM, Supple Chest: Symmetrical Cardiovascular: Rhythm Regular, No Friction Rub, No Murmur Respiratory: Normal Breath Sounds, No Accessory Muscle Use Gastrointestinal/Abdominal: Soft, No Tenderness Back: Normal Inspection, No CVA Tenderness Extremity: Normal ROM, No Swelling Neurological/Psych: Oriented x3, Normal Speech, Normal Motor Gait: Steady ED Course And Treatment O2 Sat by Pulse Oximetry: 95 (RA) Pulse Ox Interpretation: Normal Medical Decision Making Medical Decision Making: Plan: * Antivert * Reassess and Disposition On re-evaluation, patients dizziness has resolved. On re-exam, the patient reports improvement of symptoms. Lungs are CTA, heart is RRR, abdomen is soft, non-tender and is tolerating PO well. Ambulatory in the ED with steady gait. Follow up with the medical doctor within 1-2 days without fail. Return if worsened. Disposition - Disposition Referrals: Shaik Lynn MD [Staff Provider] - Disposition: HOME/ ROUTINE Disposition Time: 17:45 Condition: GOOD Additional Instructions: Follow up with the medical doctor within 1-2 days. Return if worsened. Prescriptions: Meclizine [Meclizine*] 25 mg PO Q8 PRN #30 tab PRN Reason: Dizziness Instructions: Vertigo (a Type of Dizziness) (DC) Forms: [employer] (Japanese) - Clinical Impression Clinical Impression: Vertigo - Scribe Statement The provider has reviewed the documentation as recorded by the Scribe (Rohan Owen) All medical record entries made by the Scribe were at my direction and personally dictated by me. I have reviewed the chart and agree that the record accurately reflects my personal performance of the history, physical exam, medical decision making, and the department course for this patient. I have also personally directed, reviewed, and agree with the discharge instructions and disposition.
[2017-09-05 18:18] VITALS: BP 140/80; PULSE 83; RESP 18; TEMP 97.9
== END 2017-09-05 18:18 | disposition home or self-care (01) ==
LOC: C.ER 15:18
DX: R42 Dizziness and giddiness (principal); I10 Essential (primary) hypertension; Z87.891 Personal history of nicotine dependence

== ENCOUNTER 2017-10-10 11:29 | Emergency (ER) | payer OTHER, MEDICAID ==
[2017-10-10 11:37] VITALS: BMI 24.7
[2017-10-10 11:39] VITALS: O2SAT 94
--- NOTE | 2017-10-10 12:38 | C.PDOC ---
History Of Present Illness 72 year old female, whose PMHx includes Asthma, presents to the ED for evaluation of asthma exacerbation which began yesterday. Patient states she found limited improvement after using albuterol. Patient states she last used nebulizer in May. Patient denies fever, chills, chest pain. Time Seen by Provider: 10/10/17 12:02 Chief Complaint (Nursing): Shortness Of Breath History Per: Patient History/Exam Limitations: no limitations Onset/Duration Of Symptoms: Hrs Current Symptoms Are (Timing): Still Present Current Respiratory Medications: Albuterol Associated Symptoms: denies: Fever, Chills, Chest Pain Past Medical History Reviewed: Historical Data, Nursing Documentation, Vital Signs Vital Signs: Last Vital Signs Temp 97.9 F 10/10/17 11:38 Pulse 95 H 10/10/17 11:38 Resp 22 10/10/17 11:38 BP 115/78 10/10/17 11:38 Pulse Ox 94 L 10/10/17 15:25 - Medical History PMH: Arthritis, Asthma, COPD, Diabetes, HTN Denies: Chronic Kidney Disease Surgical History: No Surg Hx Family History: States: Unknown Family Hx - Social History Hx Tobacco Use: Yes (Last use 3 days ago) Hx Alcohol Use: No Hx Substance Use: No - Immunization History Hx Tetanus Toxoid Vaccination: No Hx Influenza Vaccination: No Hx Pneumococcal Vaccination: Yes Review Of Systems Constitutional: Negative for: Fever, Chills Cardiovascular: Negative for: Chest Pain Respiratory: Positive for: Other (asthma exacerbation ) Physical Exam - Physical Exam Appears: Non-toxic, No Acute Distress Skin: Normal Color, Warm, Dry Head: Atraumatic, Normacephalic Eye(s): bilateral: Normal Inspection Oral Mucosa: Moist Neck: Supple Chest: Symmetrical, No Deformity, No Tenderness Cardiovascular: Rhythm Regular, No Murmur Respiratory: Rhonchi (central ), Wheezing (expiratory ), Other (retraction ) Extremity: Normal ROM, Capillary Refill (less than 2 seconds ) Neurological/Psych: Oriented x3, Normal Speech, Normal Cognition ED Course And Treatment - Laboratory Results Result Diagrams: 10/10/17 13:48 10/10/17 13:48 O2 Sat by Pulse Oximetry: 94 Progress Note: Bloodwork and CXR ordered and reviewed. Albuterol INH and Prednisone PO administered. Reevaluation Time: 15:36 Reassessment Condition: Improved Disposition Counseled Patient/Family Regarding: Studies Performed, Diagnosis, Need For Followup, Rx Given - Disposition Referrals: YOUR,PMD [Other] Disposition: HOME/ ROUTINE Disposition Time: 15:36 Condition: IMPROVED Prescriptions: Albuterol 0.083% [Albuterol Sulfate 3 Ml] 3 ml IH Q4 #30 neb Albuterol HFA [Ventolin HFA 90 mcg/actuation (8 g)] 1 puff IH Q4 #1 inhaler predniSONE [Prednisone] 60 mg PO DAILY #12 tab Instructions: Asthma, Adult (DC) Forms: [employer] (Montenegrin) Print Language: CHINESE - Clinical Impression Clinical Impression: Exacerbation of asthma - Scribe Statement The provider has reviewed the documentation as recorded by the Scribe (Judy Contreras) Provider Attestation: All medical record entries made by the Scribe were at my direction and personally dictated by me. I have reviewed the chart and agree that the record accurately reflects my personal performance of the history, physical exam, medical decision making, and the department course for this patient. I have also personally directed, reviewed, and agree with the discharge instructions and disposition.
--- NOTE | 2017-10-10 12:41 | RAD ---
HISTORY: COUGH COMPARISON: 06/15/2017 TECHNIQUE: Chest PA and lateral FINDINGS: LUNGS: Stable scarring in the upper lobes right greater than left. Mild hazy opacity in retrocardiac location seen on the lateral view could be atelectasis versus pneumonia. PLEURA: No significant pleural effusion identified. No pneumothorax apparent.Biapical pleural parenchymal thickening noted. CARDIOVASCULAR: Stable. OSSEOUS STRUCTURES: Degenerative changes. VISUALIZED UPPER ABDOMEN: Limited evaluation. OTHER FINDINGS: Moderate-sized hiatal hernia again noted. IMPRESSION: Small hazy opacity in the retrocardiac location seen on the lateral view could be atelectasis versus pneumonia. Correlation with clinical symptoms requested.
[2017-10-10 13:54] LABS: BASO % 0.6 % (0.0-2.0); EOS # 0.5 K/uL (0.0-0.7); EOS % 5.8 % (0.0-4.0); HEMOGLOBIN 14.5 g/dL (11.0-16.0); LYMPH # 0.7 K/uL (1.0-4.3); LYMPH % 8.2 % (20.0-40.0); MEAN CORPUSCULAR HEMOGLOBIN 27.2 pg (27.0-31.0); MEAN CORPUSCULAR HGB CONC 32.8 g/dL (33.0-37.0); MEAN PLATELET VOLUME 9.3 fL (7.2-11.7); MONO # 0.3 K/uL (0.0-0.8); NEUT # 7.4 K/uL (1.8-7.0); NEUT % 82.4 % (50.0-75.0); NRBC % 0.1 % (0.0-2.0); RBC 5.35 Mil/uL (3.80-5.20); RED CELL DISTRIBUTION WIDTH 15.2 % (11.5-14.5); WHITE BLOOD COUNT 8.9 K/uL (4.8-10.8)
[2017-10-10 13:56] LABS: MEAN CELL VOLUME 82.9 fL (81.0-99.0); PLATELET COUNT 641 K/uL (130-400)
[2017-10-10 14:05] LABS: BLOOD UREA NITROGEN 9 mg/dL (7-17); CALCIUM 8.5 mg/dl (8.6-10.4); GFR AFRICAN-AMERICAN > 60; GFR NON-AFRICAN AMERICAN > 60
[2017-10-10] MEDS ORDERED: Albuterol-Ipratrop 3 mg / 0.5 (3 ml) UD ONE (14:13)
[2017-10-10] MEDS: Albuterol-Ipratrop 3 mg / 0.5 (3 ml) UD IH SCH (14:19)
[2017-10-10 14:21] LABS: BANDS 1 % (0-2); EOSINOPHIL 2 % (0-4); LYMPHOCYTE 8 % (20-40); MONOCYTE 5 % (0-10); NEUTROPHIL 84 % (50-75); PLATELET ESTIMATE INCREASED (NORMAL); TOTAL CELLS COUNTED 100
[2017-10-10 14:22] LABS: ANISOCYTOSIS SLIGHT; LARGE PLATELETS PRESENT
[2017-10-10 15:38] VITALS: BP 125/77; PULSE 82; RESP 20; TEMP 98.2
== END 2017-10-10 16:12 | disposition home or self-care (01) ==
LOC: C.ER 11:29
DX: J45.901 Unspecified asthma with (acute) exacerbation (principal); E11.9 Type 2 diabetes mellitus without complications; I10 Essential (primary) hypertension; Z72.0 Tobacco use

== ENCOUNTER 2017-10-26 00:30 | Inpatient (IN) | payer MEDICARE, MEDICAID ==
[2017-10-26 00:32] VITALS: BMI 24.7
[2017-10-26] MEDS ORDERED: Albuterol-Ipratrop 3 mg / 0.5 (3 ml) UD ONE (01:04)
[2017-10-26 01:23] LABS: BASO # 0.1 K/uL (0.0-0.2); BASO % 0.7 % (0.0-2.0); EOS # 1.7 K/uL (0.0-0.7); HEMOGLOBIN 14.5 g/dL (11.0-16.0); LYMPH # 2.3 K/uL (1.0-4.3); LYMPH % 18.8 % (20.0-40.0); MEAN CELL VOLUME 82.6 fL (81.0-99.0); MEAN CORPUSCULAR HEMOGLOBIN 26.9 pg (27.0-31.0); MEAN CORPUSCULAR HGB CONC 32.5 g/dL (33.0-37.0); MEAN PLATELET VOLUME 9.8 fL (7.2-11.7); MONO # 1.2 K/uL (0.0-0.8); MONO % 9.3 % (0.0-10.0); NEUT # 7.1 K/uL (1.8-7.0); NEUT % 57.2 % (50.0-75.0); RBC 5.39 Mil/uL (3.80-5.20); RED CELL DISTRIBUTION WIDTH 15.3 % (11.5-14.5); WHITE BLOOD COUNT 12.4 K/uL (4.8-10.8)
--- NOTE | 2017-10-26 01:27 | C.PDOC ---
History Of Present Illness 72 y/o female with a PMHx of COPD brought in by ambulance for complaints of SOB and wheezing, worsened tonight. Patient is on home oxygen at night and as needed. States she gave herself nebulizer treatments today at home without improvement. Patient has had previous admissions for similar presentation this winter. Denies any chest pain, fever, chills, dizziness, or other complaint. Time Seen by Provider: 10/26/17 01:04 Chief Complaint (Nursing): Shortness Of Breath History Per: Patient History/Exam Limitations: no limitations Onset/Duration Of Symptoms: Hrs Current Symptoms Are (Timing): Still Present Past Medical History Reviewed: Historical Data, Nursing Documentation, Vital Signs Vital Signs: Last Vital Signs Temp 98.3 F 10/26/17 00:39 Pulse 96 H 10/26/17 00:39 Resp 25 H 10/26/17 00:51 BP 131/73 10/26/17 00:39 Pulse Ox 96 10/26/17 01:31 - Medical History PMH: Arthritis, Asthma, COPD, Diabetes, HTN Denies: Chronic Kidney Disease Other Surgeries: Cardiac catheterization 2015 Family History: States: Unknown Family Hx - Social History Hx Tobacco Use: Yes (Last use 3 days ago) Hx Alcohol Use: No Hx Substance Use: No - Immunization History Hx Tetanus Toxoid Vaccination: No Hx Influenza Vaccination: No Hx Pneumococcal Vaccination: Yes Review Of Systems Except As Marked, All Systems Reviewed And Found Negative. Constitutional: Negative for: Fever, Chills Cardiovascular: Negative for: Chest Pain Respiratory: Positive for: Shortness of Breath, Wheezing Gastrointestinal: Negative for: Nausea, Vomiting Neurological: Negative for: Dizziness Physical Exam - Physical Exam Appears: In Acute Distress (moderate respiratory distress) Skin: Normal Color, Warm, Dry Head: Atraumatic, Normacephalic Eye(s): bilateral: Normal Inspection, PERRL, EOMI Oral Mucosa: Moist Neck: Normal ROM, Supple Chest: Symmetrical Cardiovascular: Rhythm Regular, No Murmur Respiratory: Rhonchi (scattered), Wheezing (scattered) Gastrointestinal/Abdominal: Soft, No Tenderness, No Distention Extremity: Bilateral: Atraumatic, No Pedal Edema, Normal Color And Temperature Pulses: Left Dorsalis Pedis: Normal, Right Dorsalis Pedis: Normal Neurological/Psych: Oriented x3, Normal Speech ED Course And Treatment - Laboratory Results Result Diagrams: 10/26/17 01:17 10/26/17 01:17 Lab Interpretation: Normal (mild leukocytosis without L shift) ECG: Interpreted By Me ECG Rhythm: Sinus Rhythm ECG Interpretation: Normal Rate From EC O2 Sat by Pulse Oximetry: 96 (NC) Pulse Ox Interpretation: Normal - Radiology CXR: Interpreted by Me CXR Interpretation: Yes: No Acute Disease, Other (chronic lung dz, + fluid in fissures, no acute pna/pnx) Reevaluation Time: 02:07 Reassessment Condition: Improved Critical Care Time - Critical Care Note Total Time (in mins): 90 Documented critical care: time excludes all time spent performing seperately billable procedures. Medical Decision Making Medical Decision Making: Impression: 72 y/o female with SOB and wheezing, Hx of COPD Initial Plan: * EKG * Blood work * Chest x-ray * Flu swab * Urinalysis copd exacerbation without PNA mild leukocytosis prob related to steroids as no L-shift Disposition Doctor Will See Patient In The: Hospital Counseled Patient/Family Regarding: Studies Performed, Diagnosis - Disposition Disposition: HOSPITALIZED Disposition Time: 02:08 Condition: GOOD Forms: [employer] (Italian) - Clinical Impression Clinical Impression: COPD exacerbation - Scribe Statement The provider has reviewed the documentation as recorded by the Klaus Sood Provider Attestation: All medical record entries made by the Klaus were at my direction and personally dictated by me. I have reviewed the chart and agree that the record accurately reflects my personal performance of the history, physical exam, medical decision making, and the department course for this patient. I have also personally directed, reviewed, and agree with the discharge instructions and disposition.
[2017-10-26 01:32] LABS: ALB/GLOB RATIO 1.2 (1.0-2.1); ALBUMIN 3.9 g/dL (3.5-5.0); ALT/SGPT 14 U/L (9-52); AST/SGOT 20 U/L (14-36); BLOOD UREA NITROGEN 8 mg/dL (7-17); CALCIUM 8.5 mg/dl (8.6-10.4); GFR AFRICAN-AMERICAN > 60; GFR NON-AFRICAN AMERICAN > 60
[2017-10-26 01:44] LABS: B-TYPE NATRIURETIC PEPTIDE 160 pg/mL (0-900)
[2017-10-26] MEDS: Albuterol-Ipratrop 3 mg / 0.5 (3 ml) UD INH SCH ×3 (07:58→20:28)
--- NOTE | 2017-10-26 07:58 | RAD ---
Chest x-ray single frontal view History: Shortness of breath. Comparison: 10/10/2017 Findings: Prominent diffuse increased interstitial lung markings which may represent underlying edema and or infiltrate. Biapical pleural thickening with upper lobe granulomatous changes. Dense confluent area of linear consolidative changes seen in the upper to mid lung zones bilaterally; right greater than left, not significantly changed since the prior study. Right paratracheal prominence may represent prominent vasculature. Patchy bibasilar airspace opacities. Bibasilar breast and nipple shadows. Mild cardiomegaly. Degenerative changes in the spine and shoulders. Impression: Prominent diffuse increased interstitial lung markings which may represent underlying edema and or infiltrate. Biapical pleural thickening with upper lobe granulomatous changes. Dense confluent area of linear consolidative changes seen in the upper to mid lung zones bilaterally; right greater than left, not significantly changed since the prior study. Right paratracheal prominence may represent prominent vasculature. Patchy bibasilar airspace opacities. Bibasilar breast and nipple shadows. Mild cardiomegaly. Degenerative changes in the spine and shoulders.
[2017-10-26] MEDS: MethylPREDNISolone 40 mg Vial IVP SCH ×3 (08:42→23:58)
[2017-10-26] MEDS: Pantoprazole 40 mg EC Tab PO SCH (09:42)
[2017-10-26] MEDS: Enoxaparin 40 mg Syringe SC SCH (09:42)
[2017-10-26] MEDS ORDERED: Tiotropium 18 mcg Cap For Inhalation IH SCH (10:00)
[2017-10-26] MEDS ORDERED: cefTRIAXone IV 1 gm in Dextros 50 ML IVPB SCH (10:00)
--- NOTE | 2017-10-26 10:51 | CP.PCM.CON ---
History of Present Illness - History of Present Illness History of Present Illness: reason for consultation: shortness of breath and cough Rupal De Leon is a 71 y/o F with a PMHx of Asthma/ COPD,extensive bronchiectasis Diabetes and HTN who presents with SOB. SOB is worse at night. Patient on home oxygen and tried her nebulizer which did not help.. Pt has 40 year pack smoking Patient was seen and examined at bedside. Patient resting comfortably. Patient complains of SOB and congestion. Denies fever, chills, headache, dizziness, cough, chest pain, n/v/, diarrhea, constipation or leg swelling. Allergies: moxifloxacin, azithromycin PMHx: HTN, Asthma, COPD, Diabetes SocialHx: denies alcohol and drug use. 40 year smoking hx. Patient says she smokes "5 cigarettes a day now." Review of Systems - Review of Systems All systems: reviewed and no additional remarkable complaints except (shortness of breathand productive cough) Past Patient History - Infectious Disease Hx of Infectious Diseases: None - Past Medical History & Family History Past Medical History?: Yes - Past Social History Smoking Status: Former Smoker - CARDIAC Hx Hypertension: Yes - PULMONARY Hx Asthma: Yes Hx Chronic Obstructive Pulmonary Disease (COPD): Yes - NEUROLOGICAL Hx Neurological Disorder: No - HEENT Hx HEENT Problems: Yes Other/Comment: USES GLASSES - RENAL Hx Chronic Kidney Disease: No - ENDOCRINE/METABOLIC Hx Endocrine Disorders: Yes Hx Diabetes Mellitus Type 2: Yes - HEMATOLOGICAL/ONCOLOGICAL Hx Blood Disorders: No - INTEGUMENTARY Hx Dermatological Problems: No - MUSCULOSKELETAL/RHEUMATOLOGICAL Hx Arthritis: Yes Hx Falls: Yes - GASTROINTESTINAL Hx Gastrointestinal Disorders: No - GENITOURINARY/GYNECOLOGICAL Hx Genitourinary Disorders: No - PSYCHIATRIC Hx Substance Use: No - SURGICAL HISTORY Hx Surgeries: Yes Hx Cardiac Catheterization: Yes (2015) - ANESTHESIA Hx Anesthesia: Yes Hx Anesthesia Reactions: No Hx Malignant Hyperthermia: No Meds Allergies/Adverse Reactions: Allergies Allergy/AdvReac Type Severity Reaction Status Date / Time moxifloxacin HCl Allergy Intermediate RASH Verified 10/10/17 11:37 [From Avelox] azithromycin AdvReac ITCHING Verified 10/10/17 11:37 - Medications Medications: Current Medications Albuterol/Ipratropium (Duoneb 3 Mg/0.5 Mg (3 Ml) Ud) 3 ml INH RQ6 [facility] Last Admin: 10/26/17 07:58 Dose: 3 ml Enoxaparin Sodium (Lovenox) 40 mg SC DAILY [facility] Last Admin: 10/26/17 09:42 Dose: 40 mg Ceftriaxone Sodium (Rocephin Iv 1 Gm Duplex) 50 mls @ 100 mls/hr IVPB DAILY [facility] PRN Reason: Protocol Last Admin: 10/26/17 09:56 Dose: 100 mls/hr Meclizine HCl (Antivert) 25 mg PO Q8 PRN PRN Reason: Dizziness Methylprednisolone (Solu-Medrol) 40 mg IVP Q8H [facility] Last Admin: 10/26/17 08:42 Dose: 40 mg Montelukast Sodium (Singulair) 10 mg PO DAILY [facility] Last Admin: 10/26/17 09:42 Dose: 10 mg Pantoprazole Sodium (Protonix Ec Tab) 40 mg PO DAILY [facility] Last Admin: 10/26/17 09:42 Dose: 40 mg Sitagliptin Phosphate (Januvia) 50 mg PO DAILY [facility] Last Admin: 10/26/17 09:42 Dose: 50 mg Tiotropium [place] (Spiriva) 18 mcg IH DAILY [facility] Tiotropium [place] (Spiriva Inhalation Handihaler Device) 1 inhaler INH DAILY [facility] Physical Exam - Head Exam Head Exam: ATRAUMATIC, NORMOCEPHALIC - ENT Exam ENT Exam: Mucous Membranes Moist - Neck Exam Neck exam: Positive for: Normal Inspection - Respiratory Exam Respiratory Exam: Clear to Auscultation Bilateral - Cardiovascular Exam Cardiovascular Exam: REGULAR RHYTHM - GI/Abdominal Exam GI & Abdominal Exam: Normal Bowel Sounds - Extremities Exam Extremities exam: Positive for: normal inspection - Neurological Exam Neurological exam: Alert, Oriented x3 Results - Vital Signs Recent Vital Signs: Last Vital Signs Temp 98.9 F 10/26/17 07:00 Pulse 98 H 10/26/17 07:00 Resp 20 10/26/17 07:00 BP 120/70 10/26/17 07:00 Pulse Ox 95 10/26/17 07:00 - Labs Result Diagrams: 10/26/17 01:17 10/26/17 01:17 Labs: Laboratory Results - last 24 hr 10/26/17 10/26/17 10/26/17 01:17 01:17 01:36 WBC 12.4 H RBC 5.39 H Hgb 14.5 Hct 44.5 MCV 82.6 MCH 26.9 L MCHC 32.5 L RDW 15.3 H Plt Count 576 H MPV 9.8 Neut % (Auto) 57.2 Lymph % (Auto) 18.8 L Stephens % (Auto) 9.3 Eos % (Auto) 14.0 H Baso % (Auto) 0.7 Neut # (Auto) 7.1 H Lymph # (Auto) 2.3 Stephens # (Auto) 1.2 H Eos # (Auto) 1.7 H Baso # (Auto) 0.1 Sodium 142 Potassium 3.5 L Chloride 102 Carbon Dioxide 29 Anion Gap 14 BUN 8 Creatinine 0.6 L Est GFR ( Amer) > 60 Est GFR (Non-Af Amer) > 60 POC Glucose (mg/dL) Random Glucose 96 Calcium 8.5 L Total Bilirubin 0.4 AST 20 ALT 14 Alkaline Phosphatase 67 Troponin I < 0.0120 NT-Pro-B Natriuret Pep 160 Total Protein 7.2 Albumin 3.9 Globulin 3.3 Albumin/Globulin Ratio 1.2 Influenza Typ A,B (EIA) Negative for flu a/b 10/26/17 06:48 WBC RBC Hgb Hct MCV MCH MCHC RDW Plt Count MPV Neut % (Auto) Lymph % (Auto) Stephens % (Auto) Eos % (Auto) Baso % (Auto) Neut # (Auto) Lymph # (Auto) Stephens # (Auto) Eos # (Auto) Baso # (Auto) Sodium Potassium Chloride Carbon Dioxide Anion Gap BUN Creatinine Est GFR ( Amer) Est GFR (Non-Af Amer) POC Glucose (mg/dL) 145 H Random Glucose Calcium Total Bilirubin AST ALT Alkaline Phosphatase Troponin I NT-Pro-B Natriuret Pep Total Protein Albumin Globulin Albumin/Globulin Ratio Influenza Typ A,B (EIA) Assessment & Plan (1) COPD exacerbation Status: Acute Comment: continue IV steroids and nebulizer treatment. Discontinue Rocephin and start Zosyn because of history of bronchiectasis and high risk for pseudomonal infection (2) Bronchiectasis Status: Acute
[2017-10-26] MEDS: Piperacill/Tazo 3.375gm in Dex 3.375 GM/50 ML BAG IVPB SCH ×2 (12:58→20:00)
[2017-10-26] MEDS ORDERED: Potassium Chloride 20 mEq ER Tab PO STA (13:03)
[2017-10-26] MEDS: Acetylcysteine 20% Inhal Soln (4ml) INH SCH ×2 (13:29→20:26)
--- NOTE | 2017-10-26 15:17 | CP.PCM.HP ---
Past Patient History - Infectious Disease Hx of Infectious Diseases: None - Past Medical History & Family History Past Medical History?: Yes - Past Social History Smoking Status: Former Smoker - CARDIAC Hx Hypertension: Yes - PULMONARY Hx Asthma: Yes Hx Chronic Obstructive Pulmonary Disease (COPD): Yes - NEUROLOGICAL Hx Neurological Disorder: No - HEENT Hx HEENT Problems: Yes Other/Comment: USES GLASSES - RENAL Hx Chronic Kidney Disease: No - ENDOCRINE/METABOLIC Hx Endocrine Disorders: Yes Hx Diabetes Mellitus Type 2: Yes - HEMATOLOGICAL/ONCOLOGICAL Hx Blood Disorders: No - INTEGUMENTARY Hx Dermatological Problems: No - MUSCULOSKELETAL/RHEUMATOLOGICAL Hx Arthritis: Yes Hx Falls: Yes - GASTROINTESTINAL Hx Gastrointestinal Disorders: No - GENITOURINARY/GYNECOLOGICAL Hx Genitourinary Disorders: No - PSYCHIATRIC Hx Substance Use: No - SURGICAL HISTORY Hx Surgeries: Yes Hx Cardiac Catheterization: Yes (2015) - ANESTHESIA Hx Anesthesia: Yes Hx Anesthesia Reactions: No Hx Malignant Hyperthermia: No Meds Allergies/Adverse Reactions: Allergies Allergy/AdvReac Type Severity Reaction Status Date / Time moxifloxacin HCl Allergy Intermediate RASH Verified 10/10/17 11:37 [From Avelox] azithromycin AdvReac ITCHING Verified 10/10/17 11:37 Physical Exam - Constitutional Appears: Well - Head Exam Head Exam: ATRAUMATIC, NORMAL INSPECTION, NORMOCEPHALIC - Eye Exam Eye Exam: EOMI, Normal appearance, PERRL Pupil Exam: NORMAL ACCOMODATION, PERRL - ENT Exam ENT Exam: Mucous Membranes Moist, Normal Exam - Neck Exam Neck exam: Positive for: Normal Inspection - Respiratory Exam Respiratory Exam: Decreased Breath Sounds - Cardiovascular Exam Cardiovascular Exam: REGULAR RHYTHM, +S1, +S2 - GI/Abdominal Exam GI & Abdominal Exam: Diminished Bowel Sounds, Soft - Rectal Exam Rectal Exam: Deferred Results - Vital Signs Recent Vital Signs: Last Vital Signs Temp 98.9 F 10/26/17 07:00 Pulse 100 H 10/26/17 07:00 Resp 20 10/26/17 07:00 BP 120/70 10/26/17 07:00 Pulse Ox 95 10/26/17 07:00 - Labs Result Diagrams: 10/26/17 01:17 10/26/17 01:17 Labs: Laboratory Results - last 24 hr 10/26/17 10/26/17 10/26/17 01:17 01:17 01:36 WBC 12.4 H RBC 5.39 H Hgb 14.5 Hct 44.5 MCV 82.6 MCH 26.9 L MCHC 32.5 L RDW 15.3 H Plt Count 576 H MPV 9.8 Neut % (Auto) 57.2 Lymph % (Auto) 18.8 L [place] % (Auto) 9.3 Eos % (Auto) 14.0 H Baso % (Auto) 0.7 Neut # (Auto) 7.1 H Lymph # (Auto) 2.3 [place] # (Auto) 1.2 H Eos # (Auto) 1.7 H Baso # (Auto) 0.1 Sodium 142 Potassium 3.5 L Chloride 102 Carbon Dioxide 29 Anion Gap 14 BUN 8 Creatinine 0.6 L Est GFR ( Amer) > 60 Est GFR (Non-Af Amer) > 60 POC Glucose (mg/dL) Random Glucose 96 Calcium 8.5 L Total Bilirubin 0.4 AST 20 ALT 14 Alkaline Phosphatase 67 Troponin I < 0.0120 NT-Pro-B Natriuret Pep 160 Total Protein 7.2 Albumin 3.9 Globulin 3.3 Albumin/Globulin Ratio 1.2 Influenza Typ A,B (EIA) Negative for flu a/b 10/26/17 06:48 WBC RBC Hgb Hct MCV MCH MCHC RDW Plt Count MPV Neut % (Auto) Lymph % (Auto) [place] % (Auto) Eos % (Auto) Baso % (Auto) Neut # (Auto) Lymph # (Auto) [place] # (Auto) Eos # (Auto) Baso # (Auto) Sodium Potassium Chloride Carbon Dioxide Anion Gap BUN Creatinine Est GFR ( Amer) Est GFR (Non-Af Amer) POC Glucose (mg/dL) 145 H Random Glucose Calcium Total Bilirubin AST ALT Alkaline Phosphatase Troponin I NT-Pro-B Natriuret Pep Total Protein Albumin Globulin Albumin/Globulin Ratio Influenza Typ A,B (EIA)
[2017-10-26 20:28] LABS: SQUAMOUS EPITHIAL 2 /hpf (0-5); URINE BILIRUBIN NEGATIVE (NEGATIVE); URINE BLOOD NEGATIVE (NEGATIVE); URINE CLARITY Clear (Clear); URINE COLOR Straw (YELLOW); URINE GLUCOSE (UA) NORMAL (Normal); URINE LEUKOCYTE ESTERASE NEG Leu/uL (Negative); URINE PROTEIN NEGATIVE (NEGATIVE); URINE UROBILINOGEN NORMAL mg/dL (0.2-1.0)
[2017-10-27] MEDS: Albuterol-Ipratrop 3 mg / 0.5 (3 ml) UD INH SCH ×4 (01:49→19:58)
[2017-10-27] MEDS: Acetylcysteine 20% Inhal Soln (4ml) INH SCH ×4 (01:49→19:59)
[2017-10-27] MEDS: Piperacill/Tazo 3.375gm in Dex 3.375 GM/50 ML BAG IVPB SCH ×3 (03:41→20:40)
[2017-10-27] MEDS: MethylPREDNISolone 40 mg Vial IVP SCH ×3 (08:45→23:24)
[2017-10-27] MEDS: Enoxaparin 40 mg Syringe SC SCH (10:11)
[2017-10-27] MEDS: Pantoprazole 40 mg EC Tab PO SCH (10:12)
[2017-10-27] MEDS: Tiotropium 18 mcg Cap For Inhalation IH SCH (13:54)
--- NOTE | 2017-10-27 14:09 | CP.PCM.PN ---
Subjective - Date & Time of Evaluation Date of Evaluation: 10/27/17 Time of Evaluation: 11:40 - Subjective Subjective: clinically same Objective - Vital Signs/Intake and Output Vital Signs (last 24 hours): Temp Pulse Resp BP Pulse Ox 97.9 F 89 20 125/75 95 10/27/17 08:06 10/27/17 08:06 10/27/17 08:06 10/27/17 08:06 10/27/17 08:06 Intake and Output: 10/27/17 10/27/17 06:59 18:59 Intake Total 750 Balance 750 - Medications Medications: Current Medications Acetylcysteine (Acetylcysteine 20%) 4 ml INH RQ6 [facility] Last Admin: 10/27/17 13:53 Dose: 4 ml Albuterol/Ipratropium (Duoneb 3 Mg/0.5 Mg (3 Ml) Ud) 3 ml INH RQ6 [facility] Last Admin: 10/27/17 13:53 Dose: 3 ml Benzonatate (Tessalon Perles) 100 mg PO TID [facility] Last Admin: 10/27/17 13:08 Dose: 100 mg Enoxaparin Sodium (Lovenox) 40 mg SC DAILY [facility] Last Admin: 10/27/17 10:11 Dose: 40 mg Piperacillin Sod/Tazobactam Sod (Zosyn 3.375 Gm Iv Premix) 3.375 gm in 50 mls @ 100 mls/hr IVPB Q8H [facility] PRN Reason: Protocol Last Admin: 10/27/17 12:45 Dose: 100 mls/hr Meclizine HCl (Antivert) 25 mg PO Q8 PRN PRN Reason: Dizziness Methylprednisolone (Solu-Medrol) 40 mg IVP Q8H [facility] Last Admin: 10/27/17 08:45 Dose: 40 mg Montelukast Sodium (Singulair) 10 mg PO DAILY [facility] Last Admin: 10/27/17 10:11 Dose: 10 mg Pantoprazole Sodium (Protonix Ec Tab) 40 mg PO DAILY [facility] Last Admin: 10/27/17 10:12 Dose: 40 mg Sitagliptin Phosphate (Januvia) 50 mg PO DAILY [facility] Last Admin: 10/27/17 10:12 Dose: 50 mg Tiotropium [place] (Spiriva) 18 mcg IH RQ24 [facility] Last Admin: 10/27/17 13:54 Dose: Not Given - Labs Labs: 10/26/17 01:17 10/26/17 01:17 - Constitutional Appears: Well - Head Exam Head Exam: ATRAUMATIC, NORMAL INSPECTION, NORMOCEPHALIC - Eye Exam Eye Exam: EOMI, Normal appearance, PERRL Pupil Exam: NORMAL ACCOMODATION, PERRL - ENT Exam ENT Exam: Mucous Membranes Moist, Normal Exam - Neck Exam Neck Exam: Full ROM, Normal Inspection. absent: Lymphadenopathy - Respiratory Exam Respiratory Exam: Decreased Breath Sounds - Cardiovascular Exam Cardiovascular Exam: REGULAR RHYTHM, +S1, +S2 - GI/Abdominal Exam GI & Abdominal Exam: Soft, Diminished Bowel Sounds - Rectal Exam Rectal Exam: Deferred
--- NOTE | 2017-10-27 18:26 | CP.PCM.PN ---
Subjective - Date & Time of Evaluation Date of Evaluation: 10/27/17 Time of Evaluation: 11:00 - Subjective Subjective: Patient seen and examined at bedside. Patient again reports shortness of breath and coughing large amounts of white sputum. Patient still wheezing. Assessment and Plan: 1. COPD Exacerbation - Saturating at 95% on 2L NC - CBC 10/26: WBC 12.4 without left shift - solumedrol - duonebs - spiriva - zosyn - phenergan with codeine 2. Bronchiectasis Objective - Vital Signs/Intake and Output Vital Signs (last 24 hours): Temp Pulse Resp BP Pulse Ox 98.1 F 89 20 120/67 94 L 10/27/17 15:48 10/27/17 16:00 10/27/17 15:48 10/27/17 15:48 10/27/17 15:48 Intake and Output: 10/27/17 10/27/17 06:59 18:59 Intake Total 750 Balance 750 - Medications Medications: Current Medications Acetylcysteine (Acetylcysteine 20%) 4 ml INH RQ6 [facility] Last Admin: 10/27/17 13:53 Dose: 4 ml Albuterol/Ipratropium (Duoneb 3 Mg/0.5 Mg (3 Ml) Ud) 3 ml INH RQ6 [facility] Last Admin: 10/27/17 13:53 Dose: 3 ml Benzonatate (Tessalon Perles) 100 mg PO TID [facility] Last Admin: 10/27/17 17:49 Dose: 100 mg Enoxaparin Sodium (Lovenox) 40 mg SC DAILY [facility] Last Admin: 10/27/17 10:11 Dose: 40 mg Piperacillin Sod/Tazobactam Sod (Zosyn 3.375 Gm Iv Premix) 3.375 gm in 50 mls @ 100 mls/hr IVPB Q8H [facility] PRN Reason: Protocol Last Admin: 10/27/17 12:45 Dose: 100 mls/hr Meclizine HCl (Antivert) 25 mg PO Q8 PRN PRN Reason: Dizziness Methylprednisolone (Solu-Medrol) 40 mg IVP Q8H [facility] Last Admin: 10/27/17 17:10 Dose: 40 mg Montelukast Sodium (Singulair) 10 mg PO DAILY [facility] Last Admin: 10/27/17 10:11 Dose: 10 mg Pantoprazole Sodium (Protonix Ec Tab) 40 mg PO DAILY [facility] Last Admin: 10/27/17 10:12 Dose: 40 mg Sitagliptin Phosphate (Januvia) 50 mg PO DAILY [facility] Last Admin: 10/27/17 10:12 Dose: 50 mg Tiotropium [place] (Spiriva) 18 mcg IH RQ24 [facility] Last Admin: 10/27/17 13:54 Dose: Not Given - Labs Labs: 10/26/17 01:17 10/26/17 01:17 Assessment and Plan (1) COPD exacerbation Status: Acute (2) Bronchiectasis Status: Acute
[2017-10-28] MEDS: Acetylcysteine 20% Inhal Soln (4ml) INH SCH ×4 (01:21→20:04)
[2017-10-28] MEDS: Albuterol-Ipratrop 3 mg / 0.5 (3 ml) UD INH SCH ×5 (01:22→20:04)
[2017-10-28] MEDS: Piperacill/Tazo 3.375gm in Dex 3.375 GM/50 ML BAG IVPB SCH ×3 (03:32→19:47)
[2017-10-28] MEDS: MethylPREDNISolone 40 mg Vial IVP SCH ×2 (08:27→15:15)
[2017-10-28] MEDS: Tiotropium 18 mcg Cap For Inhalation IH SCH (08:36)
[2017-10-28] MEDS: Pantoprazole 40 mg EC Tab PO SCH (09:40)
[2017-10-28] MEDS: Enoxaparin 40 mg Syringe SC SCH (09:40)
--- NOTE | 2017-10-28 16:23 | CP.PCM.PN ---
Subjective - Date & Time of Evaluation Date of Evaluation: 10/28/17 Time of Evaluation: 15:00 - Subjective Subjective: Patient seen and examined at bedside. Patient again reports shortness of breath and coughing large amounts of white sputum. Patient still wheezing. Assessment and Plan: 1. COPD Exacerbation - Saturating at 95% on 2L NC - CBC 10/26: WBC 12.4 without left shift - solumedrol - duonebs - spiriva - phenergan with codeine 2. Bronchiectasis - zosyn Objective - Vital Signs/Intake and Output Vital Signs (last 24 hours): Temp Pulse Resp BP Pulse Ox 98.3 F 99 H 20 109/70 94 L 10/28/17 15:33 10/28/17 15:33 10/28/17 15:33 10/28/17 15:33 10/28/17 15:33 Intake and Output: 10/28/17 10/28/17 06:59 18:59 Intake Total 550 Balance 550 - Medications Medications: Current Medications Acetylcysteine (Acetylcysteine 20%) 4 ml INH RQ6 [facility] Last Admin: 10/28/17 13:50 Dose: 4 ml Albuterol/Ipratropium (Duoneb 3 Mg/0.5 Mg (3 Ml) Ud) 3 ml INH RQ6 [facility] Last Admin: 10/28/17 13:47 Dose: 3 ml Benzonatate (Tessalon Perles) 100 mg PO TID [facility] Last Admin: 10/28/17 13:27 Dose: 100 mg Enoxaparin Sodium (Lovenox) 40 mg SC DAILY [facility] Last Admin: 10/28/17 09:40 Dose: 40 mg Piperacillin Sod/Tazobactam Sod (Zosyn 3.375 Gm Iv Premix) 3.375 gm in 50 mls @ 100 mls/hr IVPB Q8H [facility] PRN Reason: Protocol Last Admin: 10/28/17 12:25 Dose: 100 mls/hr Meclizine HCl (Antivert) 25 mg PO Q8 PRN PRN Reason: Dizziness Methylprednisolone (Solu-Medrol) 40 mg IVP Q8H [facility] Last Admin: 10/28/17 08:27 Dose: 40 mg Montelukast Sodium (Singulair) 10 mg PO DAILY [facility] Last Admin: 10/28/17 09:40 Dose: 10 mg Pantoprazole Sodium (Protonix Ec Tab) 40 mg PO DAILY [facility] Last Admin: 10/28/17 09:40 Dose: 40 mg Sitagliptin Phosphate (Januvia) 50 mg PO DAILY [facility] Last Admin: 10/28/17 09:41 Dose: 50 mg Tiotropium [place] (Spiriva) 18 mcg RQ24 [facility] Last Admin: 10/28/17 08:36 Dose: 18 mcg - Labs Labs: 10/26/17 01:17 10/26/17 01:17 Assessment and Plan (1) COPD exacerbation Status: Acute (2) Bronchiectasis Status: Acute
[2017-10-28] MEDS ORDERED: Potassium Chloride 20 mEq ER Tab PO STA (18:11)
--- NOTE | 2017-10-28 18:11 | CP.PCM.PN ---
Subjective - Date & Time of Evaluation Date of Evaluation: 10/28/17 Time of Evaluation: 08:40 - Subjective Subjective: clinically same Objective - Vital Signs/Intake and Output Vital Signs (last 24 hours): Temp Pulse Resp BP Pulse Ox 98.3 F 99 H 20 109/70 94 L 10/28/17 15:33 10/28/17 16:00 10/28/17 15:33 10/28/17 15:33 10/28/17 15:33 Intake and Output: 10/28/17 10/28/17 06:59 18:59 Intake Total 550 Balance 550 - Medications Medications: Current Medications Acetylcysteine (Acetylcysteine 20%) 4 ml INH RQ6 [facility] Last Admin: 10/28/17 13:50 Dose: 4 ml Albuterol/Ipratropium (Duoneb 3 Mg/0.5 Mg (3 Ml) Ud) 3 ml INH RQ6 [facility] Last Admin: 10/28/17 13:47 Dose: 3 ml Benzonatate (Tessalon Perles) 100 mg PO TID [facility] Last Admin: 10/28/17 13:27 Dose: 100 mg Enoxaparin Sodium (Lovenox) 40 mg SC DAILY [facility] Last Admin: 10/28/17 09:40 Dose: 40 mg Piperacillin Sod/Tazobactam Sod (Zosyn 3.375 Gm Iv Premix) 3.375 gm in 50 mls @ 100 mls/hr IVPB Q8H [facility] PRN Reason: Protocol Last Admin: 10/28/17 12:25 Dose: 100 mls/hr Meclizine HCl (Antivert) 25 mg PO Q8 PRN PRN Reason: Dizziness Methylprednisolone (Solu-Medrol) 40 mg IVP Q8H [facility] Last Admin: 10/28/17 08:27 Dose: 40 mg Montelukast Sodium (Singulair) 10 mg PO DAILY [facility] Last Admin: 10/28/17 09:40 Dose: 10 mg Pantoprazole Sodium (Protonix Ec Tab) 40 mg PO DAILY [facility] Last Admin: 10/28/17 09:40 Dose: 40 mg Sitagliptin Phosphate (Januvia) 50 mg PO DAILY [facility] Last Admin: 10/28/17 09:41 Dose: 50 mg Tiotropium [place] (Spiriva) 18 mcg IH RQ24 [facility] Last Admin: 10/28/17 08:36 Dose: 18 mcg - Labs Labs: 10/26/17 01:17 10/26/17 01:17 - Constitutional Appears: Well - Head Exam Head Exam: ATRAUMATIC, NORMAL INSPECTION, NORMOCEPHALIC - Eye Exam Eye Exam: EOMI, Normal appearance, PERRL Pupil Exam: NORMAL ACCOMODATION, PERRL - ENT Exam ENT Exam: Mucous Membranes Moist, Normal Exam - Neck Exam Neck Exam: Full ROM, Normal Inspection. absent: Lymphadenopathy - Respiratory Exam Respiratory Exam: Decreased Breath Sounds - Cardiovascular Exam Cardiovascular Exam: REGULAR RHYTHM, +S1, +S2 - GI/Abdominal Exam GI & Abdominal Exam: Soft, Diminished Bowel Sounds - Rectal Exam Rectal Exam: Deferred
--- NOTE | 2017-10-28 19:32 | CARD ---
APPROVED REPORT EKG Measurement Heart [id number] <Conclusion> Normal sinus rhythm Possible Left atrial enlargement Left axis deviation Incomplete right bundle branch block Left ventricular hypertrophy Prolonged QT Abnormal ECG
[2017-10-29] MEDS: MethylPREDNISolone 40 mg Vial IVP SCH ×4 (00:29→23:50)
[2017-10-29] MEDS: Acetylcysteine 20% Inhal Soln (4ml) INH SCH ×4 (01:10→19:31)
[2017-10-29] MEDS: Albuterol-Ipratrop 3 mg / 0.5 (3 ml) UD INH SCH ×4 (01:10→19:28)
[2017-10-29] MEDS: Piperacill/Tazo 3.375gm in Dex 3.375 GM/50 ML BAG IVPB SCH ×3 (03:32→19:26)
[2017-10-29] MEDS: Tiotropium 18 mcg Cap For Inhalation IH SCH (08:19)
[2017-10-29 08:26] LABS: BASO % 0.3 % (0.0-2.0); EOS % 0.1 % (0.0-4.0); HEMOGLOBIN 14.7 g/dL (11.0-16.0); LYMPH # 0.7 K/uL (1.0-4.3); MEAN CELL VOLUME 81.8 fL (81.0-99.0); MEAN CORPUSCULAR HEMOGLOBIN 26.8 pg (27.0-31.0); MEAN CORPUSCULAR HGB CONC 32.8 g/dL (33.0-37.0); MEAN PLATELET VOLUME 9.7 fL (7.2-11.7); MONO # 0.5 K/uL (0.0-0.8); MONO % 3.3 % (0.0-10.0); NEUT # 13.3 K/uL (1.8-7.0); NEUT % 91.3 % (50.0-75.0); NRBC % 0.1 % (0.0-2.0); RBC 5.46 Mil/uL (3.80-5.20); RED CELL DISTRIBUTION WIDTH 15.4 % (11.5-14.5); WHITE BLOOD COUNT 14.6 K/uL (4.8-10.8)
[2017-10-29 08:27] LABS: PLATELET COUNT 718 K/uL (130-400)
[2017-10-29 08:58] LABS: ALB/GLOB RATIO 1.4 (1.0-2.1); ALBUMIN 3.9 g/dL (3.5-5.0); ALT/SGPT 16 U/L (9-52); AST/SGOT 17 U/L (14-36); BLOOD UREA NITROGEN 18 mg/dL (7-17); CALCIUM 8.9 mg/dl (8.6-10.4); GFR AFRICAN-AMERICAN > 60; GFR NON-AFRICAN AMERICAN > 60
[2017-10-29 09:51] LABS: LYMPHOCYTE 3 % (20-40); MONOCYTE 2 % (0-10); NEUTROPHIL 95 % (50-75); PLATELET ESTIMATE NORMAL (NORMAL); TOTAL CELLS COUNTED 100
[2017-10-29] MEDS: Enoxaparin 40 mg Syringe SC SCH (10:03)
[2017-10-29] MEDS: Pantoprazole 40 mg EC Tab PO SCH (10:03)
--- NOTE | 2017-10-29 15:57 | CP.PCM.PN ---
Subjective - Date & Time of Evaluation Date of Evaluation: 10/29/17 Time of Evaluation: 10:30 - Subjective Subjective: Patient seen and examined at bedside. Patient again reports shortness of breath and coughing large amounts of white sputum. Patient still wheezing. Assessment and Plan: 1. COPD Exacerbation - Saturating at 95% on 2L NC - CBC 10/29: WBC 14.6, trending up, platelets 718 - solumedrol - duonebs - spiriva - tessalon perles - acetylcysteine Objective - Vital Signs/Intake and Output Vital Signs (last 24 hours): Temp Pulse Resp BP Pulse Ox 98.1 F 95 H 20 136/84 96 10/29/17 07:05 10/29/17 07:57 10/29/17 07:05 10/29/17 07:05 10/29/17 07:05 Intake and Output: 10/29/17 10/29/17 06:59 18:59 Intake Total 200 450 Balance 200 450 - Medications Medications: Current Medications Acetylcysteine (Acetylcysteine 20%) 4 ml INH RQ6 [facility] Last Admin: 10/29/17 13:47 Dose: 4 ml Albuterol/Ipratropium (Duoneb 3 Mg/0.5 Mg (3 Ml) Ud) 3 ml INH RQ6 [facility] Last Admin: 10/29/17 13:46 Dose: 3 ml Benzonatate (Tessalon Perles) 100 mg PO TID [facility] Last Admin: 10/29/17 13:05 Dose: 100 mg Enoxaparin Sodium (Lovenox) 40 mg SC DAILY [facility] Last Admin: 10/29/17 10:03 Dose: 40 mg Piperacillin Sod/Tazobactam Sod (Zosyn 3.375 Gm Iv Premix) 3.375 gm in 50 mls @ 100 mls/hr IVPB Q8H [facility] PRN Reason: Protocol Last Admin: 10/29/17 12:55 Dose: 100 mls/hr Meclizine HCl (Antivert) 25 mg PO Q8 PRN PRN Reason: Dizziness Methylprednisolone (Solu-Medrol) 40 mg IVP Q8H [facility] Last Admin: 10/29/17 08:11 Dose: 40 mg Montelukast Sodium (Singulair) 10 mg PO DAILY [facility] Last Admin: 10/29/17 10:03 Dose: 10 mg Pantoprazole Sodium (Protonix Ec Tab) 40 mg PO DAILY [facility] Last Admin: 10/29/17 10:03 Dose: 40 mg Sitagliptin Phosphate (Januvia) 50 mg PO DAILY [facility] Last Admin: 10/29/17 10:03 Dose: 50 mg Tiotropium [place] (Spiriva) 18 mcg RQ24 [facility] Last Admin: 10/29/17 08:19 Dose: 18 mcg - Labs Labs: 10/29/17 08:15 10/29/17 08:15 Assessment and Plan (1) COPD exacerbation Status: Acute (2) Bronchiectasis Status: Acute
--- NOTE | 2017-10-29 18:34 | CP.PCM.PN ---
Subjective - Date & Time of Evaluation Date of Evaluation: 10/29/17 Time of Evaluation: 07:40 - Subjective Subjective: clinically same Objective - Vital Signs/Intake and Output Vital Signs (last 24 hours): Temp Pulse Resp BP Pulse Ox 97.8 F 89 18 144/76 95 10/29/17 16:04 10/29/17 16:35 10/29/17 16:04 10/29/17 16:04 10/29/17 16:04 Intake and Output: 10/29/17 10/29/17 06:59 18:59 Intake Total 200 450 Balance 200 450 - Medications Medications: Current Medications Acetylcysteine (Acetylcysteine 20%) 4 ml INH RQ6 [facility] Last Admin: 10/29/17 13:47 Dose: 4 ml Albuterol/Ipratropium (Duoneb 3 Mg/0.5 Mg (3 Ml) Ud) 3 ml INH RQ6 [facility] Last Admin: 10/29/17 13:46 Dose: 3 ml Benzonatate (Tessalon Perles) 100 mg PO TID [facility] Last Admin: 10/29/17 17:12 Dose: 100 mg Enoxaparin Sodium (Lovenox) 40 mg SC DAILY [facility] Last Admin: 10/29/17 10:03 Dose: 40 mg Piperacillin Sod/Tazobactam Sod (Zosyn 3.375 Gm Iv Premix) 3.375 gm in 50 mls @ 100 mls/hr IVPB Q8H [facility] PRN Reason: Protocol Last Admin: 10/29/17 12:55 Dose: 100 mls/hr Meclizine HCl (Antivert) 25 mg PO Q8 PRN PRN Reason: Dizziness Methylprednisolone (Solu-Medrol) 40 mg IVP Q8H [facility] Last Admin: 10/29/17 16:19 Dose: 40 mg Montelukast Sodium (Singulair) 10 mg PO DAILY [facility] Last Admin: 10/29/17 10:03 Dose: 10 mg Pantoprazole Sodium (Protonix Ec Tab) 40 mg PO DAILY [facility] Last Admin: 10/29/17 10:03 Dose: 40 mg Sitagliptin Phosphate (Januvia) 50 mg PO DAILY [facility] Last Admin: 10/29/17 10:03 Dose: 50 mg Tiotropium [place] (Spiriva) 18 mcg IH [id number] [facility] Last Admin: 10/29/17 08:19 Dose: 18 mcg - Labs Labs: 10/29/17 08:15 10/29/17 08:15 - Constitutional Appears: Well - Head Exam Head Exam: ATRAUMATIC, NORMAL INSPECTION, NORMOCEPHALIC - Eye Exam Eye Exam: EOMI, Normal appearance, PERRL Pupil Exam: NORMAL ACCOMODATION, PERRL - ENT Exam ENT Exam: Mucous Membranes Moist, Normal Exam - Neck Exam Neck Exam: Full ROM, Normal Inspection. absent: Lymphadenopathy - Respiratory Exam Respiratory Exam: Decreased Breath Sounds - Cardiovascular Exam Cardiovascular Exam: REGULAR RHYTHM, +S1, +S2 - GI/Abdominal Exam GI & Abdominal Exam: Soft, Diminished Bowel Sounds - Rectal Exam Rectal Exam: Deferred
[2017-10-30] MEDS: Albuterol-Ipratrop 3 mg / 0.5 (3 ml) UD INH SCH ×4 (01:56→19:46)
[2017-10-30] MEDS: Acetylcysteine 20% Inhal Soln (4ml) INH SCH ×4 (01:58→19:46)
[2017-10-30] MEDS: Piperacill/Tazo 3.375gm in Dex 3.375 GM/50 ML BAG IVPB SCH ×3 (03:30→19:51)
[2017-10-30] MEDS: MethylPREDNISolone 40 mg Vial IVP SCH ×2 (08:24→16:50)
[2017-10-30] MEDS: Enoxaparin 40 mg Syringe SC SCH (09:43)
[2017-10-30] MEDS: Pantoprazole 40 mg EC Tab PO SCH (09:43)
[2017-10-30] MEDS: Tiotropium 18 mcg Cap For Inhalation IH SCH (10:47)
[2017-10-30 11:32] LABS: BASO % 0.2 % (0.0-2.0); HEMOGLOBIN 14.5 g/dL (11.0-16.0); LYMPH # 0.4 K/uL (1.0-4.3); MEAN CELL VOLUME 82.4 fL (81.0-99.0); MEAN CORPUSCULAR HEMOGLOBIN 26.9 pg (27.0-31.0); MEAN CORPUSCULAR HGB CONC 32.6 g/dL (33.0-37.0); MEAN PLATELET VOLUME 9.8 fL (7.2-11.7); MONO # 0.7 K/uL (0.0-0.8); MONO % 5.5 % (0.0-10.0); NEUT % 91.3 % (50.0-75.0); NRBC % 0.1 % (0.0-2.0); PLATELET COUNT 678 K/uL (130-400); RED CELL DISTRIBUTION WIDTH 15.1 % (11.5-14.5); WHITE BLOOD COUNT 13.1 K/uL (4.8-10.8)
[2017-10-30 11:34] LABS: ALB/GLOB RATIO 1.2 (1.0-2.1); ALBUMIN 3.6 g/dL (3.5-5.0); ALT/SGPT 19 U/L (9-52); AST/SGOT 21 U/L (14-36); BLOOD UREA NITROGEN 21 mg/dL (7-17); CALCIUM 8.7 mg/dl (8.6-10.4); GFR AFRICAN-AMERICAN > 60; GFR NON-AFRICAN AMERICAN > 60
[2017-10-30 11:59] LABS: BANDS 1 % (0-2); LYMPHOCYTE 4 % (20-40); MONOCYTE 4 % (0-10); NEUTROPHIL 91 % (50-75); PLATELET ESTIMATE INCREASED (NORMAL); TOTAL CELLS COUNTED 100
--- NOTE | 2017-10-30 12:14 | CP.PCM.PN ---
Subjective - Date & Time of Evaluation Date of Evaluation: 10/30/17 Time of Evaluation: 10:00 - Subjective Subjective: Patient seen and examined out of bed. Patient is greatly improved and reports that she feels much better. Wheezing still present but improved. Assessment and Plan: 1. COPD Exacerbation - CBC 10/29: WBC 14.6, trending up, platelets 718 - switch to p.o. prednisone - duonebs - spiriva - tessalon perles 2. Bronchiectasis - switch to p.o. antibiotic -Stable from pulmonary standpoint Objective - Vital Signs/Intake and Output Vital Signs (last 24 hours): Temp Pulse Resp BP Pulse Ox 97.8 F 116 H 18 127/76 96 10/30/17 07:05 10/30/17 08:01 10/30/17 07:05 10/30/17 07:05 10/30/17 07:05 Intake and Output: 10/30/17 10/30/17 06:59 18:59 Intake Total 750 Balance 750 - Medications Medications: Current Medications Acetylcysteine (Acetylcysteine 20%) 4 ml INH RQ6 [facility] Last Admin: 10/30/17 07:20 Dose: Not Given Albuterol/Ipratropium (Duoneb 3 Mg/0.5 Mg (3 Ml) Ud) 3 ml INH RQ6 [facility] Last Admin: 10/30/17 07:20 Dose: 3 ml Benzonatate (Tessalon Perles) 100 mg PO TID [facility] Last Admin: 10/30/17 09:43 Dose: 100 mg Enoxaparin Sodium (Lovenox) 40 mg SC DAILY [facility] Last Admin: 10/30/17 09:43 Dose: 40 mg Piperacillin Sod/Tazobactam Sod (Zosyn 3.375 Gm Iv Premix) 3.375 gm in 50 mls @ 100 mls/hr IVPB Q8H [facility] PRN Reason: Protocol Last Admin: 10/30/17 12:10 Dose: 100 mls/hr Meclizine HCl (Antivert) 25 mg PO Q8 PRN PRN Reason: Dizziness Methylprednisolone (Solu-Medrol) 40 mg IVP Q8H [facility] Last Admin: 10/30/17 08:24 Dose: 40 mg Montelukast Sodium (Singulair) 10 mg PO DAILY [facility] Last Admin: 10/30/17 09:43 Dose: 10 mg Pantoprazole Sodium (Protonix Ec Tab) 40 mg PO DAILY [facility] Last Admin: 10/30/17 09:43 Dose: 40 mg Sitagliptin Phosphate (Januvia) 50 mg PO DAILY [facility] Last Admin: 10/30/17 09:42 Dose: 50 mg Tiotropium [place] (Spiriva) 18 mcg IH RQ24 [facility] Last Admin: 10/30/17 10:47 Dose: 18 mcg - Labs Labs: 10/30/17 11:07 10/30/17 11:07 Assessment and Plan (1) COPD exacerbation Status: Acute (2) Bronchiectasis Status: Acute
--- NOTE | 2017-10-30 13:25 | CP.PCM.PN ---
Subjective - Date & Time of Evaluation Date of Evaluation: 10/30/17 Time of Evaluation: 09:25 - Subjective Subjective: Medicine progress note for Dr. Contreras's service Patient seen and examined. Patient states she is feeling better but still has occasional dyspnea. Objective - Vital Signs/Intake and Output Vital Signs (last 24 hours): Temp Pulse Resp BP Pulse Ox 97.8 F 81 18 127/76 96 10/30/17 07:05 10/30/17 12:00 10/30/17 07:05 10/30/17 07:05 10/30/17 07:05 Intake and Output: 10/30/17 10/30/17 06:59 18:59 Intake Total 750 Balance 750 - Medications Medications: Current Medications Acetylcysteine (Acetylcysteine 20%) 4 ml INH RQ6 [facility] Last Admin: 10/30/17 07:20 Dose: Not Given Albuterol/Ipratropium (Duoneb 3 Mg/0.5 Mg (3 Ml) Ud) 3 ml INH RQ6 [facility] Last Admin: 10/30/17 07:20 Dose: 3 ml Benzonatate (Tessalon Perles) 100 mg PO TID [facility] Last Admin: 10/30/17 09:43 Dose: 100 mg Enoxaparin Sodium (Lovenox) 40 mg SC DAILY [facility] Last Admin: 10/30/17 09:43 Dose: 40 mg Piperacillin Sod/Tazobactam Sod (Zosyn 3.375 Gm Iv Premix) 3.375 gm in 50 mls @ 100 mls/hr IVPB Q8H [facility] PRN Reason: Protocol Last Admin: 10/30/17 12:10 Dose: 100 mls/hr Meclizine HCl (Antivert) 25 mg PO Q8 PRN PRN Reason: Dizziness Methylprednisolone (Solu-Medrol) 40 mg IVP Q8H [facility] Last Admin: 10/30/17 08:24 Dose: 40 mg Montelukast Sodium (Singulair) 10 mg PO DAILY [facility] Last Admin: 10/30/17 09:43 Dose: 10 mg Pantoprazole Sodium (Protonix Ec Tab) 40 mg PO DAILY [facility] Last Admin: 10/30/17 09:43 Dose: 40 mg Sitagliptin Phosphate (Januvia) 50 mg PO DAILY [facility] Last Admin: 10/30/17 09:42 Dose: 50 mg Tiotropium [place] (Spiriva) 18 mcg RQ24 [facility] Last Admin: 10/30/17 10:47 Dose: 18 mcg - Labs Labs: 10/30/17 11:07 10/30/17 11:07 - Constitutional Appears: Non-toxic, No Acute Distress - Head Exam Head Exam: ATRAUMATIC, NORMOCEPHALIC - Eye Exam Eye Exam: EOMI - ENT Exam ENT Exam: Mucous Membranes Moist - Respiratory Exam Respiratory Exam: Wheezes (diffuse bilateral inspiratory and expiratory) - Cardiovascular Exam Cardiovascular Exam: +S1, +S2 - GI/Abdominal Exam GI & Abdominal Exam: Soft, Normal Bowel Sounds. absent: Tenderness - Extremities Exam Extremities Exam: Normal Inspection. absent: Pedal Edema - Neurological Exam Neurological Exam: Alert, Awake - Psychiatric Exam Psychiatric exam: Normal Affect - Skin Skin Exam: Warm Assessment and Plan - Assessment and Plan (Free Text) Assessment: COPD Exacerbation with Bronchiectasis Dr. Florentino consulted- help appreciated continue solumedrol 40 q8 duonebs q6 continue zosyn as prophylaxis against pseudomonas singulair 10mg PO daily mucomyst q6 spiriva 18mcg daily tessalon perles TID Vertigo continuemeclizine 25mg PO q8prn Diabetes continue home medications Januvia 50mg PO daily Prophylactic measure protonix 40mg PO daily lovenox 40mg SC daily Management as per Dr. Contreras
[2017-10-30 16:01] VITALS: RESP 20
--- NOTE | 2017-10-30 16:43 | CP.PCM.PN ---
Subjective - Date & Time of Evaluation Date of Evaluation: 10/30/17 Time of Evaluation: 07:40 - Subjective Subjective: clinically same Objective - Vital Signs/Intake and Output Vital Signs (last 24 hours): Temp Pulse Resp BP Pulse Ox 98.0 F 82 20 133/85 95 10/30/17 16:00 10/30/17 16:00 10/30/17 16:00 10/30/17 16:00 10/30/17 16:00 Intake and Output: 10/30/17 10/30/17 06:59 18:59 Intake Total 750 600 Balance 750 600 - Medications Medications: Current Medications Acetylcysteine (Acetylcysteine 20%) 4 ml INH RQ6 [facility] Last Admin: 10/30/17 14:26 Dose: Not Given Albuterol/Ipratropium (Duoneb 3 Mg/0.5 Mg (3 Ml) Ud) 3 ml INH RQ6 [facility] Last Admin: 10/30/17 14:27 Dose: 3 ml Benzonatate (Tessalon Perles) 100 mg PO TID [facility] Last Admin: 10/30/17 14:22 Dose: 100 mg Enoxaparin Sodium (Lovenox) 40 mg SC DAILY [facility] Last Admin: 10/30/17 09:43 Dose: 40 mg Piperacillin Sod/Tazobactam Sod (Zosyn 3.375 Gm Iv Premix) 3.375 gm in 50 mls @ 100 mls/hr IVPB Q8H [facility] PRN Reason: Protocol Last Admin: 10/30/17 12:10 Dose: 100 mls/hr Meclizine HCl (Antivert) 25 mg PO Q8 PRN PRN Reason: Dizziness Methylprednisolone (Solu-Medrol) 40 mg IVP Q8H [facility] Last Admin: 10/30/17 08:24 Dose: 40 mg Montelukast Sodium (Singulair) 10 mg PO DAILY [facility] Last Admin: 10/30/17 09:43 Dose: 10 mg Pantoprazole Sodium (Protonix Ec Tab) 40 mg PO DAILY [facility] Last Admin: 10/30/17 09:43 Dose: 40 mg Sitagliptin Phosphate (Januvia) 50 mg PO DAILY [facility] Last Admin: 10/30/17 09:42 Dose: 50 mg Tiotropium [place] (Spiriva) 18 mcg IH RQ24 [facility] Last Admin: 10/30/17 10:47 Dose: 18 mcg - Labs Labs: 10/30/17 11:07 10/30/17 11:07 - Constitutional Appears: Well - Head Exam Head Exam: ATRAUMATIC, NORMAL INSPECTION, NORMOCEPHALIC - Eye Exam Eye Exam: EOMI, Normal appearance, PERRL Pupil Exam: NORMAL ACCOMODATION, PERRL - ENT Exam ENT Exam: Mucous Membranes Moist, Normal Exam - Neck Exam Neck Exam: Full ROM, Normal Inspection. absent: Lymphadenopathy - Respiratory Exam Respiratory Exam: Decreased Breath Sounds - Cardiovascular Exam Cardiovascular Exam: REGULAR RHYTHM, +S1, +S2 - GI/Abdominal Exam GI & Abdominal Exam: Soft, Diminished Bowel Sounds - Rectal Exam Rectal Exam: Deferred
[2017-10-31] MEDS: MethylPREDNISolone 40 mg Vial IVP SCH ×2 (00:03→08:35)
[2017-10-31] MEDS: Acetylcysteine 20% Inhal Soln (4ml) INH SCH ×3 (01:40→12:59)
[2017-10-31] MEDS: Albuterol-Ipratrop 3 mg / 0.5 (3 ml) UD INH SCH ×3 (01:40→12:59)
[2017-10-31] MEDS: Piperacill/Tazo 3.375gm in Dex 3.375 GM/50 ML BAG IVPB SCH ×2 (04:26→12:38)
[2017-10-31] MEDS: Tiotropium 18 mcg Cap For Inhalation IH SCH (07:10)
[2017-10-31 07:11] LABS: BASO % 0.1 % (0.0-2.0); HEMOGLOBIN 15.3 g/dL (11.0-16.0); LYMPH # 0.6 K/uL (1.0-4.3); LYMPH % 4.3 % (20.0-40.0); MEAN CELL VOLUME 81.9 fL (81.0-99.0); MEAN CORPUSCULAR HEMOGLOBIN 26.8 pg (27.0-31.0); MEAN CORPUSCULAR HGB CONC 32.8 g/dL (33.0-37.0); MEAN PLATELET VOLUME 9.4 fL (7.2-11.7); MONO # 0.5 K/uL (0.0-0.8); MONO % 3.3 % (0.0-10.0); NEUT # 13.1 K/uL (1.8-7.0); NEUT % 92.3 % (50.0-75.0); PLATELET COUNT 754 K/uL (130-400); RED CELL DISTRIBUTION WIDTH 15.2 % (11.5-14.5); WHITE BLOOD COUNT 14.2 K/uL (4.8-10.8)
[2017-10-31 08:05] VITALS: BP 113/65; TEMP 98.1; O2SAT 97
[2017-10-31 08:07] LABS: ALB/GLOB RATIO 1.3 (1.0-2.1); ALBUMIN 4.1 g/dL (3.5-5.0); ALT/SGPT 14 U/L (9-52); AST/SGOT 34 U/L (14-36); BLOOD UREA NITROGEN 21 mg/dL (7-17); GFR AFRICAN-AMERICAN > 60; GFR NON-AFRICAN AMERICAN > 60
[2017-10-31 09:19] LABS: LYMPHOCYTE 5 % (20-40); MONOCYTE 3 % (0-10); NEUTROPHIL 91 % (50-75); PLATELET ESTIMATE INCREASED (NORMAL); REACTIVE LYMPHOCYTES 1 % (0-0); TOTAL CELLS COUNTED 100
[2017-10-31] MEDS: Pantoprazole 40 mg EC Tab PO SCH (09:39)
[2017-10-31] MEDS: Enoxaparin 40 mg Syringe SC SCH (09:39)
[2017-10-31 10:51] VITALS: PULSE 83
--- NOTE | 2017-10-31 13:49 | CP.PCM.PN ---
Subjective - Date & Time of Evaluation Date of Evaluation: 10/31/17 Time of Evaluation: 13:46 - Subjective Subjective: PGY [address] Contreras Pt seen and examined at bedside. No acute events overnight. pt denies having any SOB, abd pain, N/V/D/c, F/C, CP. Pt is resting comfortably in bed. Objective - Vital Signs/Intake and Output Vital Signs (last 24 hours): Temp Pulse Resp BP Pulse Ox 98.1 F 83 20 113/65 97 10/31/17 07:05 10/31/17 07:11 10/31/17 07:05 10/31/17 07:05 10/31/17 07:05 Intake and Output: 10/31/17 10/31/17 06:59 18:59 Intake Total 350 Balance 350 - Medications Medications: Current Medications Acetaminophen (Tylenol 325mg Tab) 650 mg PO Q6 PRN PRN Reason: Pain, Mild (1-3) Last Admin: 10/31/17 09:38 Dose: 650 mg Acetylcysteine (Acetylcysteine 20%) 4 ml INH RQ6 [facility] Last Admin: 10/31/17 12:59 Dose: Not Given Albuterol/Ipratropium (Duoneb 3 Mg/0.5 Mg (3 Ml) Ud) 3 ml INH RQ6 [facility] Last Admin: 10/31/17 12:59 Dose: 3 ml Benzonatate (Tessalon Perles) 100 mg PO TID [facility] Last Admin: 10/31/17 09:38 Dose: 100 mg Enoxaparin Sodium (Lovenox) 40 mg SC DAILY [facility] Last Admin: 10/31/17 09:39 Dose: 40 mg Meclizine HCl (Antivert) 25 mg PO Q8 PRN PRN Reason: Dizziness Last Admin: 10/31/17 09:38 Dose: 25 mg Methylprednisolone (Solu-Medrol) 40 mg IVP Q8H [facility] Last Admin: 10/31/17 08:35 Dose: 40 mg Montelukast Sodium (Singulair) 10 mg PO DAILY [facility] Last Admin: 10/31/17 09:38 Dose: 10 mg Pantoprazole Sodium (Protonix Ec Tab) 40 mg PO DAILY [facility] Last Admin: 10/31/17 09:39 Dose: 40 mg Sitagliptin Phosphate (Januvia) 50 mg PO DAILY [facility] Last Admin: 10/31/17 09:38 Dose: 50 mg Tiotropium [place] (Spiriva) 18 mcg IH RQ24 [facility] Last Admin: 10/31/17 07:10 Dose: 18 mcg - Labs Labs: 10/31/17 07:01 10/31/17 07:01 - Constitutional Appears: Non-toxic, No Acute Distress - Head Exam Head Exam: ATRAUMATIC - ENT Exam ENT Exam: Mucous Membranes Moist - Respiratory Exam Respiratory Exam: Clear to Ausculation Bilateral. absent: Accessory Muscle Use , Rales, Rhonchi, Wheezes, Respiratory Distress - Cardiovascular Exam Cardiovascular Exam: REGULAR RHYTHM, +S1, +S2. absent: Gallop, Rubs, Murmur - GI/Abdominal Exam GI & Abdominal Exam: Soft, Normal Bowel Sounds. absent: Distended, Firm, Guarding, Rigid, Tenderness, Organomegaly - Extremities Exam Extremities Exam: absent: Pedal Edema, Tenderness - Neurological Exam Neurological Exam: Alert, Awake, Oriented x3 - Psychiatric Exam Psychiatric exam: Normal Affect, Normal Mood - Skin Skin Exam: Dry, Intact, Normal Color, Warm Assessment and Plan - Assessment and Plan (Free Text) Assessment: COPD Exacerbation with Bronchiectasis Dr. Florentino consulted- help appreciated continue solumedrol 40 q8 duonebs q6 continue zosyn as prophylaxis against pseudomonas singulair 10mg PO daily mucomyst q6 spiriva 18mcg daily tessalon perles TID Vertigo continue meclizine 25mg PO q8prn Diabetes continue home medications Januvia 50mg PO daily Prophylactic measure protonix 40mg PO daily lovenox 40mg SC daily Management as per Dr. Contreras Patient is adamant about leaving the hospital. Patient became agitated and Pat Zimmerman was called. Patient was discharged by the Nurse Practitioner.
--- NOTE | 2017-10-31 13:55 | CP.PCM.PN ---
Subjective - Date & Time of Evaluation Date of Evaluation: 10/31/17 Time of Evaluation: 13:48 - Subjective Subjective: WE[employer] PORTAL DEVELOPER NOTIFIED BY ABBEY HAY THAT PT WAS TOLD THIS MORNING BY DR. GLOVER THAT SHE WAS D/C TODAY, HOWEVER, SHE IS GETTING VERY UPSET THERE IS STILL NO D/C ORDER. MED RESIDENT WAITING FOR DR. Jabari GARCIA TO SEE PT WITH HER DURING ROUNDS. PT IS WALKING IN THE HALLWAY YELLING AND CURSING AT THE STAFF. NO SOB, COUGH NOTED, SPEAKING IN FULL SENTENCES. WEB PORTAL DEVELOPER PLACED D/C ORDER AND INFORMED RESIDENT, DR. SHEARER. 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 I NOTIFIED DR. Jabari GARCIA OF THIS WELL. NO FURTHER ORDERS. Objective - Vital Signs/Intake and Output Vital Signs (last 24 hours): Temp Pulse Resp BP Pulse Ox 98.1 F 83 20 113/65 97 10/31/17 07:05 10/31/17 07:11 10/31/17 07:05 10/31/17 07:05 10/31/17 07:05 Intake and Output: 10/31/17 10/31/17 06:59 18:59 Intake Total 350 Balance 350 - Medications Medications: Current Medications Acetaminophen (Tylenol 325mg Tab) 650 mg PO Q6 PRN PRN Reason: Pain, Mild (1-3) Last Admin: 10/31/17 09:38 Dose: 650 mg Acetylcysteine (Acetylcysteine 20%) 4 ml INH RQ6 [facility] Last Admin: 10/31/17 12:59 Dose: Not Given Albuterol/Ipratropium (Duoneb 3 Mg/0.5 Mg (3 Ml) Ud) 3 ml INH RQ6 [facility] Last Admin: 10/31/17 12:59 Dose: 3 ml Benzonatate (Tessalon Perles) 100 mg PO TID [facility] Last Admin: 10/31/17 09:38 Dose: 100 mg Enoxaparin Sodium (Lovenox) 40 mg SC DAILY [facility] Last Admin: 10/31/17 09:39 Dose: 40 mg Meclizine HCl (Antivert) 25 mg PO Q8 PRN PRN Reason: Dizziness Last Admin: 10/31/17 09:38 Dose: 25 mg Methylprednisolone (Solu-Medrol) 40 mg IVP Q8H [facility] Last Admin: 10/31/17 08:35 Dose: 40 mg Montelukast Sodium (Singulair) 10 mg PO DAILY [facility] Last Admin: 10/31/17 09:38 Dose: 10 mg Pantoprazole Sodium (Protonix Ec Tab) 40 mg PO DAILY [facility] Last Admin: 10/31/17 09:39 Dose: 40 mg Sitagliptin Phosphate (Januvia) 50 mg PO DAILY [facility] Last Admin: 10/31/17 09:38 Dose: 50 mg Tiotropium [place] (Spiriva) 18 mcg RQ24 [facility] Last Admin: 10/31/17 07:10 Dose: 18 mcg - Labs Labs: 10/31/17 07:01 10/31/17 07:01
--- NOTE | 2017-10-31 13:58 | CP.PCM.PN ---
Subjective - Date & Time of Evaluation Date of Evaluation: 10/31/17 Time of Evaluation: 08:40 - Subjective Subjective: Patient seen and examined out of bed. Patient is greatly improved and reports only some dizziness and an episode of back pain last night. Wheezing still present but improved, breathing greatly improved. Clear for discharge from a pulmonary standpoint. Assessment and Plan: 1. COPD Exacerbation - Saturating at 95% on 2L NC - CBC 10/29: WBC 14.2 - solumedrol switch to PO prednisone for discharge - duonebs - spiriva - tesjulianna de 2. Bronchiectasis - zosyn finished - vest therapy Objective - Vital Signs/Intake and Output Vital Signs (last 24 hours): Temp Pulse Resp BP Pulse Ox 98.1 F 83 20 113/65 97 10/31/17 07:05 10/31/17 07:11 10/31/17 07:05 10/31/17 07:05 10/31/17 07:05 Intake and Output: 10/31/17 10/31/17 06:59 18:59 Intake Total 350 Balance 350 - Labs Labs: 10/31/17 07:01 10/31/17 07:01 Assessment and Plan (1) COPD exacerbation Status: Acute (2) Bronchiectasis Status: Acute
--- NOTE | 2017-10-31 19:24 | CP.PCM.PN ---
Subjective - Date & Time of Evaluation Date of Evaluation: 10/31/17 Objective - Vital Signs/Intake and Output Vital Signs (last 24 hours): Temp Pulse Resp BP Pulse Ox 98.1 F 83 20 113/65 97 10/31/17 07:05 10/31/17 07:11 10/31/17 07:05 10/31/17 07:05 10/31/17 07:05 Intake and Output: 10/31/17 11/01/17 18:59 06:59 Intake Total 930 Balance 930 - Labs Labs: 10/31/17 07:01 10/31/17 07:01
== END 2017-10-31 13:55 | disposition home or self-care (01) | DRG 192 ==
LOC: C.ER 00:30 → C.5S 02:08 → UNDODISIN 10-31 13:55
PROVIDERS: ADMIT Internal Medicine Nephrology; ATTEND Internal Medicine Nephrology
DX: J44.1 Chronic obstructive pulmonary disease with (acute) exacerbation (principal); I10 Essential (primary) hypertension; E11.9 Type 2 diabetes mellitus without complications; F17.210 Nicotine dependence, cigarettes, uncomplicated; R42 Dizziness and giddiness

== ENCOUNTER 2018-02-19 09:55 | Inpatient (IN) | payer MEDICARE, MEDICAID ==
[2018-02-19 09:59] VITALS: BMI 26.5
[2018-02-19] MEDS: Albuterol-Ipratrop 3 mg / 0.5 (3 ml) UD IH SCH ×2 (11:12→11:28)
[2018-02-19] MEDS ORDERED: Albuterol-Ipratrop 3 mg / 0.5 (3 ml) UD ONE ×2 (11:12→14:49)
[2018-02-19 11:14] LABS: BASO # 0.1 K/uL (0.0-0.2); EOS # 0.9 K/uL (0.0-0.7); EOS % 10.9 % (0.0-4.0); HEMOGLOBIN 14.5 g/dL (11.0-16.0); LYMPH # 1.6 K/uL (1.0-4.3); LYMPH % 18.3 % (20.0-40.0); MEAN CORPUSCULAR HEMOGLOBIN 27.6 pg (27.0-31.0); MEAN CORPUSCULAR HGB CONC 32.8 g/dL (33.0-37.0); MEAN PLATELET VOLUME 9.6 fL (7.2-11.7); MONO # 0.7 K/uL (0.0-0.8); MONO % 7.9 % (0.0-10.0); NEUT # 5.3 K/uL (1.8-7.0); NEUT % 61.9 % (50.0-75.0); RBC 5.26 Mil/uL (3.80-5.20); RED CELL DISTRIBUTION WIDTH 15.1 % (11.5-14.5); WHITE BLOOD COUNT 8.6 K/uL (4.8-10.8)
[2018-02-19 11:15] LABS: MEAN CELL VOLUME 83.9 fL (81.0-99.0)
[2018-02-19 11:33] LABS: ALB/GLOB RATIO 1.5 (1.0-2.1); ALBUMIN 4.1 g/dL (3.5-5.0); ALT/SGPT 26 U/L (9-52); AST/SGOT 23 U/L (14-36); BLOOD UREA NITROGEN 8 mg/dL (7-17); CALCIUM 8.8 mg/dl (8.6-10.4); GFR AFRICAN-AMERICAN > 60; GFR NON-AFRICAN AMERICAN > 60
[2018-02-19 11:44] LABS: B-TYPE NATRIURETIC PEPTIDE 315 pg/mL (0-900)
--- NOTE | 2018-02-19 12:08 | RAD ---
Date of service: 02/19/2018 PROCEDURE: CHEST RADIOGRAPH, 1 VIEW HISTORY: SOB COMPARISON: 10/26/2017. Single-view chest. 05/14/2017 CT thorax FINDINGS: LUNGS: Chronic changes right upper lobe. PLEURA: No pneumothorax or pleural fluid seen. CARDIOVASCULAR: No radiographic findings to suggest acute or significant cardiovascular disease. OSSEOUS STRUCTURES: No significant abnormalities. VISUALIZED UPPER ABDOMEN: Normal. OTHER FINDINGS: None. IMPRESSION: No active disease.No significant interval change compared to the prior examination(s).
--- NOTE | 2018-02-19 12:53 | C.PDOC ---
History Of Present Illness 72-year-old female, PMHx includes COPD, presents to the emergency department with complaints of three-day duration of shortness of breath, wheezing and right sided chest pain. Patient notes pain is typical when he develops shortness of breath. He denies any abdominal pain, nausea/vomiting, or any other associated symptoms. No other complaints at this time. Time Seen by Provider: 02/19/18 10:56 Chief Complaint (Nursing): Shortness Of Breath History Per: Patient History/Exam Limitations: no limitations Current Symptoms Are (Timing): Still Present Past Medical History Reviewed: Historical Data, Nursing Documentation, Vital Signs Vital Signs: Last Vital Signs Temp 98.2 F 02/19/18 14:01 Pulse 84 02/19/18 14:01 Resp 24 02/19/18 14:01 BP 122/7 L 02/19/18 14:01 Pulse Ox 93 L 02/19/18 14:01 - Medical History PMH: Arthritis, Asthma, COPD, Diabetes, HTN Denies: Chronic Kidney Disease Family History: States: No Known Family Hx - Social History Hx Tobacco Use: Yes (Last use 3 days ago) Hx Alcohol Use: No Hx Substance Use: No - Immunization History Hx Tetanus Toxoid Vaccination: No Hx Influenza Vaccination: No Hx Pneumococcal Vaccination: No Review Of Systems Constitutional: Negative for: Fever, Chills Cardiovascular: Positive for: Chest Pain Respiratory: Positive for: Cough, Shortness of Breath, Wheezing Gastrointestinal: Negative for: Nausea, Vomiting Musculoskeletal: Negative for: Neck Pain, Back Pain Neurological: Negative for: Weakness, Numbness, Headache, Dizziness Physical Exam - Physical Exam Appears: Non-toxic, No Acute Distress Skin: Normal Color, Warm, Dry, No Rash Head: Atraumatic, Normacephalic Eye(s): bilateral: Normal Inspection, PERRL, EOMI Nose: Normal Oral Mucosa: Moist Lips: Normal Appearing Neck: Normal ROM Chest: Symmetrical Cardiovascular: Rhythm Regular, No Murmur Respiratory: No Decreased Breath Sounds, No Accessory Muscle Use, Rales, Wheezing (R>L) Gastrointestinal/Abdominal: Soft, No Tenderness Extremity: Normal ROM, No Pedal Edema, No Deformity, No Swelling Neurological/Psych: Oriented x3, Normal Speech ED Course And Treatment - Laboratory Results Result Diagrams: 02/19/18 11:10 02/19/18 11:10 O2 Sat by Pulse Oximetry: 93 Pulse Ox Interpretation: Abnormal Medical Decision Making Medical Decision Making: Plan: * EKG * Bloodwork * Chest XR * Duoneb * Reassess and Disposition Patient improving, but still with chest tightness and wheezing. Will hospitalize as Obs for one day. Disposition Counseled Patient/Family Regarding: Studies Performed, Diagnosis - Disposition Disposition: HOSPITALIZED Disposition Time: 16:17 Condition: STABLE Forms: [facility] (Sami) - POA Present On Arrival: None - Clinical Impression Clinical Impression: Asthma, Respiratory distress - Scribe Statement The provider has reviewed the documentation as recorded by the Scribe (Rohan Owen) All medical record entries made by the Scribe were at my direction and personally dictated by me. I have reviewed the chart and agree that the record accurately reflects my personal performance of the history, physical exam, medical decision making, and the department course for this patient. I have also personally directed, reviewed, and agree with the discharge instructions and disposition. Decision To Admit - Pt Status Changed To: Hospital Disposition Of: Observation - . Bed Request Type: Regular Patient Diagnosis: Asthma, Respiratory distress
[2018-02-19] MEDS ORDERED: Albuterol-Ipratrop 3 mg / 0.5 (3 ml) UD IH SCH (15:00)
[2018-02-19 17:54] VITALS: RESP 20
[2018-02-19] MEDS ORDERED: Dextrose 50% SYRINGE Inj (50 ml) IV PRN (18:37)
[2018-02-19] MEDS ORDERED: Glucagon Recombinant 1 mg Inj IM PRN (18:37)
--- NOTE | 2018-02-19 20:11 | CP.PCM.CON ---
History of Present Illness - History of Present Illness History of Present Illness: I was asked to see patient by Dr Jabari Contreras Patient is a 72 year old male female with PMH HTn, hypercholesterolemia DM and COPD who presents with dyspnea. The patient has dyspnea at rest. She noted cough and associated chest pain. Review of Systems - Constitutional Constitutional: absent: As Per HPI, Anorexia, Chills, Daytime Sleepiness, Excessive Sweating, Fatigue, Fever, Frequent Falls, Headache, Increased Appetite , Lethargy, Malaise, Night Sweats, Snoring, Sleep Apnea, Weight Gain, Weight Loss, Weakness, Other - EENT Eyes: absent: As Per HPI, Blind Spots, Blurred Vision, Change in Vision, Decreased Night Vision, Diplopia, Discharge, Dry Eye, Exophthalmos, Floaters, Irritation, Itchy Eyes, Loss of Peripheral Vision, Pain, Photophobia, Requires Corrective Lenses, Sees Flashes, Spots in Vision, Tunnel Vision, Other Visual Disturbances, Loss of Vision, Other Ears: absent: As Per HPI, Decreased Hearing, Ear Discharge, Ear Pain, Tinnitus, Abnormal Hearing, Disequilibrium, Dizziness, Other Nose/Mouth/Throat: absent: As Per HPI, Epistaxis, Nasal Congestion, Nasal Discharge, Nasal Obstruction, Nasal Trauma, Nose Pain, Post Nasal Drip, Sinus Pain, Sinus Pressure, Bleeding Gums, Change in Voice, Dental Pain, Dry Mouth, Dysphagia, Halitosis, Hoarsness, Lip Swelling, Mouth Lesions, Mouth Pain, Odynophagia, Sore Throat, Throat Swelling, Tongue Swelling, Facial Pain, Neck Pain, Neck Mass, Other - Breasts Breasts: absent: As Per HPI, Change in Shape, Mass, Pain, Nipple Discharge, Nipple Inversion, Skin Changes, Swelling, Other - Cardiovascular Cardiovascular: absent: As Per HPI, Acrocyanosis, Chest Pain, Chest Pain at Rest , Chest Pain with Activity, Claudication, Diaphoresis, Dyspnea, Dyspnea on Exertion, Edema, Irregular Heart Rhythm, Pain Radiating to Arm/Neck/Jaw, Leg Edema, Leg Ulcers, Lightheadedness, Orthopnea, Palpitations, Paroxysmal Nocturnal Dyspnea, Pedal Edema, Radiating Pain, Rapid Heart Rate, Slow Heart Rate, Syncope, Other - Respiratory Respiratory: Cough, Dyspnea - Gastrointestinal Gastrointestinal: absent: As Per HPI, Abdominal Pain, Belching, Bloating, Change in Bowel Habits, Change in Stool Character, Coffee Ground Emesis, Constipation, Cramping, Diarrhea, Dyspepsia, Dysphagia, Early Satiety, Excessive Flatus, Fecal Incontinence, Heartburn, Hematemesis, Hematochezia, Loose Stools, Melena, Nausea, Odynophagia, Temesmus, Vomiting, Other - Genitourinary Genitourinary: absent: As Per HPI, Change in Urinary Stream, Difficulty Urinating, Dysuria, Flank Pain, Hematuria, Pyuria, Nocturia, Urinary Incontinence, Urinary Frequency, Urinary Hesitance, Urinary Urgency, Voiding Freq/Small Amts, Freq UTI, Hx Renal/Bladder Calculi, Hx /Renal Surgery, Bladder Distension, Other - Musculoskeletal Musculoskeletal: absent: As Per HPI, Abnormal Gait, Arthralgias, Atrophy, Back Pain, Deformity, Joint Swelling, Limited Range of Motion, Loss of Height, Muscle Cramps, Muscle Weakness, Myalgias, Neck Pain, Numbness, Radiating Pain into Limb, Stiffness, Tingling, Other - Integumentary Integumentary: absent: As Per HPI, Acne, Alopecia, Bleeding Lesions, Change in Hair, Change in Nails, Change in Pigmentation, Changing Lesions, Dry Skin, Erythema, Furuncle, Hirsutism, Lesions, New Lesions, Non-Healing Lesions, Photosensitivity, Pruritus, Rash, Skin Pain, Skin Ulcer, Sores, Striae, Swelling , Unusual Bruising, Wounds, Jaundice, Other - Neurological Neurological: absent: As Per HPI, Abnormal Gait, Abnormal Hearing, Abnormal Movements, Abnormal Speech, Behavioral Changes, Burning Sensations, Confusion, Convulsions, Disequilibrium, Dizziness, Numbness, Focal Weakness, Frequent Falls , Headaches, Lack of Coordination, Loss of Vision, Memory Loss, Paresthesias, Radicular Pain, Restless Legs, Sensory Deficit, Syncope, Tingling, Tremor, Vertigo, Weakness, Other Visual Disturbances, Other - Psychiatric Psychiatric: absent: As Per HPI, Abnormal Sleep Pattern, Anhedonia, Anxiety, Auditory Hallucinations, Behavioral Changes, Change in Appetite, Change in Libido, Confusion, Depression, Difficulty Concentrating, Hallucinations, Homicidal Ideation, Hopelessness, Irritability, Memory Loss, Mood Swings, Panic Attacks, Paranoia, Suicidal Ideation, Visual Hallucinations, Tactile Hallucinations, Other - Endocrine Endocrine: absent: As Per HPI, Change in Body Appearance, Change in Libido, Cold Intolorance, Deepening of Voice, Excessive Sweating, Fatigue, Flushing, Heat Intolorance, Increase in Ring/Shoe/Hat Size, Palpitations, Polydipsia, Polyphagia, Polyuria, Other - Hematologic/Lymphatic Hematologic: absent: As Per HPI, Easy Bleeding, Easy Bruising, Lymphadenopathy, Other Past Patient History - Infectious Disease Hx of Infectious Diseases: None - Past Medical History & Family History Past Medical History?: Yes - Past Social History Smoking Status: Former Smoker - CARDIAC Hx Hypertension: Yes - PULMONARY Hx Asthma: Yes Hx Chronic Obstructive Pulmonary Disease (COPD): Yes - NEUROLOGICAL Hx Neurological Disorder: No - HEENT Hx HEENT Problems: Yes Other/Comment: USES GLASSES - RENAL Hx Chronic Kidney Disease: No - ENDOCRINE/METABOLIC Hx Endocrine Disorders: Yes Hx Diabetes Mellitus Type 2: Yes - HEMATOLOGICAL/ONCOLOGICAL Hx Blood Disorders: No - INTEGUMENTARY Hx Dermatological Problems: No - MUSCULOSKELETAL/RHEUMATOLOGICAL Hx Arthritis: Yes - GASTROINTESTINAL Hx Gastrointestinal Disorders: No - GENITOURINARY/GYNECOLOGICAL Hx Genitourinary Disorders: No - PSYCHIATRIC Hx Substance Use: No - SURGICAL HISTORY Hx Surgeries: Yes Hx Cardiac Catheterization: Yes (2015) - ANESTHESIA Hx Anesthesia: Yes Hx Anesthesia Reactions: No Hx Malignant Hyperthermia: No Meds Allergies/Adverse Reactions: Allergies Allergy/AdvReac Type Severity Reaction Status Date / Time moxifloxacin HCl Allergy Intermediate RASH Verified 02/19/18 09:58 [From Avelox] azithromycin AdvReac ITCHING Verified 02/19/18 09:58 - Medications Medications: Current Medications Albuterol/Ipratropium (Duoneb 3 Mg/0.5 Mg (3 Ml) Ud) 3 ml INH RQ6 [facility] Budesonide (Pulmicort Respules) 0.5 mg INH RQ12 [facility] Dextrose (Dextrose 50% Inj) 0 ml IV STAT PRN; Protocol PRN Reason: Hypoglycemia Protocol Dextrose (Glutose 15) 0 gm PO ONCE PRN; Protocol PRN Reason: Hypoglycemia Protocol Enoxaparin Sodium (Lovenox) 40 mg SC DAILY [facility] Glucagon (Glucagen Diagnostic Kit) 0 mg IM STAT PRN; Protocol PRN Reason: Hypoglycemia Protocol Dextrose (Dextrose 5% In Water 1000 Ml) 1,000 mls @ 0 mls/hr IV .Q0M PRN; Protocol; Per Protocol PRN Reason: Hypoglycemia Protocol Insulin Aspart (Novolog) 0 unit SC ACHS [facility] PRN Reason: Protocol Methylprednisolone (Solu-Medrol) 40 mg IVP Q8 [facility] Sitagliptin Phosphate (Januvia) 50 mg PO DAILY [facility] Physical Exam - Constitutional Appears: Non-toxic - Head Exam Head Exam: NORMAL INSPECTION - Eye Exam Eye Exam: Normal appearance - ENT Exam ENT Exam: Mucous Membranes Moist - Neck Exam Neck exam: Positive for: Full Rom - Respiratory Exam Respiratory Exam: Decreased Breath Sounds, Wheezes - Cardiovascular Exam Cardiovascular Exam: REGULAR RHYTHM - GI/Abdominal Exam GI & Abdominal Exam: Normal Bowel Sounds - Rectal Exam Rectal Exam: Deferred - Extremities Exam Extremities exam: Negative for: pedal edema - Back Exam Back exam: NORMAL INSPECTION - Neurological Exam Neurological exam: Alert, Oriented x3 - Psychiatric Exam Psychiatric exam: Normal Affect - Skin Skin Exam: Normal Color Results - Vital Signs Recent Vital Signs: Last Vital Signs Temp 98.5 F 02/19/18 17:40 Pulse 94 H 02/19/18 17:40 Resp 20 02/19/18 17:40 BP 146/75 02/19/18 17:40 Pulse Ox 94 L 02/19/18 17:40 - Labs Result Diagrams: 02/19/18 11:10 02/19/18 11:10 Labs: Laboratory Results - last 24 hr 02/19/18 02/19/18 11:10 11:10 WBC 8.6 RBC 5.26 H Hgb 14.5 Hct 44.2 MCV 83.9 D MCH 27.6 MCHC 32.8 L RDW 15.1 H Plt Count 638 H D MPV 9.6 Neut % (Auto) 61.9 Lymph % (Auto) 18.3 L [place] % (Auto) 7.9 Eos % (Auto) 10.9 H Baso % (Auto) 1.0 Neut # (Auto) 5.3 Lymph # (Auto) 1.6 [place] # (Auto) 0.7 Eos # (Auto) 0.9 H Baso # (Auto) 0.1 Differential Comment Sodium 145 Potassium 3.8 Chloride 104 Carbon Dioxide 30 Anion Gap 16 BUN 8 Creatinine 0.6 L Est GFR ( Amer) > 60 Est GFR (Non-Af Amer) > 60 Random Glucose 91 Calcium 8.8 Total Bilirubin 0.6 AST 23 ALT 26 Alkaline Phosphatase 61 Troponin I < 0.0120 NT-Pro-B Natriuret Pep 315 Total Protein 6.8 Albumin 4.1 Globulin 2.8 Albumin/Globulin Ratio 1.5 - EKG Data EKG Interpreted by: Myself EKG shows normal: Sinus rhythm Assessment & Plan (1) COPD exacerbation Assessment and Plan: nebulizer therapy Status: Acute (2) Dyspnea Assessment and Plan: recommend therapy for COPD. recommend outpatient stress test Status: Acute (3) Hypertension Assessment and Plan: blood presusre control. Status: Acute
[2018-02-19] MEDS: Albuterol-Ipratrop 3 mg / 0.5 (3 ml) UD INH SCH (20:33)
[2018-02-19] MEDS: Budesonide 0.5 mg/2 ml Inhal Susp UD INH SCH (20:33)
[2018-02-19] MEDS: (Novolog) Insulin Aspart, Recombinant 100 u/ml 10 ml vial SC SCH (21:35)
[2018-02-19] MEDS: MethylPREDNISolone 40 mg Vial IVP SCH (21:50)
[2018-02-20] MEDS: Albuterol-Ipratrop 3 mg / 0.5 (3 ml) UD INH SCH ×4 (01:29→20:21)
[2018-02-20] MEDS: MethylPREDNISolone 40 mg Vial IVP SCH ×3 (05:30→21:07)
[2018-02-20 06:33] LABS: BASO % 0.1 % (0.0-2.0); HEMOGLOBIN 14.6 g/dL (11.0-16.0); LYMPH % 8.7 % (20.0-40.0); MEAN CORPUSCULAR HEMOGLOBIN 27.6 pg (27.0-31.0); MEAN CORPUSCULAR HGB CONC 32.9 g/dL (33.0-37.0); MEAN PLATELET VOLUME 9.6 fL (7.2-11.7); MONO # 0.3 K/uL (0.0-0.8); MONO % 2.5 % (0.0-10.0); NEUT % 88.7 % (50.0-75.0); NRBC % 0.1 % (0.0-2.0); PLATELET COUNT 659 K/uL (130-400); RBC 5.29 Mil/uL (3.80-5.20); RED CELL DISTRIBUTION WIDTH 14.9 % (11.5-14.5); WHITE BLOOD COUNT 11.3 K/uL (4.8-10.8)
[2018-02-20 06:54] LABS: ALB/GLOB RATIO 1.4 (1.0-2.1); ALBUMIN 4.2 g/dL (3.5-5.0); ALT/SGPT 21 U/L (9-52); AST/SGOT 22 U/L (14-36); BLOOD UREA NITROGEN 13 mg/dL (7-17); CALCIUM 9.7 mg/dl (8.6-10.4); GFR AFRICAN-AMERICAN > 60; GFR NON-AFRICAN AMERICAN > 60
[2018-02-20] MEDS: Budesonide 0.5 mg/2 ml Inhal Susp UD INH SCH ×2 (08:13→20:21)
[2018-02-20] MEDS: (Novolog) Insulin Aspart, Recombinant 100 u/ml 10 ml vial SC SCH ×4 (08:14→21:10)
[2018-02-20 09:28] LABS: ANISOCYTOSIS SLIGHT; BANDS 2 % (0-2); LARGE PLATELETS PRESENT; LYMPHOCYTE 8 % (20-40); MONOCYTE 1 % (0-10); NEUTROPHIL 89 % (50-75); PLATELET ESTIMATE INCREASED (NORMAL); TOTAL CELLS COUNTED 100
[2018-02-20] MEDS: Enoxaparin 40 mg Syringe SC SCH (09:49)
[2018-02-20] MEDS: Promethazine DM 6.25 mg-15 mg/5 ml Syrup PO PRN ×2 (10:34→21:04)
--- NOTE | 2018-02-20 11:14 | CP.PCM.CON ---
History of Present Illness - History of Present Illness History of Present Illness: reason for consultation: shortness of breath Rupal De Leon is a 71 y/o F with a PMHx of Asthma/ COPD,extensive bronchiectasis Diabetes and HTN who presents with SOB. Patient on home oxygen and tried her nebulizer which did not help.. Pt has 40 year pack smoking history Patient was seen and examined at bedside. Patient resting comfortably. Patient complains of SOB and congestion. Denies fever, chills, headache, dizziness, cough, chest pain, n/v/, diarrhea, constipation or leg swelling. Allergies: moxifloxacin, azithromycin PMHx: HTN, Asthma, COPD, Diabetes SocialHx: denies alcohol and drug use. 40 year smoking hx. Patient says she smokes "5 cigarettes a day now." Review of Systems - Review of Systems All systems: reviewed and no additional remarkable complaints except (Shortness of breath) Past Patient History - Infectious Disease Hx of Infectious Diseases: None - Past Medical History & Family History Past Medical History?: Yes - Past Social History Smoking Status: Former Smoker - CARDIAC Hx Hypertension: Yes - PULMONARY Hx Asthma: Yes Hx Chronic Obstructive Pulmonary Disease (COPD): Yes - NEUROLOGICAL Hx Neurological Disorder: No - HEENT Hx HEENT Problems: Yes Other/Comment: USES GLASSES - RENAL Hx Chronic Kidney Disease: No - ENDOCRINE/METABOLIC Hx Endocrine Disorders: Yes Hx Diabetes Mellitus Type 2: Yes - HEMATOLOGICAL/ONCOLOGICAL Hx Blood Disorders: No - INTEGUMENTARY Hx Dermatological Problems: No - MUSCULOSKELETAL/RHEUMATOLOGICAL Hx Arthritis: Yes - GASTROINTESTINAL Hx Gastrointestinal Disorders: No - GENITOURINARY/GYNECOLOGICAL Hx Genitourinary Disorders: No - PSYCHIATRIC Hx Substance Use: No - SURGICAL HISTORY Hx Surgeries: Yes Hx Cardiac Catheterization: Yes (2015) - ANESTHESIA Hx Anesthesia: Yes Hx Anesthesia Reactions: No Hx Malignant Hyperthermia: No Meds Allergies/Adverse Reactions: Allergies Allergy/AdvReac Type Severity Reaction Status Date / Time moxifloxacin HCl Allergy Intermediate RASH Verified 02/19/18 09:58 [From Avelox] azithromycin AdvReac ITCHING Verified 02/19/18 09:58 - Medications Medications: Current Medications Albuterol/Ipratropium (Duoneb 3 Mg/0.5 Mg (3 Ml) Ud) 3 ml INH RQ6 [facility] Last Admin: 02/20/18 08:13 Dose: 3 ml Budesonide (Pulmicort Respules) 0.5 mg INH RQ12 [facility] Last Admin: 02/20/18 08:13 Dose: 0.5 mg Dextrose (Dextrose 50% Inj) 0 ml IV STAT PRN; Protocol PRN Reason: Hypoglycemia Protocol Dextrose (Glutose 15) 0 gm PO ONCE PRN; Protocol PRN Reason: Hypoglycemia Protocol Enoxaparin Sodium (Lovenox) 40 mg SC DAILY [facility] Last Admin: 02/20/18 09:49 Dose: 40 mg Glucagon (Glucagen Diagnostic Kit) 0 mg IM STAT PRN; Protocol PRN Reason: Hypoglycemia Protocol Dextrose (Dextrose 5% In Water 1000 Ml) 1,000 mls @ 0 mls/hr IV .Q0M PRN; Protocol; Per Protocol PRN Reason: Hypoglycemia Protocol Insulin Aspart (Novolog) 0 unit SC ACHS [facility] PRN Reason: Protocol Last Admin: 02/20/18 08:14 Dose: Not Given Methylprednisolone (Solu-Medrol) 40 mg IVP Q8 [facility] Last Admin: 02/20/18 05:30 Dose: 40 mg Promethazine HCl/Dextromethorphan (Phenergan Dm Syrup) 5 ml PO Q6H PRN PRN Reason: Cough Last Admin: 02/20/18 10:34 Dose: 5 ml Sitagliptin Phosphate (Januvia) 50 mg PO DAILY [facility] Last Admin: 02/20/18 09:49 Dose: 50 mg Physical Exam - Head Exam Head Exam: ATRAUMATIC, NORMOCEPHALIC - Eye Exam Eye Exam: Normal appearance - ENT Exam ENT Exam: Mucous Membranes Moist - Respiratory Exam Respiratory Exam: Rhonchi, Wheezes - Cardiovascular Exam Cardiovascular Exam: REGULAR RHYTHM - GI/Abdominal Exam GI & Abdominal Exam: Normal Bowel Sounds, Soft Results - Vital Signs Recent Vital Signs: Last Vital Signs Temp 98.9 F 02/20/18 08:00 Pulse 95 H 02/20/18 08:00 Resp 20 02/20/18 08:00 BP 130/73 02/20/18 08:00 Pulse Ox 95 02/20/18 08:00 - Labs Result Diagrams: 02/20/18 06:15 02/20/18 06:15 Labs: Laboratory Results - last 24 hr 02/19/18 02/19/18 02/19/18 11:10 11:10 21:29 WBC 8.6 RBC 5.26 H Hgb 14.5 Hct 44.2 MCV 83.9 D MCH 27.6 MCHC 32.8 L RDW 15.1 H Plt Count 638 H D MPV 9.6 Neut % (Auto) 61.9 Lymph % (Auto) 18.3 L [place] % (Auto) 7.9 Eos % (Auto) 10.9 H Baso % (Auto) 1.0 Neut # (Auto) 5.3 Lymph # (Auto) 1.6 [place] # (Auto) 0.7 Eos # (Auto) 0.9 H Baso # (Auto) 0.1 Neutrophils % (Manual) Band Neutrophils % Lymphocytes % (Manual) Monocytes % (Manual) Differential Comment Platelet Estimate Large Platelets Anisocytosis (manual) Sodium 145 Potassium 3.8 Chloride 104 Carbon Dioxide 30 Anion Gap 16 BUN 8 Creatinine 0.6 L Est GFR ( Amer) > 60 Est GFR (Non-Af Amer) > 60 POC Glucose (mg/dL) 142 H Random Glucose 91 Calcium 8.8 Phosphorus Magnesium Total Bilirubin 0.6 AST 23 ALT 26 Alkaline Phosphatase 61 Troponin I < 0.0120 NT-Pro-B Natriuret Pep 315 Total Protein 6.8 Albumin 4.1 Globulin 2.8 Albumin/Globulin Ratio 1.5 02/20/18 02/20/18 02/20/18 06:15 06:15 07:10 WBC 11.3 H RBC 5.29 H Hgb 14.6 Hct 44.4 MCV 84.0 MCH 27.6 MCHC 32.9 L RDW 14.9 H Plt Count 659 H MPV 9.6 Neut % (Auto) 88.7 H Lymph % (Auto) 8.7 L [place] % (Auto) 2.5 Eos % (Auto) 0.0 Baso % (Auto) 0.1 Neut # (Auto) 10.0 H Lymph # (Auto) 1.0 [place] # (Auto) 0.3 Eos # (Auto) 0.0 Baso # (Auto) 0.0 Neutrophils % (Manual) 89 H Band Neutrophils % 2 Lymphocytes % (Manual) 8 L Monocytes % (Manual) 1 Differential Comment Platelet Estimate Increased H Large Platelets Present Anisocytosis (manual) Slight Sodium 141 Potassium 4.4 Chloride 103 Carbon Dioxide 27 Anion Gap 16 BUN 13 Creatinine 0.7 Est GFR ( Amer) > 60 Est GFR (Non-Af Amer) > 60 POC Glucose (mg/dL) 132 H Random Glucose 137 H Calcium 9.7 Phosphorus 3.0 Magnesium 1.8 Total Bilirubin 0.3 AST 22 ALT 21 Alkaline Phosphatase 66 Troponin I NT-Pro-B Natriuret Pep Total Protein 7.1 Albumin 4.2 Globulin 2.9 Albumin/Globulin Ratio 1.4 Assessment & Plan (1) Asthma exacerbation Status: Acute Comment: IV steroids, nebulizer treatment, antibiotics and antitussives (2) Bronchiectasis Assessment and Plan: patient has vest for bronchiectasis Nebulizer treatment and antibiotics Status: Acute
--- NOTE | 2018-02-20 19:30 | CP.PCM.PN ---
Subjective - Date & Time of Evaluation Date of Evaluation: 02/20/18 Time of Evaluation: 07:20 - Subjective Subjective: clinically same Objective - Vital Signs/Intake and Output Vital Signs (last 24 hours): Temp Pulse Resp BP Pulse Ox 98.2 F 94 H 20 137/80 97 02/20/18 16:00 02/20/18 16:00 02/20/18 16:00 02/20/18 16:00 02/20/18 16:00 Intake and Output: 02/20/18 02/21/18 18:59 06:59 Intake Total 250 Balance 250 - Medications Medications: Current Medications Albuterol/Ipratropium (Duoneb 3 Mg/0.5 Mg (3 Ml) Ud) 3 ml INH RQ6 [facility] Last Admin: 02/20/18 13:30 Dose: 3 ml Budesonide (Pulmicort Respules) 0.5 mg INH RQ12 [facility] Last Admin: 02/20/18 08:13 Dose: 0.5 mg Dextrose (Dextrose 50% Inj) 0 ml IV STAT PRN; Protocol PRN Reason: Hypoglycemia Protocol Dextrose (Glutose 15) 0 gm PO ONCE PRN; Protocol PRN Reason: Hypoglycemia Protocol Enoxaparin Sodium (Lovenox) 40 mg SC DAILY [facility] Last Admin: 02/20/18 09:49 Dose: 40 mg Glucagon (Glucagen Diagnostic Kit) 0 mg IM STAT PRN; Protocol PRN Reason: Hypoglycemia Protocol Dextrose (Dextrose 5% In Water 1000 Ml) 1,000 mls @ 0 mls/hr IV .Q0M PRN; Protocol; Per Protocol PRN Reason: Hypoglycemia Protocol Insulin Aspart (Novolog) 0 unit SC ACHS [facility] PRN Reason: Protocol Last Admin: 02/20/18 11:34 Dose: Not Given Methylprednisolone (Solu-Medrol) 40 mg IVP Q8 [facility] Last Admin: 02/20/18 13:41 Dose: Not Given Promethazine HCl/Dextromethorphan (Phenergan Dm Syrup) 5 ml PO Q6H PRN PRN Reason: Cough Last Admin: 02/20/18 10:34 Dose: 5 ml Sitagliptin Phosphate (Januvia) 50 mg PO DAILY [facility] Last Admin: 02/20/18 09:49 Dose: 50 mg - Labs Labs: 02/20/18 06:15 02/20/18 06:15 - Constitutional Appears: Well - Head Exam Head Exam: ATRAUMATIC, NORMAL INSPECTION, NORMOCEPHALIC - Eye Exam Eye Exam: EOMI, Normal appearance, PERRL Pupil Exam: NORMAL ACCOMODATION, PERRL - ENT Exam ENT Exam: Mucous Membranes Moist, Normal Exam - Neck Exam Neck Exam: Full ROM, Normal Inspection. absent: Lymphadenopathy - Respiratory Exam Respiratory Exam: Decreased Breath Sounds - Cardiovascular Exam Cardiovascular Exam: Irregular Rhythm, REGULAR RHYTHM, +S1 - GI/Abdominal Exam GI & Abdominal Exam: Soft, Diminished Bowel Sounds - Rectal Exam Rectal Exam: Deferred
--- NOTE | 2018-02-20 20:53 | CARD ---
APPROVED REPORT Date of service: 02/19/2018 EKG Measurement Heart [id number] MI [id number] <Conclusion> Normal sinus rhythm Possible Left atrial enlargement Incomplete right bundle branch block Left anterior fascicular block Abnormal ECG
[2018-02-21] MEDS: Albuterol-Ipratrop 3 mg / 0.5 (3 ml) UD INH SCH ×4 (01:36→20:03)
[2018-02-21] MEDS: MethylPREDNISolone 40 mg Vial IVP SCH ×3 (05:45→21:24)
[2018-02-21 07:04] LABS: BASO % 0.2 % (0.0-2.0); HEMOGLOBIN 14.9 g/dL (11.0-16.0); LYMPH # 0.8 K/uL (1.0-4.3); LYMPH % 5.9 % (20.0-40.0); MEAN CORPUSCULAR HEMOGLOBIN 28.2 pg (27.0-31.0); MEAN CORPUSCULAR HGB CONC 33.6 g/dL (33.0-37.0); MEAN PLATELET VOLUME 9.7 fL (7.2-11.7); MONO # 0.5 K/uL (0.0-0.8); MONO % 3.7 % (0.0-10.0); NEUT # 12.6 K/uL (1.8-7.0); NEUT % 90.2 % (50.0-75.0); PLATELET COUNT 693 K/uL (130-400); RED CELL DISTRIBUTION WIDTH 15.1 % (11.5-14.5)
[2018-02-21 07:18] LABS: ALB/GLOB RATIO 1.5 (1.0-2.1); ALBUMIN 4.4 g/dL (3.5-5.0); ALT/SGPT 23 U/L (9-52); AST/SGOT 27 U/L (14-36); BLOOD UREA NITROGEN 20 mg/dL (7-17); CALCIUM 9.7 mg/dl (8.6-10.4); GFR AFRICAN-AMERICAN > 60; GFR NON-AFRICAN AMERICAN > 60
[2018-02-21] MEDS: (Novolog) Insulin Aspart, Recombinant 100 u/ml 10 ml vial SC SCH ×4 (07:30→22:14)
[2018-02-21] MEDS: Budesonide 0.5 mg/2 ml Inhal Susp UD INH SCH ×2 (08:21→20:03)
[2018-02-21 08:36] LABS: BANDS 1 % (0-2); LYMPHOCYTE 11 % (20-40); MONOCYTE 5 % (0-10); NEUTROPHIL 82 % (50-75); REACTIVE LYMPHOCYTES 1 % (0-0); TOTAL CELLS COUNTED 100
[2018-02-21 08:37] LABS: ANISOCYTOSIS SLIGHT; LARGE PLATELETS PRESENT; PLATELET CLUMPS PRESENT; PLATELET ESTIMATE MARKEDLY INCREASED (NORMAL)
[2018-02-21] MEDS: Enoxaparin 40 mg Syringe SC SCH (09:45)
--- NOTE | 2018-02-21 12:46 | CP.PCM.PN ---
Subjective - Date & Time of Evaluation Time of Evaluation: 07:20 - Subjective Subjective: clinically same Objective - Vital Signs/Intake and Output Vital Signs (last 24 hours): Temp Pulse Resp BP Pulse Ox 99.2 F 98 H 20 149/94 H 95 02/21/18 08:00 02/21/18 08:00 02/21/18 08:00 02/21/18 08:00 02/21/18 08:00 Intake and Output: 02/21/18 02/21/18 06:59 18:59 Intake Total 300 Output Total 500 Balance -200 - Medications Medications: Current Medications Acetaminophen (Tylenol 325mg Tab) 650 mg PO Q6 PRN PRN Reason: Headache Albuterol/Ipratropium (Duoneb 3 Mg/0.5 Mg (3 Ml) Ud) 3 ml INH RQ6 [facility] Last Admin: 02/21/18 08:19 Dose: 3 ml Budesonide (Pulmicort Respules) 0.5 mg INH RQ12 [facility] Last Admin: 02/21/18 08:21 Dose: 0.5 mg Dextrose (Dextrose 50% Inj) 0 ml IV STAT PRN; Protocol PRN Reason: Hypoglycemia Protocol Dextrose (Glutose 15) 0 gm PO ONCE PRN; Protocol PRN Reason: Hypoglycemia Protocol Enoxaparin Sodium (Lovenox) 40 mg SC DAILY [facility] Last Admin: 02/21/18 09:45 Dose: 40 mg Glucagon (Glucagen Diagnostic Kit) 0 mg IM STAT PRN; Protocol PRN Reason: Hypoglycemia Protocol Dextrose (Dextrose 5% In Water 1000 Ml) 1,000 mls @ 0 mls/hr IV .Q0M PRN; Protocol; Per Protocol PRN Reason: Hypoglycemia Protocol Insulin Aspart (Novolog) 0 unit SC ACHS [facility] PRN Reason: Protocol Last Admin: 02/21/18 11:41 Dose: Not Given Meclizine HCl (Antivert) 25 mg PO Q8H PRN PRN Reason: Dizziness Last Admin: 02/21/18 05:56 Dose: 25 mg Methylprednisolone (Solu-Medrol) 40 mg IVP Q8 [facility] Last Admin: 02/21/18 05:45 Dose: 40 mg Promethazine HCl/Dextromethorphan (Phenergan Dm Syrup) 5 ml PO Q6H PRN PRN Reason: Cough Last Admin: 02/20/18 21:04 Dose: 5 ml Sitagliptin Phosphate (Januvia) 50 mg PO DAILY [facility] Last Admin: 02/21/18 09:45 Dose: 50 mg - Labs Labs: 02/21/18 06:52 02/21/18 06:52 - Constitutional Appears: Well - Head Exam Head Exam: ATRAUMATIC, NORMAL INSPECTION, NORMOCEPHALIC - Eye Exam Eye Exam: EOMI, Normal appearance, PERRL Pupil Exam: NORMAL ACCOMODATION, PERRL - ENT Exam ENT Exam: Mucous Membranes Moist, Normal Exam - Neck Exam Neck Exam: Full ROM, Normal Inspection. absent: Lymphadenopathy - Respiratory Exam Respiratory Exam: Decreased Breath Sounds - Cardiovascular Exam Cardiovascular Exam: REGULAR RHYTHM, +S1, +S2 - GI/Abdominal Exam GI & Abdominal Exam: Soft, Diminished Bowel Sounds - Rectal Exam Rectal Exam: Deferred
--- NOTE | 2018-02-21 14:58 | CP.PCM.PN ---
Subjective - Date & Time of Evaluation Date of Evaluation: 02/21/18 Time of Evaluation: 12:00 - Subjective Subjective: patient seen and examined Complaining of headache and vertigo Also complaining off cough with scanty sputum Less shortness of breath Afebrile Objective - Vital Signs/Intake and Output Vital Signs (last 24 hours): Temp Pulse Resp BP Pulse Ox 99.2 F 98 H 20 149/94 H 95 02/21/18 08:00 02/21/18 08:00 02/21/18 08:00 02/21/18 08:00 02/21/18 08:00 Intake and Output: 02/21/18 02/21/18 06:59 18:59 Intake Total 300 Output Total 500 Balance -200 - Medications Medications: Current Medications Acetaminophen (Tylenol 325mg Tab) 650 mg PO Q6 PRN PRN Reason: Headache Albuterol/Ipratropium (Duoneb 3 Mg/0.5 Mg (3 Ml) Ud) 3 ml INH RQ6 [facility] Last Admin: 02/21/18 13:08 Dose: 3 ml Budesonide (Pulmicort Respules) 0.5 mg INH RQ12 [facility] Last Admin: 02/21/18 08:21 Dose: 0.5 mg Dextrose (Dextrose 50% Inj) 0 ml IV STAT PRN; Protocol PRN Reason: Hypoglycemia Protocol Dextrose (Glutose 15) 0 gm PO ONCE PRN; Protocol PRN Reason: Hypoglycemia Protocol Enoxaparin Sodium (Lovenox) 40 mg SC DAILY [facility] Last Admin: 02/21/18 09:45 Dose: 40 mg Glucagon (Glucagen Diagnostic Kit) 0 mg IM STAT PRN; Protocol PRN Reason: Hypoglycemia Protocol Dextrose (Dextrose 5% In Water 1000 Ml) 1,000 mls @ 0 mls/hr IV .Q0M PRN; Protocol; Per Protocol PRN Reason: Hypoglycemia Protocol Insulin Aspart (Novolog) 0 unit SC ACHS [facility] PRN Reason: Protocol Last Admin: 02/21/18 11:41 Dose: Not Given Meclizine HCl (Antivert) 25 mg PO Q8H PRN PRN Reason: Dizziness Last Admin: 02/21/18 05:56 Dose: 25 mg Promethazine HCl/Dextromethorphan (Phenergan Dm Syrup) 5 ml PO Q6H PRN PRN Reason: Cough Last Admin: 02/20/18 21:04 Dose: 5 ml Sitagliptin Phosphate (Januvia) 50 mg PO DAILY [facility] Last Admin: 02/21/18 09:45 Dose: 50 mg Tramadol HCl (Ultram) 50 mg PO Q6 PRN PRN Reason: Pain, moderate (4-7) - Labs Labs: 02/21/18 06:52 02/21/18 06:52 - Head Exam Head Exam: ATRAUMATIC, NORMOCEPHALIC - ENT Exam ENT Exam: Mucous Membranes Moist - Neck Exam Neck Exam: Normal Inspection - Respiratory Exam Respiratory Exam: Rhonchi, Wheezes - Cardiovascular Exam Cardiovascular Exam: REGULAR RHYTHM - GI/Abdominal Exam GI & Abdominal Exam: Soft, Normal Bowel Sounds Assessment and Plan (1) Asthma exacerbation Assessment & Plan: continue nebulizer treatment IV steroids Antibiotics Antitussive Status: Acute (2) Bronchiectasis Status: Acute
[2018-02-21] MEDS: Apap-Butalbital-Caffeine 325-50-40mg Tab PO PRN (19:07)
[2018-02-22] MEDS: Albuterol-Ipratrop 3 mg / 0.5 (3 ml) UD INH SCH ×4 (01:32→20:57)
[2018-02-22] MEDS: MethylPREDNISolone 40 mg Vial IVP SCH ×3 (05:42→21:10)
[2018-02-22] MEDS: Promethazine DM 6.25 mg-15 mg/5 ml Syrup PO PRN ×2 (05:43→13:58)
[2018-02-22] MEDS: Apap-Butalbital-Caffeine 325-50-40mg Tab PO PRN ×2 (05:43→15:56)
[2018-02-22] MEDS: (Novolog) Insulin Aspart, Recombinant 100 u/ml 10 ml vial SC SCH ×4 (07:56→22:12)
[2018-02-22] MEDS: Budesonide 0.5 mg/2 ml Inhal Susp UD INH SCH ×2 (07:58→20:58)
[2018-02-22] MEDS: Enoxaparin 40 mg Syringe SC SCH (09:34)
--- NOTE | 2018-02-22 13:26 | CP.PCM.PN ---
Subjective - Date & Time of Evaluation Date of Evaluation: 02/22/18 Time of Evaluation: 07:20 - Subjective Subjective: clinically same Objective - Vital Signs/Intake and Output Vital Signs (last 24 hours): Temp Pulse Resp BP Pulse Ox 98.1 F 88 20 132/82 97 02/22/18 08:00 02/22/18 08:00 02/22/18 08:00 02/22/18 08:00 02/22/18 08:00 Intake and Output: 02/22/18 02/22/18 06:59 18:59 Intake Total 240 Balance 240 - Medications Medications: Current Medications Acetaminophen (Tylenol 325mg Tab) 650 mg PO Q6 PRN PRN Reason: Headache Last Admin: 02/21/18 21:32 Dose: 650 mg Acetaminophen/Butalbital/Caffeine (Fioricet) 1 tab PO Q8 PRN PRN Reason: Headache Last Admin: 02/22/18 05:43 Dose: 1 tab Albuterol/Ipratropium (Duoneb 3 Mg/0.5 Mg (3 Ml) Ud) 3 ml INH RQ6 [facility] Last Admin: 02/22/18 13:06 Dose: 3 ml Budesonide (Pulmicort Respules) 0.5 mg INH RQ12 [facility] Last Admin: 02/22/18 07:58 Dose: 0.5 mg Dextrose (Dextrose 50% Inj) 0 ml IV STAT PRN; Protocol PRN Reason: Hypoglycemia Protocol Dextrose (Glutose 15) 0 gm PO ONCE PRN; Protocol PRN Reason: Hypoglycemia Protocol Enoxaparin Sodium (Lovenox) 40 mg SC DAILY [facility] Last Admin: 02/22/18 09:34 Dose: 40 mg Glucagon (Glucagen Diagnostic Kit) 0 mg IM STAT PRN; Protocol PRN Reason: Hypoglycemia Protocol Dextrose (Dextrose 5% In Water 1000 Ml) 1,000 mls @ 0 mls/hr IV .Q0M PRN; Protocol; Per Protocol PRN Reason: Hypoglycemia Protocol Insulin Aspart (Novolog) 0 unit SC ACHS [facility] PRN Reason: Protocol Last Admin: 02/22/18 11:41 Dose: Not Given Meclizine HCl (Antivert) 25 mg PO Q8H PRN PRN Reason: Dizziness Last Admin: 02/21/18 23:52 Dose: 25 mg Methylprednisolone (Solu-Medrol) 20 mg IVP Q8 [facility] Last Admin: 02/22/18 05:42 Dose: 20 mg Promethazine HCl/Dextromethorphan (Phenergan Dm Syrup) 5 ml PO Q6H PRN PRN Reason: Cough Last Admin: 02/22/18 05:43 Dose: 5 ml Sitagliptin Phosphate (Januvia) 50 mg PO DAILY [facility] Last Admin: 02/22/18 09:33 Dose: 50 mg - Labs Labs: 02/21/18 06:52 02/21/18 06:52 - Constitutional Appears: Well - Head Exam Head Exam: ATRAUMATIC, NORMAL INSPECTION, NORMOCEPHALIC - Eye Exam Eye Exam: EOMI, Normal appearance, PERRL Pupil Exam: NORMAL ACCOMODATION, PERRL - ENT Exam ENT Exam: Mucous Membranes Moist, Normal Exam - Neck Exam Neck Exam: Full ROM, Normal Inspection. absent: Lymphadenopathy - Respiratory Exam Respiratory Exam: Decreased Breath Sounds - Cardiovascular Exam Cardiovascular Exam: REGULAR RHYTHM, +S1, +S2 - GI/Abdominal Exam GI & Abdominal Exam: Soft, Diminished Bowel Sounds - Rectal Exam Rectal Exam: Deferred
--- NOTE | 2018-02-22 14:10 | CP.PCM.PN ---
Subjective - Date & Time of Evaluation Date of Evaluation: 02/22/18 Time of Evaluation: 12:00 - Subjective Subjective: Still complaining of cough and shortness of breath Also complaining of headache Mostly wheezing Afebrile No chest pain Continue nebulizer treatment and IV steroids Objective - Vital Signs/Intake and Output Vital Signs (last 24 hours): Temp Pulse Resp BP Pulse Ox 98.1 F 88 20 132/82 97 02/22/18 08:00 02/22/18 08:00 02/22/18 08:00 02/22/18 08:00 02/22/18 08:00 Intake and Output: 02/22/18 02/22/18 06:59 18:59 Intake Total 240 260 Balance 240 260 - Medications Medications: Current Medications Acetaminophen (Tylenol 325mg Tab) 650 mg PO Q6 PRN PRN Reason: Headache Last Admin: 02/21/18 21:32 Dose: 650 mg Acetaminophen/Butalbital/Caffeine (Fioricet) 1 tab PO Q8 PRN PRN Reason: Headache Last Admin: 02/22/18 05:43 Dose: 1 tab Albuterol/Ipratropium (Duoneb 3 Mg/0.5 Mg (3 Ml) Ud) 3 ml INH RQ6 [facility] Last Admin: 02/22/18 13:06 Dose: 3 ml Budesonide (Pulmicort Respules) 0.5 mg INH RQ12 [facility] Last Admin: 02/22/18 07:58 Dose: 0.5 mg Dextrose (Dextrose 50% Inj) 0 ml IV STAT PRN; Protocol PRN Reason: Hypoglycemia Protocol Dextrose (Glutose 15) 0 gm PO ONCE PRN; Protocol PRN Reason: Hypoglycemia Protocol Enoxaparin Sodium (Lovenox) 40 mg SC DAILY [facility] Last Admin: 02/22/18 09:34 Dose: 40 mg Glucagon (Glucagen Diagnostic Kit) 0 mg IM STAT PRN; Protocol PRN Reason: Hypoglycemia Protocol Dextrose (Dextrose 5% In Water 1000 Ml) 1,000 mls @ 0 mls/hr IV .Q0M PRN; Protocol; Per Protocol PRN Reason: Hypoglycemia Protocol Insulin Aspart (Novolog) 0 unit SC ACHS [facility] PRN Reason: Protocol Last Admin: 02/22/18 11:41 Dose: Not Given Meclizine HCl (Antivert) 25 mg PO Q8H PRN PRN Reason: Dizziness Last Admin: 02/21/18 23:52 Dose: 25 mg Methylprednisolone (Solu-Medrol) 20 mg IVP Q8 [facility] Last Admin: 02/22/18 13:25 Dose: 20 mg Promethazine HCl/Dextromethorphan (Phenergan Dm Syrup) 5 ml PO Q6H PRN PRN Reason: Cough Last Admin: 02/22/18 13:58 Dose: 5 ml Sitagliptin Phosphate (Januvia) 50 mg PO DAILY [facility] Last Admin: 02/22/18 09:33 Dose: 50 mg - Labs Labs: 02/21/18 06:52 02/21/18 06:52 Assessment and Plan (1) Asthma exacerbation Status: Acute (2) Bronchiectasis Status: Acute
[2018-02-23] MEDS: Albuterol-Ipratrop 3 mg / 0.5 (3 ml) UD INH SCH ×4 (02:55→19:15)
[2018-02-23] MEDS: Apap-Butalbital-Caffeine 325-50-40mg Tab PO PRN ×2 (05:46→19:55)
[2018-02-23] MEDS: Promethazine DM 6.25 mg-15 mg/5 ml Syrup PO PRN ×2 (05:46→19:56)
[2018-02-23] MEDS: MethylPREDNISolone 40 mg Vial IVP SCH ×3 (05:46→22:07)
[2018-02-23] MEDS: (Novolog) Insulin Aspart, Recombinant 100 u/ml 10 ml vial SC SCH ×4 (07:36→22:00)
[2018-02-23] MEDS: Budesonide 0.5 mg/2 ml Inhal Susp UD INH SCH ×2 (08:18→19:15)
[2018-02-23] MEDS: Enoxaparin 40 mg Syringe SC SCH (09:03)
[2018-02-23] MEDS ORDERED: Bisacodyl 5mg EC Tab PO ONE (11:30)
--- NOTE | 2018-02-23 12:42 | CP.PCM.PN ---
Subjective - Date & Time of Evaluation Date of Evaluation: 02/23/18 Time of Evaluation: 09:00 - Subjective Subjective: patient seen and examined Still wheezing and cough Patient states that she feels better Afebrile No chest pain Objective - Vital Signs/Intake and Output Vital Signs (last 24 hours): Temp Pulse Resp BP Pulse Ox 98.8 F 99 H 20 127/80 95 02/23/18 07:44 02/23/18 07:44 02/23/18 07:44 02/23/18 07:44 02/23/18 07:44 Intake and Output: 02/23/18 02/23/18 06:59 18:59 Intake Total 540 Balance 540 - Medications Medications: Current Medications Acetaminophen (Tylenol 325mg Tab) 650 mg PO Q6 PRN PRN Reason: Headache Last Admin: 02/21/18 21:32 Dose: 650 mg Acetaminophen/Butalbital/Caffeine (Fioricet) 1 tab PO Q8 PRN PRN Reason: Headache Last Admin: 02/23/18 05:46 Dose: 1 tab Albuterol/Ipratropium (Duoneb 3 Mg/0.5 Mg (3 Ml) Ud) 3 ml INH RQ6 [facility] Last Admin: 02/23/18 08:18 Dose: 3 ml Budesonide (Pulmicort Respules) 0.5 mg INH RQ12 [facility] Last Admin: 02/23/18 08:18 Dose: 0.5 mg Dextrose (Dextrose 50% Inj) 0 ml IV STAT PRN; Protocol PRN Reason: Hypoglycemia Protocol Dextrose (Glutose 15) 0 gm PO ONCE PRN; Protocol PRN Reason: Hypoglycemia Protocol Docusate Sodium (Colace) 100 mg PO BID [facility] Enoxaparin Sodium (Lovenox) 40 mg SC DAILY [facility] Last Admin: 02/23/18 09:03 Dose: 40 mg Glucagon (Glucagen Diagnostic Kit) 0 mg IM STAT PRN; Protocol PRN Reason: Hypoglycemia Protocol Insulin Aspart (Novolog) 0 unit SC ACHS [facility] PRN Reason: Protocol Last Admin: 02/23/18 11:39 Dose: Not Given Meclizine HCl (Antivert) 25 mg PO Q8H PRN PRN Reason: Dizziness Last Admin: 02/21/18 23:52 Dose: 25 mg Methylprednisolone (Solu-Medrol) 20 mg IVP Q8 [facility] Last Admin: 02/23/18 05:46 Dose: 20 mg Promethazine HCl/Dextromethorphan (Phenergan Dm Syrup) 5 ml PO Q6H PRN PRN Reason: Cough Last Admin: 02/23/18 05:46 Dose: 5 ml Sitagliptin Phosphate (Januvia) 50 mg PO DAILY [facility] Last Admin: 02/23/18 09:03 Dose: 50 mg - Labs Labs: 02/21/18 06:52 02/21/18 06:52 - Head Exam Head Exam: ATRAUMATIC, NORMOCEPHALIC - ENT Exam ENT Exam: Mucous Membranes Moist - Neck Exam Neck Exam: Normal Inspection - Respiratory Exam Respiratory Exam: Rhonchi, Wheezes - Cardiovascular Exam Cardiovascular Exam: REGULAR RHYTHM - GI/Abdominal Exam GI & Abdominal Exam: Soft, Normal Bowel Sounds - Extremities Exam Extremities Exam: Full ROM, Normal Inspection Assessment and Plan (1) Asthma exacerbation Assessment & Plan: switch to p.o. prednisone Nebulizer treatment Antibiotics Antitussive Status: Acute (2) Bronchiectasis Status: Acute
--- NOTE | 2018-02-23 19:04 | CP.PCM.PN ---
Subjective - Date & Time of Evaluation Date of Evaluation: 02/23/18 Time of Evaluation: 07:20 - Subjective Subjective: clinically same Objective - Vital Signs/Intake and Output Vital Signs (last 24 hours): Temp Pulse Resp BP Pulse Ox 98.3 F 92 H 20 114/79 95 02/23/18 16:32 02/23/18 16:32 02/23/18 16:32 02/23/18 16:32 02/23/18 16:32 Intake and Output: 02/23/18 02/24/18 18:59 06:59 Intake Total 300 Balance 300 - Medications Medications: Current Medications Acetaminophen (Tylenol 325mg Tab) 650 mg PO Q6 PRN PRN Reason: Headache Last Admin: 02/21/18 21:32 Dose: 650 mg Acetaminophen/Butalbital/Caffeine (Fioricet) 1 tab PO Q8 PRN PRN Reason: Headache Last Admin: 02/23/18 05:46 Dose: 1 tab Albuterol/Ipratropium (Duoneb 3 Mg/0.5 Mg (3 Ml) Ud) 3 ml INH RQ6 [facility] Last Admin: 02/23/18 14:17 Dose: 3 ml Budesonide (Pulmicort Respules) 0.5 mg INH RQ12 [facility] Last Admin: 02/23/18 08:18 Dose: 0.5 mg Dextrose (Dextrose 50% Inj) 0 ml IV STAT PRN; Protocol PRN Reason: Hypoglycemia Protocol Dextrose (Glutose 15) 0 gm PO ONCE PRN; Protocol PRN Reason: Hypoglycemia Protocol Docusate Sodium (Colace) 100 mg PO BID [facility] Last Admin: 02/23/18 17:21 Dose: 100 mg Enoxaparin Sodium (Lovenox) 40 mg SC DAILY [facility] Last Admin: 02/23/18 09:03 Dose: 40 mg Glucagon (Glucagen Diagnostic Kit) 0 mg IM STAT PRN; Protocol PRN Reason: Hypoglycemia Protocol Insulin Aspart (Novolog) 0 unit SC ACHS [facility] PRN Reason: Protocol Last Admin: 02/23/18 17:21 Dose: Not Given Meclizine HCl (Antivert) 25 mg PO Q8H PRN PRN Reason: Dizziness Last Admin: 02/21/18 23:52 Dose: 25 mg Methylprednisolone (Solu-Medrol) 20 mg IVP Q8 [facility] Last Admin: 02/23/18 13:47 Dose: 20 mg Promethazine HCl/Dextromethorphan (Phenergan Dm Syrup) 5 ml PO Q6H PRN PRN Reason: Cough Last Admin: 02/23/18 05:46 Dose: 5 ml Sitagliptin Phosphate (Januvia) 50 mg PO DAILY [facility] Last Admin: 02/23/18 09:03 Dose: 50 mg - Labs Labs: 02/21/18 06:52 02/21/18 06:52 - Constitutional Appears: Well - Head Exam Head Exam: ATRAUMATIC, NORMAL INSPECTION, NORMOCEPHALIC - Eye Exam Eye Exam: EOMI, Normal appearance, PERRL Pupil Exam: NORMAL ACCOMODATION, PERRL - ENT Exam ENT Exam: Mucous Membranes Moist, Normal Exam - Neck Exam Neck Exam: Full ROM, Normal Inspection. absent: Lymphadenopathy - Respiratory Exam Respiratory Exam: Decreased Breath Sounds - Cardiovascular Exam Cardiovascular Exam: REGULAR RHYTHM, +S1, +S2 - GI/Abdominal Exam GI & Abdominal Exam: Soft, Diminished Bowel Sounds - Rectal Exam Rectal Exam: Deferred
[2018-02-24] MEDS: Albuterol-Ipratrop 3 mg / 0.5 (3 ml) UD INH SCH ×3 (02:34→13:25)
[2018-02-24] MEDS: MethylPREDNISolone 40 mg Vial IVP SCH ×2 (05:37→15:00)
[2018-02-24 06:42] LABS: BASO % 0.1 % (0.0-2.0); MONO # 0.8 K/uL (0.0-0.8); NRBC % 0.1 % (0.0-2.0)
[2018-02-24 06:44] LABS: HEMOGLOBIN 14.7 g/dL (11.0-16.0); LYMPH % 8.7 % (20.0-40.0); MEAN CELL VOLUME 84.2 fL (81.0-99.0); MEAN CORPUSCULAR HEMOGLOBIN 27.2 pg (27.0-31.0); MEAN CORPUSCULAR HGB CONC 32.3 g/dL (33.0-37.0); MEAN PLATELET VOLUME 9.6 fL (7.2-11.7); NEUT # 9.5 K/uL (1.8-7.0); NEUT % 84.2 % (50.0-75.0); PLATELET COUNT 691 K/uL (130-400); RBC 5.39 Mil/uL (3.80-5.20); RED CELL DISTRIBUTION WIDTH 14.6 % (11.5-14.5); WHITE BLOOD COUNT 11.2 K/uL (4.8-10.8)
[2018-02-24 07:17] LABS: BLOOD UREA NITROGEN 19 mg/dL (7-17); CALCIUM 8.9 mg/dl (8.6-10.4); GFR AFRICAN-AMERICAN > 60; GFR NON-AFRICAN AMERICAN > 60
[2018-02-24] MEDS: Budesonide 0.5 mg/2 ml Inhal Susp UD INH SCH (07:19)
[2018-02-24] MEDS: (Novolog) Insulin Aspart, Recombinant 100 u/ml 10 ml vial SC SCH ×2 (08:25→12:00)
[2018-02-24 08:42] LABS: BANDS 3 % (0-2); LYMPHOCYTE 9 % (20-40); MONOCYTE 8 % (0-10); NEUTROPHIL 80 % (50-75); PLATELET ESTIMATE INCREASED (NORMAL); TOTAL CELLS COUNTED 100
[2018-02-24 08:43] LABS: GIANT PLATELETS PRESENT; LARGE PLATELETS PRESENT
[2018-02-24] MEDS: Enoxaparin 40 mg Syringe SC SCH (09:58)
[2018-02-24] MEDS: Apap-Butalbital-Caffeine 325-50-40mg Tab PO PRN (11:27)
[2018-02-24 16:04] VITALS: BP 144/76; PULSE 89; TEMP 98.2; O2SAT 96
--- NOTE | 2018-02-24 16:48 | CP.PCM.PN ---
Subjective - Date & Time of Evaluation Date of Evaluation: 02/24/18 Time of Evaluation: 11:00 - Subjective Subjective: Alert and orientedx3, no acute wheezing or distress. Objective - Vital Signs/Intake and Output Vital Signs (last 24 hours): Temp Pulse Resp BP Pulse Ox 98.2 F 89 20 144/76 96 02/24/18 15:30 02/24/18 15:30 02/24/18 15:30 02/24/18 15:30 02/24/18 15:30 Intake and Output: 02/24/18 02/24/18 06:59 18:59 Intake Total 550 480 Balance 550 480 - Labs Labs: 02/24/18 06:30 02/24/18 06:30 Assessment and Plan - Assessment and Plan (Free Text) Assessment: Patient is seen and examined. Alert and oriented x3, no active wheezing or distress. Chest xray showed no active . Discussed with DR Jabari Contreras, plan to discharge home on tapering dose of prednisone. Advised to follow up in the office in 1 week. Continue with all the present meds.
== END 2018-02-24 16:28 | disposition home or self-care (01) | DRG 191 ==
LOC: C.ER 09:55 → C.3T 16:19 → OBSVTOIN 02-21 13:05
PROVIDERS: ADMIT Internal Medicine Nephrology; ATTEND Internal Medicine Nephrology
DX: J44.1 Chronic obstructive pulmonary disease with (acute) exacerbation (principal); J45.901 Unspecified asthma with (acute) exacerbation; E11.9 Type 2 diabetes mellitus without complications; E78.00 Pure hypercholesterolemia, unspecified; F17.210 Nicotine dependence, cigarettes, uncomplicated; I10 Essential (primary) hypertension; J44.9 Chronic obstructive pulmonary disease, unspecified; Z99.81 Dependence on supplemental oxygen; Z79.4 Long term (current) use of insulin

== ENCOUNTER 2018-07-02 09:16 | Emergency (ER) | payer MEDICARE, MEDICAID ==
[2018-07-02 09:16] VITALS: BMI 26.5
[2018-07-02] MEDS ORDERED: Albuterol-Ipratrop 3 mg / 0.5 (3 ml) UD INH STA ×2 (09:25→10:39)
[2018-07-02] MEDS ORDERED: Albuterol-Ipratrop 3 mg / 0.5 (3 ml) UD ONE ×2 (09:26→10:46)
[2018-07-02 09:28] VITALS: TEMP 98.4
--- NOTE | 2018-07-02 10:03 | C.PDOC ---
History Of Present Illness 72 y/o female with history of Asthma and COPD presents to ED with c/o increased sob after running out of medication 3 days ago. Patient reports some cough with white phlegm production. Patient received neb treatment during triage and currently speaking in full sentences, denies chest pain, fever, leg swelling, nausea, vomiting, headache or any other complaints at this time. Time Seen by Provider: 07/02/18 09:40 Chief Complaint (Nursing): Shortness Of Breath History Per: Patient History/Exam Limitations: no limitations Onset/Duration Of Symptoms: Days Current Symptoms Are (Timing): Still Present Past Medical History Reviewed: Historical Data, Nursing Documentation, Vital Signs Vital Signs: Last Vital Signs Temp 98.4 F 07/02/18 09:25 Pulse 86 07/02/18 09:25 Resp 16 07/02/18 09:25 BP 134/85 07/02/18 09:25 Pulse Ox 96 07/02/18 09:25 - Medical History PMH: Arthritis, Asthma, COPD, Diabetes, HTN Surgical History: No Surg Hx Family History: States: No Known Family Hx - Social History Hx Tobacco Use: Yes (Last use 3 days ago) Hx Alcohol Use: No Hx Substance Use: No - Immunization History Hx Tetanus Toxoid Vaccination: No Hx Influenza Vaccination: Yes Hx Pneumococcal Vaccination: Yes Review Of Systems Constitutional: Negative for: Fever, Chills Cardiovascular: Negative for: Chest Pain, Palpitations Respiratory: Positive for: Cough, Shortness of Breath Gastrointestinal: Negative for: Nausea, Vomiting, Abdominal Pain Musculoskeletal: Negative for: Back Pain Skin: Negative for: Rash Neurological: Negative for: Headache Physical Exam - Physical Exam Appears: Non-toxic, No Acute Distress Skin: Warm, Dry, No Rash Head: Atraumatic, Normacephalic Eye(s): bilateral: Normal Inspection Oral Mucosa: Moist Throat: Normal, No Erythema, No Exudate Neck: Normal ROM, Supple Cardiovascular: Rhythm Regular Respiratory: Rales (diffuse), No Rhonchi, No Stridor, Wheezing (scattered) Gastrointestinal/Abdominal: Soft, No Tenderness, No Guarding, No Rebound Back: No CVA Tenderness Extremity: Normal ROM, No Pedal Edema, Capillary Refill (<2 seconds) Neurological/Psych: Oriented x3, Normal Speech, Normal Cognition ED Course And Treatment O2 Sat by Pulse Oximetry: 96 (RA) Pulse Ox Interpretation: Normal Medical Decision Making Medical Decision Making: Patient given second duoneb treatment and 20mg prednisone PO. On re-eval patient states that she feels better, is ambulating around the ED, speaking in full sentences and saying that she wants to go home. Rx written for prednisone and ventolin inhaler as patient states she ran out of these medications at home. Disposition - Disposition Disposition: HOME/ ROUTINE Disposition Time: 13:10 Condition: STABLE Additional Instructions: IRMA SNIDER, thank you for letting us take care of you today. Your provider was Vira Moore MD and you were treated for ASTHMA. The emergency medical care you received today was directed at your acute symptoms. If you were prescribed any medication, please fill it and take as directed. It may take several days for your symptoms to resolve. Return to the Emergency Department if your symptoms worsen, do not improve, or if you have any other problems. Please contact your doctor or call one of the physicians/clinics you have been referred to that are listed on the Patient Visit Information form that is included in your discharge packet. Bring any paperwork you were given at the [facility] with you along with any medications you are taking to your follow up visit. Our treatment cannot replace ongoing medical care by a primary care provider outside of the emergency department. Thank you for allowing the [facility] team to be part of your care today. If you had an X-Ray or CT scan: A Radiologist will review the ED reading if any change in treatment is needed we will contact you. If you had a blood, urine, or wound culture: It will take several days for the results, if any change in treatment is needed we will contact you. If you had an STI test: It will take 48 hours for the results. Please call after 1 week if you have not heard back. Prescriptions: Albuterol Sulfate [Ventolin Hfa] 2 puff IH Q4H PRN #1 inh PRN Reason: Wheezing RX: Prednisone [Deltasone] 20 mg PO DAILY #5 tablet Instructions: Exacerbation of COPD (DC) Forms: theAudience (Vietnamese) - Clinical Impression Clinical Impression: COPD exacerbation - Scribe Statement The provider has reviewed the documentation as recorded by the Aracelisibe Margaret Guallpa All medical record entries made by the Scribe were at my direction and personally dictated by me. I have reviewed the chart and agree that the record accurately reflects my personal performance of the history, physical exam, medical decision making, and the department course for this patient. I have also personally directed, reviewed, and agree with the discharge instructions and disposition.
[2018-07-02 12:19] VITALS: BP 137/76; PULSE 75; RESP 18
[2018-07-02 14:52] VITALS: O2SAT 96
== END 2018-07-02 13:56 | disposition home or self-care (01) ==
LOC: C.ER 09:16
DX: J44.1 Chronic obstructive pulmonary disease with (acute) exacerbation (principal)